=== PATIENT | female | born 1970 | race Caucasian/White ===

== ENCOUNTER → 2016-05-23 | Outpatient (CLI) | payer BC ==
[~2016-05-23] MED LIST: FAMO20TA5 PO; HYDR-3454 PO; bcp
--- NOTE | 2016-05-26 19:57 | Diagnostic Imaging Report ---
Bilateral screening mammogram The current study was also evaluated with a Computer Aided Detection (CAD) system. Indication: Screening. No current complaints stated on the questionnaire. COMPARISON: 05/14/15. FINDINGS: The breasts are composed of heterogeneously dense parenchyma which may decrease mammographic sensitivity. There are scattered benign-appearing calcifications. Allowing for technique and positional differences, no suspicious change is seen. IMPRESSION: Dense breasts with no definite change. ACR BI-RADS Category 2: Benign findings. Result letter will be mailed to the patient. Note: At least 10% of breast cancer is not imaged by mammography. Dictated by: Dictated on workstation # [id number]
== END ==
LOC: RAD 14:12
PROVIDERS: ATTEND Obstetrics & Gynecology
DX: Z12.31 Encounter for screening mammogram for malignant neoplasm of breast (principal)
CPT/HCPCS: 77067

== ENCOUNTER 2017-08-18 05:32 | Outpatient (CLI) | payer BC ==
[~2017-08-18] VITALS: Ht 165.1 cm; Wt 69.9 kg
[2017-08-21] MEDS ORDERED: OXYC-471 PO (13:29)
== END 2017-08-18 13:20 | disposition home or self-care (01) ==
LOC: PREOP 05:32
PROVIDERS: ATTEND Obstetrics & Gynecology
DX: Z01.818 Encounter for other preprocedural examination (principal)

== ENCOUNTER → 2017-09-10 | Outpatient (CLI) | payer BC ==
[~2017-09-10] MED LIST changes: +OXYC-471 PO
--- NOTE | 2017-09-10 19:56 | Diagnostic Imaging Report ---
INDICATION: Routine screening. COMPARISON: Comparison is made with prior mammogram from 05/23/2016 and 05/14/2015. TECHNIQUE: 2D and 3D bilateral screening mammography was performed with computer-aided detection (CAD) system. FINDINGS: Both breasts are heterogeneously dense, limiting the sensitivity of mammography. The overall parenchymal pattern is stable. There are benign calcifications bilaterally. No mass or malignant appearing microcalcifications are seen. Axillae are unremarkable. IMPRESSION: No mammographic features suspicious for malignancy are identified. ACR BI-RADS Category 2: Benign findings. Result letter will be mailed to the patient. Note: At least 10% of breast cancer is not imaged by mammography. Dictated by: Dictated on workstation # [id number]
== END ==
LOC: RAD 07:35
PROVIDERS: ATTEND Obstetrics & Gynecology
DX: Z12.31 Encounter for screening mammogram for malignant neoplasm of breast (principal)
CPT/HCPCS: 77067

== ENCOUNTER → 2018-05-06 | Outpatient (CLI) | payer BC ==
--- NOTE | 2018-05-06 16:55 | Diagnostic Imaging Report ---
CLINICAL INDICATION: Patient with left leg pain and swelling. COMPARISON: None. PROCEDURE: Real-time left lower extremity venous Doppler duplex evaluation is performed from the inguinal region through the popliteal fossa. The calf venous structures are also evaluated. FINDINGS: There is a roughly 10 cm in length segment of intravascular clot involving a branch of the left greater saphenous vein at the level of the knee. Otherwise, the deep venous system is well visualized and is easily compressible. There is no evidence of deep venous thrombosis, valvular incompetence, or significant collateral circulation. IMPRESSION: 1: There is a long segment of intravascular clot involving a branch of the left greater saphenous vein at the level of the knee. 2: There is no left lower extremity deep venous thrombosis. Preliminary report was called to Dr. Chari Leon by the product/device technologist at the time of this exam. Dictated by: Dictated on workstation # [id number]
== END ==
LOC: RAD 15:20
PROVIDERS: ATTEND Family Medicine
DX: I82.492 Acute embolism and thrombosis of other specified deep vein of left lower extremity (principal)

== ENCOUNTER 2018-09-10 06:47 | Emergency (ER) | payer BC ==
[~2018-09-10] VITALS: Ht 165.1 cm; Wt 70.3 kg
[2018-09-10] MEDS ORDERED: KETOROLAC 30 MG/ML VIAL ONE (06:50)
[2018-09-10] MEDS ORDERED: fentaNYL INJECTION 100 MCG/2 ML AMP ONE (06:50)
[2018-09-10] MEDS ORDERED: ONDANSETRON 4 MG/2 ML (SDV) Z0FRAN ONE (06:50)
[2018-09-10] MEDS ORDERED: NS IV 1000 ML 1,000 ML IV SCH (06:57)
[2018-09-10] MEDS ORDERED: KETOROLAC 30 MG/ML VIAL IVP STA (06:57)
[2018-09-10] MEDS ORDERED: fentaNYL INJECTION 100 MCG/2 ML AMP IVP STA ×3 (06:57→09:27)
[2018-09-10] MEDS ORDERED: ONDANSETRON 4 MG/2 ML (SDV) Z0FRAN IVP ONE ×2 (07:00→08:00)
[2018-09-10 07:07] LABS: BASOPHILS % (AUTO) 0 % (0-10); EOSINOPHILS # (AUTO) 0.1 10^3/uL (0.0-0.3); EOSINOPHILS % (AUTO) 1 % (0-10); HEMATOCRIT 43 % (35-52); HEMOGLOBIN 14.8 G/DL (11.5-16.0); LYMPHOCYTES # (AUTO) 3.5 X 10^3 (1.0-4.0); LYMPHOCYTES % (AUTO) 36 % (12-44); MEAN CORPUSCULAR HEMOGLOBIN 31 PG (25-34); MEAN CORPUSCULAR HGB CONC 35 G/DL (32-36); MEAN CORPUSCULAR VOLUME 90 FL (80-99); MEAN PLATELET VOLUME 9.4 FL (7.4-10.4); MONOCYTES # (AUTO) 0.8 X 10^3 (0.0-1.0); MONOCYTES % (AUTO) 8 % (0-12); NEUTROPHILS # (AUTO) 5.3 X 10^3 (1.8-7.8); NEUTROPHILS % (AUTO) 55 % (42-75); PLATELET COUNT 269 10^3/uL (130-400); RED CELL DISTRIBUTION WIDTH 12.7 % (10.0-14.5); WHITE BLOOD COUNT 9.6 10^3/uL (4.3-11.0)
--- NOTE | 2018-09-10 07:16 | NUR ---
Pt reports pain has improved and nausea is resolved.
[2018-09-10 07:25] LABS: ALBUMIN 4.2 GM/DL (3.2-4.5); CALCIUM 9.4 MG/DL (8.5-10.1); CREATININE SERUM 1.02 MG/DL (0.60-1.30); POTASSIUM 3.2 MMOL/L (3.6-5.0); TOTAL PROTEIN 6.8 GM/DL (6.4-8.2)
--- NOTE | 2018-09-10 07:29 | ED GU-Female ---
General Chief Complaint: Abdominal/GI Problems Stated Complaint: POSS KIDNEY STONE Nursing Triage Note: Pt rolling on floor in waiting room. Pt assisted to room 5. Pt c/o L flank pain that is radiating to the groin area. Pt reports hx of kidney stones. Nursing Sepsis Screen: No Definite Risk Source: patient Exam Limitations: no limitations History of Present Illness Date Seen by Provider: Sep 10, 2018 Time Seen by Provider: 06:51 Initial Comments Here with complaint of left flank pain. Onset 5:30 this morning. It is associated with nausea and vomiting. States pain was abrupt onset and quite severe. She cannot find a comfortable position. Has history of kidney stones but states this is worse than any pain she is ever felt before. Last kidney stone was in late childhood. Timing/Duration: this morning Severity/Quality: moderate, severe Location: left flank Radiation: groin Activities at Onset: sleep Prior Genitourinary Problems: none Sexual [place] History: not active Modifying Factors: Improves With Other (no exacerbating or relieving factors) Associated Symptoms: No dysuria, No fever/chills; nausea/vomiting Allergies and Home Medications Allergies Coded Allergies: No Known Drug Allergies (Unverified , 06/02/11) Home Medications Cephalexin 500 Mg Tablet, 500 MG PO BID Prescribed by: RANULFO MEDINA on 09/10/18 0849 Hydrocodone Bit/Acetaminophen 1 Tab Tab, 1-2 EACH PO Q6H PRN for PAIN-MODERATE Prescribed by: RANULFO MEDINA on 09/10/18 0849 Patient Home Medication List Home Medication List Reviewed: Yes Review of Systems Review of Systems Constitutional: see HPI; No chills; diaphoresis; No fever EENTM: no symptoms reported Respiratory: no symptoms reported Cardiovascular: no symptoms reported Gastrointestinal: see HPI Genitourinary: see HPI; denies dysuria, denies hematuria : No Musculoskeletal: no symptoms reported Skin: no symptoms reported Psychiatric/Neurological: No Symptoms Reported All Other Systemes Reviewed Negative Unless Noted: Yes Past Gexrpfn-Jrdkxd-Ynjgru Hx Past Med/Social Hx: Reviewed Nursing Past Med/Soc Hx Patient Social History Alcohol Use: Denies Use Recreational Drug Use: No 2nd Hand Smoke Exposure: No Recent Foreign Travel: No Contact w/Someone Who Travel: No Recent Infectious Disease Expo: No Recent Hopitalizations: No Immunizations Up To Date Date of Pneumonia Vaccine: Feb 07, 2010 Date of Influenza Vaccine: Dec 14, 2013 Seasonal Allergies Seasonal Allergies: Yes Past Medical History Surgeries: Yes (BONE GROWTH REMOVED FROM R KNEE) Gallbladder Respiratory: Yes (exercised induced asthma) 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 0.0oz. 70.838860dg; 25.6 BMI Method:Stated General Appearance: WD/WN, moderate distress HEENT: PERRL/EOMI, pharynx normal Neck: full range of motion, supple Cardiovascular: regular rate, rhythm, no murmur Respiratory: lungs clear, normal breath sounds Gastrointestinal: non tender, soft Back: normal inspection, no vertebral tenderness; No CVA tenderness (R); CVA tenderness (L) Extremities: non-tender, normal inspection Neurologic/Psychiatric: alert, oriented x 3 Skin: normal color, diaphoresis Progress/Results/Core Measures Suspected Sepsis Recent Fever Within 48 Hours: No Infection Criteria Present: None New/Unexplained Altered Menta: No Sepsis Screen: No Definite Risk SIRS Temperature:97.5 Pulse: 72 Respiratory Rate: 20 Laboratory Tests 09/10/18 06:52: White Blood Count 9.6 Blood Pressure 134 /80 Mean: 98 Laboratory Tests 09/10/18 06:52: Creatinine 1.02, Platelet Count 269, Total Bilirubin 1.0 Results/Orders Lab Results Laboratory Tests Test 09/10/18 06:52 09/10/18 07:30 Range/Units White Blood Count 9.6 4.3-11.0 10^3/uL Red Blood Count 4.78 4.35-5.85 10^6/uL Hemoglobin 14.8 11.5-16.0 G/DL Hematocrit 43 35-52 % Mean Corpuscular Volume 90 80-99 FL Mean Corpuscular Hemoglobin 31 25-34 PG Mean Corpuscular Hemoglobin Concent 35 32-36 G/DL Red Cell Distribution Width 12.7 10.0-14.5 % Platelet Count 269 130-400 10^3/uL Mean Platelet Volume 9.4 7.4-10.4 FL Neutrophils (%) (Auto) 55 42-75 % Lymphocytes (%) (Auto) 36 12-44 % Monocytes (%) (Auto) 8 0-12 % Eosinophils (%) (Auto) 1 0-10 % Basophils (%) (Auto) 0 0-10 % Neutrophils # (Auto) 5.3 1.8-7.8 X 10^3 Lymphocytes # (Auto) 3.5 1.0-4.0 X 10^3 Monocytes # (Auto) 0.8 0.0-1.0 X 10^3 Eosinophils # (Auto) 0.1 0.0-0.3 10^3/uL Basophils # (Auto) 0.0 0.0-0.1 10^3/uL Sodium Level 142 135-145 MMOL/L Potassium Level 3.2 L 3.6-5.0 MMOL/L Chloride Level 107 98-107 MMOL/L Carbon Dioxide Level 22 21-32 MMOL/L Anion Gap 13 5-14 MMOL/L Blood Urea Nitrogen 14 7-18 MG/DL Creatinine 1.02 0.60-1.30 MG/DL Estimat Glomerular Filtration Rate 58 BUN/Creatinine Ratio 14 Glucose Level 116 H 70-105 MG/DL Calcium Level 9.4 8.5-10.1 MG/DL Corrected Calcium 9.2 8.5-10.1 MG/DL Total Bilirubin 1.0 0.1-1.0 MG/DL Aspartate Amino Transf (AST/SGOT) 35 H 5-34 U/L Alanine Aminotransferase (ALT/SGPT) 49 0-55 U/L Alkaline Phosphatase 56 40-136 U/L Total Protein 6.8 6.4-8.2 GM/DL Albumin 4.2 3.2-4.5 GM/DL Serum Test, Qualitative NEGATIVE NEGATIVE Urine Color YELLOW Urine Clarity CLEAR Urine pH 6.5 5-9 Urine Specific [place] 1.020 1.016-1.022 Urine Protein 2+ H NEGATIVE Urine Glucose (UA) NEGATIVE NEGATIVE Urine Ketones 4+ H NEGATIVE Urine Nitrite NEGATIVE NEGATIVE Urine Bilirubin NEGATIVE NEGATIVE Urine Urobilinogen NORMAL NORMAL MG/DL Urine Leukocyte Esterase 1+ H NEGATIVE Urine RBC (Auto) 5+ H NEGATIVE Urine RBC >100 H /HPF Urine WBC 2-5 /HPF Urine Squamous Epithelial Cells 10-25 H /HPF Urine Renal Epithelial Cells NONE /HPF Urine Crystals PRESENT H /LPF Urine Amorphous Sediment MOD JARED URATES H /LPF Urine Bacteria MODERATE H /HPF Urine Casts NONE /LPF Urine Mucus NEGATIVE /LPF Urine Culture Indicated NO My Orders Orders - RANULFO MEDINA MD Fentanyl Injection (Sublimaze Injection (09/10/18 06:50) Ondansetron Injection (Zofran Injectio (09/10/18 06:50) Ketorolac Injection (Toradol Injection) (09/10/18 06:50) Cbc With Automated Diff (09/10/18 06:57) Comprehensive Metabolic Panel (09/10/18 06:57) Hcg,Qualitative Serum (09/10/18 06:57) Ua Culture If Indicated (09/10/18 06:57) Ed Iv/Invasive Line Start (09/10/18 06:57) Ns Iv 1000 Ml (Sodium Chloride 0.9%) (09/10/18 06:57) Ondansetron Injection (Zofran Injectio (09/10/18 07:00) Fentanyl Injection (Sublimaze Injection (09/10/18 06:57) Ketorolac Injection (Toradol Injection) (09/10/18 06:57) Ct Abd/Pelvis Wo(Kidney Stone) (09/10/18 07:43) Abdomen/Kub 1view (09/10/18 07:43) Fentanyl Injection (Sublimaze Injection (09/10/18 07:52) Ondansetron Injection (Zofran Injectio (09/10/18 08:00) Hydrocodone/Apap 5/325 Tablet (Lortab 5 (09/10/18 08:45) Ed Iv/Invasive Line Start (09/10/18 08:42) Lactated Ringers (Lr 1000 Ml Iv Solution (09/10/18 08:42) Fentanyl Injection (Sublimaze Injection (09/10/18 09:27) Medications Given in ED Current Medications Medications Dose Ordered Sig/Celsa Route Start Time Stop Time Status Last Admin Dose Admin Acetaminophen/ Hydrocodone Bitart 1 tab ONCE ONCE PO 09/10/18 08:45 09/10/18 08:46 DC 09/10/18 08:50 1 TAB Lactated Ringer's 1,000 ml @ 0 mls/hr Q0M ONCE IV 09/10/18 08:42 09/10/18 08:43 DC 09/10/18 08:48 1,000 MLS/HR Ondansetron HCl 4 mg ONCE ONCE IVP 09/10/18 07:00 09/10/18 07:01 DC 09/10/18 06:54 4 MG Ondansetron HCl 4 mg ONCE ONCE IVP 09/10/18 08:00 09/10/18 08:01 DC 09/10/18 07:52 4 MG Vital Signs/I&O 09/10/18 07:04 Temp 97.5 Pulse 72 Resp 20 B/P (MAP) 134/80 (98) Pulse Ox 100 O2 Delivery Room Air Capillary Refill : Less Than 3 Seconds Blood Pressure Mean: 98 Progress Note : Progress Note Seen and evaluated. IV, labs, UA, normal saline 1 L bolus, Zofran 4 mg IV, Toradol 30 mg IV and fentanyl 50 g IV ordered. Anticipate CT scan pending labs. CT abdomen pelvis and KUB ordered. 0840: CT complete. Pain is improved although still has some come and go pain. Stone noted distal ureter just proximal to the UVJ on the left. Port was ketones noted in urine. Patient admits that she is probably a bit dehydrated because of working outside. We will go ahead and give a second liter of fluid with LR. Hydrocodone 5/325 one tab by mouth given. Discharge instructions given. Patient verbalize understanding instructions and agreement with plan. Diagnostic Imaging Diagonstic Imaging: CT Plain Films/CT/US/NM/MRI: abdomen, pelvis Comments NAME: [facility] REC#: [id number] PT STATUS: REG ER : 1970 PHYSICIAN: RANULFO MEDINA MD ADMIT DATE: 09/10/18/ER Draft Date of Exam:09/10/18 CT ABD/PELVIS WO(KIDNEY STONE) PROCEDURE: CT urinary tract, rule out kidney stone. TECHNIQUE: Multiple contiguous axial images were obtained through the abdomen and pelvis without the use of intravenous contrast. Auto Exposure Controls were utilized during the CT exam to meet ALARA standards for radiation dose reduction. INDICATION: Left-sided abdominal pain. No prior studies are available for comparison. The lung bases are clear. The liver is unremarkable. Gallbladder appears to be surgically absent. No biliary duct dilatation is seen. The pancreas and spleen are unremarkable. No adrenal mass is detected. The right kidney is unremarkable. Left kidney is enlarged. There is mild to moderate left-sided hydroureteronephrosis. This appears to be caused by a small distal left ureteric calculus just above the UVJ measuring approximately 3 mm. No bladder calculi are seen. Aorta is non-aneurysmal. Small and large bowel loops are normal caliber. Appendix is unremarkable. There is no ascites. Uterus is unremarkable. IMPRESSION: 3 mm distal left ureteric calculus producing moderate hydroureteronephrosis. No other significant abnormality is seen. Dictated on workstation # [id number] Dict: 09/10/18817 Trans: 09/10/18828 CV [id number] Interpreted by: NEHEMIAH PALOMARES MD Electronically signed by: Departure Impression Primary Impression: Kidney stone Disposition: HOME, SELF-CARE Condition: Improved Departure-Patient Inst. Decision time for Depature: 08:44 Referrals: JUAN A OWENS MD (PCP/Family) Primary Care Physician THUY LOCKHART MD Patient Instructions: Kidney Stones (DC) Add. Discharge Instructions: All discharge instructions reviewed with patient and/or family. Voiced understan makayla. You may take ibuprofen 600 mg every 8 hours as needed for pain. You should take this scheduled over the next 3 days and then as needed. Take other medications as directed. If you are not taking the prescribed pain medicine and then you may also take Tylenol/acetaminophen 1000 mg every 8 hours as needed for pain. Do not take that with the prescribed pain medicine as they both have acetaminophen in them. It is very important that he drink plenty of fluids. Return for worse pain, fever, vomiting, weakness, breathing problems or other concerns as needed. You should strain your urine each time he go to the bathroom and monitor to see if you have collected the stone. If you are having persistent pain and the stone is not passing then you need to call and make appointment with Dr. Lockhart on Thursday for recheck and further evaluation and for possible further procedures to remove the stone. Scripts Hydrocodone Bit/Acetaminophen (Hydrocodone/Acetaminophen 5/325mg Tablet) 1 Tab Tab 1-2 EACH PO Q6H PRN for PAIN-MODERATE MDD 10 for 3 Days, #12 TAB 0 Refills Prov: RANULFO MEDINA MD 09/10/18 Cephalexin (Cephalexin) 500 Mg Tablet 500 MG PO BID, #14 TAB 0 Refills Prov: RANULFO MEDINA MD 09/10/18 Copy Copies To 1: THUY LOCKHART MD, TIMOTHY D MD Sep 10, 2018 07:29
[2018-09-10 07:41] LABS: BILIRUBIN,URINE NEGATIVE (NEGATIVE); CLARITY,URINE CLEAR; COLOR,URINE YELLOW; GLUCOSE, URINE (UA) NEGATIVE (NEGATIVE); KETONES,URINE 4+ (NEGATIVE); LEUKOCYTE ESTERASE ,URINE 1+ (NEGATIVE); NITRITE,URINE NEGATIVE (NEGATIVE); PH,URINE 6.5 (5-9); PROTEIN,URINE 2+ (NEGATIVE); UROBILINOGEN,URINE NORMAL (NORMAL)
--- NOTE | 2018-09-10 07:48 | NUR ---
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 Dr. Salvador notified.
[2018-09-10 08:05] LABS: AMORPHOUS SEDIMENT,UR MOD AMOR URATES /LPF; BACTERIA,URINE MODERATE /HPF; RBC,URINE >100 /HPF
--- NOTE | 2018-09-10 08:19 | NUR ---
Pt back from CT. Pt reports pain and nausea have improved at this time.
--- OUTSIDE RECORDS SUMMARY | 2018-09-10 08:27 | XMS REPORT | CCD ---
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 Assistant Name Role Phone PP Unavailable CCM Unavailable Summary Purpose Interface Exchange Insurance Providers Payer name Policy type / Coverage type Covered democrat ID Effective Begin Date Effective End Date [facility] Blue [facility] [id number] Unknown Unknown Family history Daughter Diagnosis Age At Onset Asthma Unknown Father Diagnosis Age At Onset Cancer Unknown Mother Diagnosis Age At Onset Hyperlipidemia Unknown Social History Social History Element Codes Description Effective Dates Marital status Unknown 04/30/2015 Number of children Unknown 3 04/30/[address]: 967204258 Never smoker 04/30/[address]: 319397100 Never drinks alcohol 04/30/2015 Allergies, Adverse Reactions, Alerts Substance Reaction Codes Entered Date Inactivated Date Status * NO KNOWN DRUG ALLERGIES Unknown 04/30/2015 No Inactive Date Active Past Medical History Illness Codes Condition Status Onset Date Resolved Date Polycystic ovarian syndrome ICD-9: 256.4 ICD-10: E28.2 Active 05/19/2018 Unknown Phlebitis and thrombophlebitis of superficial vessels of left lower extremity ICD-9: 451.0 ICD-10: I80.02 Active 05/06/2018 Unknown Pain in thoracic spine ICD-9: 724.1 ICD-10: M54.6 Active 2018 Unknown Acute serous otitis media, left ear ICD-9: 381.01 ICD-10: H65.02 Active 03/16/2018 Unknown Impacted cerumen, bilateral ICD-9: 380.4 ICD-10: H61.23 Active 03/16/2018 Unknown Left upper quadrant pain ICD-9: 789.02 ICD-10: R10.12 Active 04/24/2017 Unknown Dysuria ICD-9: 788.1 ICD-10: R30.0 Active 09/26/2015 Unknown Acute laryngopharyngitis ICD-9: 465.0 ICD-10: J06.0 Active 05/13/2016 Unknown Other allergic rhinitis ICD-9: 477.8 ICD-10: J30.89 Active 05/13/2016 Unknown Other acute sinusitis ICD- 9: 461.8 ICD-10: J01.80 Active 05/13/2016 Unknown Strain of other muscle(s) and tendon(s) at lower leg level, right leg, initial encounter ICD-9: 844.8 ICD-10: S86.811A Active 10/10/2015 Unknown Right upper quadrant pain ICD-9: 789.01 ICD-10: R10.11 Active 09/26/2015 Unknown Noninfective gastroenteritis and colitis, unspecified ICD-9: 787.91 ICD-10: K52.9 Active 05/28/2015 Unknown Nontoxic multinodular goiter ICD-9: 241.1 ICD-10: E04.2 Active 05/28/2015 Unknown Problems Condition Codes Effective Dates Condition Status Polycystic ovarian syndrome ICD-9: 256.4 ICD-10: E28.2 05/19/2018 Active Phlebitis and thrombophlebitis of superficial vessels of left lower extremity ICD-9: 451.0 ICD-10: I80.02 05/06/2018 Active Pain in thoracic spine ICD-9: 724.1 ICD-10: M54.6 2018 Active Acute serous otitis media, left ear ICD-9: 381.01 ICD-10: H65.02 03/16/2018 Active Impacted cerumen, bilateral ICD-9: 380.4 ICD-10: H61.23 03/16/2018 Active Left upper quadrant pain ICD-9: 789.02 ICD-10: R10.12 04/24/2017 Active Dysuria ICD-9: 788.1 ICD-10: R30.0 09/26/2015 Active Acute laryngopharyngitis ICD-9: 465.0 ICD-10: J06.0 05/13/2016 Active Other allergic rhinitis ICD-9: 477.8 ICD-10: J30.89 05/13/2016 Active Other acute sinusitis ICD- 9: 461.8 ICD-10: J01.80 05/13/2016 Active Strain of other muscle(s) and tendon(s) at lower leg level, right leg, initial encounter ICD-9: 844.8 ICD-10: S86.811A 10/10/2015 Active Right upper quadrant pain ICD-9: 789.01 ICD-10: R10.11 09/26/2015 Active Noninfective gastroenteritis and colitis, unspecified ICD-9: 787.91 ICD-10: K52.9 05/28/2015 Active Nontoxic multinodular goiter ICD-9: 241.1 ICD-10: E04.2 05/28/2015 Active Medications Medication Codes Instructions Start Date Stop Date Status Fill Instructions cephalexin 500 mg tablet RxNorm: 140409 1 Capsule(s) PO TID 05/06/2018 05/15/2018 Inactive cyclobenzaprine 5 mg tablet RxNorm: 044844 1 Tablet(s) PO TID as needed muscle spasms 2018 05/08/2018 Inactive Augmentin 500 mg-125 mg tablet RxNorm: 130217 1 Tablet(s) PO TID 03/16/2018 03/22/2018 Inactive take with probiotic BID prednisone 20 mg tablet RxNorm: 141324 2 Tablet(s) PO daily to equil 40mg 02/17/2017 02/21/2017 Inactive prednisone 20 mg tablet RxNorm: 444785 2 Tablet(s) PO daily 02/17/2017 02/16/2017 Inactive Augmentin 500 mg-125 mg tablet RxNorm: 506439 1 Tablet(s) PO TID 02/17/2017 02/23/2017 Inactive take with probiotic BID Kenalog 40 mg/mL suspension for injection RxNorm: 0616586 Milliliter(s) Inj 02/02/2017 02/02/2017 Inactive Zithromax Z-Everardo 250 mg tablet RxNorm: 017187 1 Tablet(s) PO UD 02/02/2017 03/15/2018 Inactive Kenalog 40 mg/mL suspension for injection RxNorm: 9894413 1 Milliliter(s) Inj 05/13/2016 05/13/2016 Inactive Phenergan with Codeine Syrup RxNorm: 5-10 Milliliter(s) PO QID as needed 05/13/2016 03/15/2018 Inactive Augmentin 500 mg-125 mg tablet RxNorm: 912348 1 Tablet(s) PO TID 05/13/2016 05/19/2016 Inactive Ventolin HFA 90 mcg/actuation aerosol inhaler RxNorm: 355140 1 Puff(s) INH PRN 05/06/2016 03/15/2018 Inactive Augmentin 500 mg-125 mg tablet RxNorm: 598296 1 Tablet(s) PO TID 09/27/2015 10/03/2015 Inactive Augmentin 500 mg-125 mg tablet RxNorm: 501763 1 Tablet(s) PO TID 09/27/2015 09/26/2015 Inactive Bactrim DS 800 mg-160 mg tablet RxNorm: 232423 1 Tablet(s) PO BID 09/21/2015 09/27/2015 Inactive Questran 4 gram oral powder RxNorm: 706173 2 Gram(s) PO daily 04/30/2015 05/29/2015 Inactive Sprintec (28) 0.25 mg-35 mcg tablet RxNorm: 603457 1 Tablet(s) PO daily 04/30/2015 05/05/2018 Inactive Ventolin HFA 90 mcg/actuation aerosol inhaler RxNorm: 273012 1 Puff(s) INH PRN No Start Date 05/05/2016 Inactive Medication Administered Medication Codes Instructions Start Date Status Kenalog 40 mg/mL suspension for injection RxNorm: 5335720 Milliliter 02/02/2017 No longer Active Kenalog 40 mg/mL suspension for injection RxNorm: 2809907 1Milliliter 05/13/2016 No longer Active Immunizations Vaccine Codes Date Status Influenza CVX: 141 12/31/2014 completed Assessments Condition Codes Effective Dates Polycystic ovarian syndrome ICD-10: E28.2 ICD-9: 256.4 05/19/2018 Phlebitis and thrombophlebitis of superficial vessels of left lower extremity ICD-10: I80.02 ICD-9: 451.0 05/06/2018 Pain in thoracic spine ICD-10: M54.6 ICD-9: 724.1 2018 Acute serous otitis media, left ear ICD-10: H65.02 ICD-9: 381.01 03/16/2018 Impacted cerumen, bilateral ICD-10: H61.23 ICD-9: 380.4 03/16/2018 Left upper quadrant pain ICD-10: R10.12 ICD-9: 789.02 04/24/2017 Dysuria ICD-10: R30.0 ICD-9: 788.1 03/04/2017 Acute laryngopharyngitis ICD-10: J06.0 ICD-9: 465.0 02/02/2017 Other allergic rhinitis ICD-10: J30.89 ICD-9: 477.8 02/02/2017 Other acute sinusitis ICD-10: J01.80 ICD-9: 461.8 05/13/2016 Strain of other muscle(s) and tendon(s) at lower leg level, right leg, initial encounter ICD-10: S86.811A ICD-9: 844.8 10/11/2015 Right upper quadrant pain ICD-10: R10.11 ICD-9: 789.01 09/27/2015 Nontoxic multinodular goiter ICD-10: E04.2 ICD-9: 241.1 05/29/2015 Noninfective gastroenteritis and colitis, unspecified ICD-10: K52.9 ICD-9: 787.91 05/29/2015 Reason For Visit Reason For Visit Effective Dates Notes lower leg pain 05/19/2018 lower leg pain 05/06/2018 flank pain 2018 earache 03/16/2018 abdominal pain 04/24/2017 sinus congestion 02/02/2017 sinus congestion 05/13/2016 lower leg pain 10/11/2015 flank pain 09/27/2015 flank pain 09/21/2015 diarrhea 05/29/2015 diarrhea 04/30/2015 Results Observation Observation Code Item Item Code Result Date Urine Culture Ucult Preliminary NO Growth Day 1 09/29/2015 Urine Culture Ucult Complete Growth of aerobe sent to ref lab 09/29/2015 Urine Culture Ucult Complete NO Growth Day 2 09/24/2015 Urine Culture Ucult Preliminary NO Growth Day 1 09/24/2015 Comp Metabolic Rfm576 NA 138 mEq/L 05/02/2015 Comp Metabolic Bdz535 K 3.8 mEq/L 05/02/2015 Comp Metabolic Jck389 CL 106 mEq/L 05/02/2015 Comp Metabolic Uia284 CO2 24.0 mEq/L 05/02/2015 Comp Metabolic Rma088 ANION GAP 12 05/02/2015 Comp Metabolic Rff008 GLUCOSE 102 mg/dL 05/02/2015 Comp Metabolic Bxs652 Creat 0.9 mg/dL 05/02/2015 Comp Metabolic Ece325 eGFR 74 ml/min/1.73m2 05/02/2015 Comp Metabolic Esv853 BUN 14 mg/dL 05/02/2015 Comp Metabolic Ivx769 B/C Ratio 15.9 Ratio 05/02/2015 Comp Metabolic Pag894 CALCIUM 9.0 mg/dL 05/02/2015 Comp Metabolic Pug196 ALK PHOS 40 U/L 05/02/2015 Comp Metabolic Ixb563 AST(SGOT) 14 U/L 05/02/2015 Comp Metabolic Gwb942 ALT(SGPT) 9 U/L 05/02/2015 Comp Metabolic Cxf381 BILI T 0.6 mg/dL 05/02/2015 Comp Metabolic Fdi075 ALBUMIN 4.2 g/dL 05/02/2015 Comp Metabolic Yas187 TPRO 6.5 g/dL 05/02/2015 Comp Metabolic Nzx126 GLOB 2.3 g/dL 05/02/2015 Comp Metabolic Kvh804 A/G Ratio 1.8 Ratio 05/02/2015 Comp Metabolic Kyi103 Osmo 276 mOsmo 05/02/2015 Cbc With Differential Ord2 WBC 8.87 K/ul 05/02/2015 Cbc With Differential Ord2 RBC 4.67 M/ul 05/02/2015 Cbc With Differential Ord2 HGB 14.5 g/dl 05/02/2015 Cbc With Differential Ord2 Neut% 68.1 % 05/02/2015 Cbc With Differential Ord2 HCT 42.2 % 05/02/2015 Cbc With Differential Ord2 MCV 90.4 fl 05/02/2015 Cbc With Differential Ord2 Lymph% 24.6 % 05/02/2015 Cbc With Differential Ord2 MCH 31.0 pg 05/02/2015 Cbc With Differential Ord2 [place]iscoe% 6.1 % 05/02/2015 Cbc With Differential Ord2 MCHC 34.4 pg 05/02/2015 Cbc With Differential Ord2 Eos% 0.7 % 05/02/2015 Cbc With Differential Ord2 PLT 235 K/ul 05/02/2015 Cbc With Differential Ord2 Baso% 0.5 % 05/02/2015 Cbc With Differential Ord2 RDW 12.8 % 05/02/2015 Cbc With Differential Ord2 Neut ABS# 6.05 K/ul 05/02/2015 Cbc With Differential Ord2 Lymph ABS# 2.18 K/ul 05/02/2015 Cbc With Differential Ord2 [place] ABS# 0.5 K/ul 05/02/2015 Cbc With Differential Ord2 Eos ABS# 0.1 K/ul 05/02/2015 Cbc With Differential Ord2 Baso ABS# 0.0 K/ul 05/02/2015 Cbc With Differential Ord2 New Analyzer Notice Please note new ref ranges starting 03-14-2015 due to implemntation of new five part differential hematolgy analyzer. 05/02/2015 Lipid Ord30 CHOL 192 mg/dL 05/02/2015 Lipid Ord30 HDL 47.0 mg/dl 05/02/2015 Lipid Ord30 TRIG 239 mg/dL 05/02/2015 Lipid Ord30 LDL 97 mg/dL 05/02/2015 Lipid Ord30 C/HDL 4.1 Ratio 05/02/2015 Tsh Ord6 hTSH II 2.02 uIU/mL 05/02/2015 Review of Systems System Result Effective Dates Constitutional recent illness 05/19/2018 Constitutional No fatigue 05/19/2018 Constitutional No fever 05/19/2018 Cardiovascular No chest pain/pressure 05/19/2018 Cardiovascular No dyspnea 05/19/2018 Cardiovascular No fatigue 05/19/2018 Respiratory No chest tightness 05/19/2018 Respiratory No cough 05/19/2018 Gastrointestinal No abdominal pain 05/19/2018 Gastrointestinal No nausea 05/19/2018 Psychiatric No anxiety 05/19/2018 Constitutional recent illness 05/06/2018 Constitutional No fatigue 05/06/2018 Constitutional No fever 05/06/2018 Cardiovascular No chest pain/pressure 05/06/2018 Cardiovascular No dyspnea 05/06/2018 Cardiovascular No fatigue 05/06/2018 Respiratory No cough 05/06/2018 Respiratory No chest tightness 05/06/2018 Gastrointestinal No abdominal pain 05/06/2018 Gastrointestinal No nausea 05/06/2018 Psychiatric No anxiety 05/06/2018 Cardiovascular edema 05/06/2018 Constitutional No recent illness 2018 Constitutional No chills 2018 Constitutional No fever 2018 Eyes No eye erythema 2018 Ears/Nose/Throat/Neck No nasal discharge 2018 Cardiovascular No chest pain/pressure 2018 Cardiovascular No dyspnea 2018 Respiratory No cough 2018 Respiratory No dyspnea 2018 Musculoskeletal joint complaint 2018 Neurologic No alteration of consciousness 2018 Neurologic No mental status change 2018 Genitourinary/Nephrology flank pain 2018 Genitourinary/Nephrology No dysuria 2018 Constitutional No recent illness 03/16/2018 Constitutional No chills 03/16/2018 Constitutional No diaphoresis 03/16/2018 Constitutional No fever 03/16/2018 Eyes No eye erythema 03/16/2018 Ears/Nose/Throat/Neck nasal allergies 03/16/2018 Ears/Nose/Throat/Neck nasal discharge 03/16/2018 Ears/Nose/Throat/Neck otalgia 03/16/2018 Ears/Nose/Throat/Neck postnasal drip 03/16/2018 Cardiovascular No chest pain/pressure 03/16/2018 Cardiovascular No dyspnea 03/16/2018 Ears/Nose/Throat/Neck cerumen 03/16/2018 Respiratory No cough 03/16/2018 Respiratory No chest congestion 03/16/2018 Gastrointestinal No abdominal pain 03/16/2018 Neurologic No alteration of consciousness 03/16/2018 Neurologic No mental status change 03/16/2018 Constitutional No recent illness 04/24/2017 Constitutional No chills 04/24/2017 Constitutional No diaphoresis 04/24/2017 Constitutional No fever 04/24/2017 Eyes No eye erythema 04/24/2017 Ears/Nose/Throat/Neck No nasal discharge 04/24/2017 Cardiovascular No chest pain/pressure 04/24/2017 Cardiovascular No dyspnea 04/24/2017 Respiratory No cough 04/24/2017 Respiratory No chest congestion 04/24/2017 Gastrointestinal abdominal pain 04/24/2017 Gastrointestinal No constipation 04/24/2017 Gastrointestinal No diarrhea 04/24/2017 Gastrointestinal No odynophagia 04/24/2017 Gastrointestinal No nausea 04/24/2017 Genitourinary/Nephrology No dysuria 04/24/2017 Genitourinary/Nephrology flank pain 04/24/2017 Musculoskeletal back pain 04/24/2017 Dermatologic No rash 04/24/2017 Neurologic No alteration of consciousness 04/24/2017 Neurologic No mental status change 04/24/2017 Constitutional recent illness 02/02/2017 Constitutional chills 02/02/2017 Constitutional No diaphoresis 02/02/2017 Constitutional fever 02/02/2017 Eyes No eye erythema 02/02/2017 Ears/Nose/Throat/Neck nasal allergies 02/02/2017 Ears/Nose/Throat/Neck nasal discharge 02/02/2017 Ears/Nose/Throat/Neck postnasal drip 02/02/2017 Ears/Nose/Throat/Neck sinus congestion 02/02/2017 Ears/Nose/Throat/Neck sore throat 02/02/2017 Cardiovascular No chest pain/pressure 02/02/2017 Cardiovascular No dyspnea 02/02/2017 Respiratory No chest congestion 02/02/2017 Respiratory cough 02/02/2017 Respiratory No dyspnea 02/02/2017 Gastrointestinal No constipation 02/02/2017 Gastrointestinal No diarrhea 02/02/2017 Gastrointestinal No nausea 02/02/2017 Gastrointestinal No vomiting 02/02/2017 Dermatologic No rash 02/02/2017 Neurologic No alteration of consciousness 02/02/2017 Neurologic No mental status change 02/02/2017 Constitutional recent illness 05/13/2016 Constitutional No chills 05/13/2016 Constitutional No diaphoresis 05/13/2016 Constitutional No fever 05/13/2016 Eyes No eye erythema 05/13/2016 Ears/Nose/Throat/Neck nasal allergies 05/13/2016 Ears/Nose/Throat/Neck nasal discharge 05/13/2016 Ears/Nose/Throat/Neck postnasal drip 05/13/2016 Ears/Nose/Throat/Neck sinus congestion 05/13/2016 Ears/Nose/Throat/Neck sore throat 05/13/2016 Cardiovascular No chest pain/pressure 05/13/2016 Cardiovascular No dyspnea 05/13/2016 Respiratory No chest congestion 05/13/2016 Respiratory cough 05/13/2016 Respiratory No dyspnea 05/13/2016 Gastrointestinal No constipation 05/13/2016 Gastrointestinal No diarrhea 05/13/2016 Gastrointestinal No nausea 05/13/2016 Gastrointestinal No vomiting 05/13/2016 Dermatologic No rash 05/13/2016 Neurologic No alteration of consciousness 05/13/2016 Neurologic No mental status change 05/13/2016 Respiratory productive sputum 05/13/2016 Constitutional No fever 10/11/2015 Eyes No vision change 10/11/2015 Ears/Nose/Throat/Neck No nasal allergies 10/11/2015 Ears/Nose/Throat/Neck No nasal discharge 10/11/2015 Cardiovascular No chest pain/pressure 10/11/2015 Cardiovascular No dyspnea 10/11/2015 Respiratory No cough 10/11/2015 Neurologic No alteration of consciousness 10/11/2015 Neurologic No mental status change 10/11/2015 Eyes No eye erythema 10/11/2015 Respiratory No dyspnea 10/11/2015 Musculoskeletal muscle weakness 10/11/2015 Constitutional No fever 09/27/2015 Eyes No vision change 09/27/2015 Ears/Nose/Throat/Neck No nasal allergies 09/27/2015 Cardiovascular No chest pain/pressure 09/27/2015 Respiratory No cough 09/27/2015 Musculoskeletal No joint complaint 09/27/2015 Ears/Nose/Throat/Neck No nasal discharge 09/27/2015 Cardiovascular No dyspnea 09/27/2015 Genitourinary/Nephrology flank pain 09/27/2015 Genitourinary/Nephrology urinary frequency 09/27/2015 Neurologic No alteration of consciousness 09/27/2015 Neurologic No mental status change 09/27/2015 Constitutional No fever 09/21/2015 Ears/Nose/Throat/Neck No nasal allergies 09/21/2015 Ears/Nose/Throat/Neck No nasal discharge 09/21/2015 Cardiovascular No chest pain/pressure 09/21/2015 Cardiovascular No dyspnea 09/21/2015 Respiratory No cough 09/21/2015 Genitourinary/Nephrology flank pain 09/21/2015 Genitourinary/Nephrology urinary frequency 09/21/2015 Musculoskeletal No joint complaint 09/21/2015 Neurologic No alteration of consciousness 09/21/2015 Neurologic No mental status change 09/21/2015 Constitutional No diaphoresis 09/21/2015 Constitutional No chills 09/21/2015 Eyes No eye erythema 09/21/2015 Respiratory No dyspnea 09/21/2015 Dermatologic No rash 09/21/2015 Gastrointestinal No vomiting 09/21/2015 Gastrointestinal No nausea 09/21/2015 Constitutional No recent illness 05/29/2015 Constitutional No anorexia 05/29/2015 Constitutional No night sweats 05/29/2015 Constitutional No chills 05/29/2015 Constitutional No diaphoresis 05/29/2015 Constitutional No fatigue 05/29/2015 Constitutional No fever 05/29/2015 Constitutional No insomnia 05/29/2015 Constitutional No malaise 05/29/2015 Constitutional No weight loss 05/29/2015 Constitutional No weight gain 05/29/2015 Constitutional No obesity 05/29/2015 Eyes No vision change 05/29/2015 Ears/Nose/Throat/Neck No headache 05/29/2015 Ears/Nose/Throat/Neck No nasal allergies 05/29/2015 Ears/Nose/Throat/Neck No nasal discharge 05/29/2015 Ears/Nose/Throat/Neck No otalgia 05/29/2015 Ears/Nose/Throat/Neck No otitis media 05/29/2015 Ears/Nose/Throat/Neck No sinus congestion 05/29/2015 Ears/Nose/Throat/Neck postnasal drip 05/29/2015 Cardiovascular No edema 05/29/2015 Cardiovascular No chest pain/pressure 05/29/2015 Respiratory No cough 05/29/2015 Respiratory No cigarette smoking 05/29/2015 Respiratory No chest tightness 05/29/2015 Respiratory No chest congestion 05/29/2015 Respiratory No dyspnea on exertion 05/29/2015 Respiratory No dyspnea 05/29/2015 Gastrointestinal constipation 05/29/2015 Gastrointestinal diarrhea 05/29/2015 Genitourinary/Nephrology No dysuria 05/29/2015 Musculoskeletal No muscle weakness 05/29/2015 Musculoskeletal No myalgias 05/29/2015 Musculoskeletal No joint complaint 05/29/2015 Dermatologic No sores 05/29/2015 Dermatologic No rash 05/29/2015 Psychiatric No depression 05/29/2015 Psychiatric No anxiety 05/29/2015 Constitutional No recent illness 04/30/2015 Constitutional No anorexia 04/30/2015 Constitutional No night sweats 04/30/2015 Constitutional No chills 04/30/2015 Constitutional No diaphoresis 04/30/2015 Constitutional No fatigue 04/30/2015 Constitutional No fever 04/30/2015 Constitutional No insomnia 04/30/2015 Constitutional No malaise 04/30/2015 Constitutional No weight loss 04/30/2015 Constitutional No weight gain 04/30/2015 Eyes No eye discharge 04/30/2015 Eyes No eye erythema 04/30/2015 Ears/Nose/Throat/Neck No dizziness 04/30/2015 Ears/Nose/Throat/Neck No headache 04/30/2015 Ears/Nose/Throat/Neck No nasal discharge 04/30/2015 Ears/Nose/Throat/Neck No nasal allergies 04/30/2015 Cardiovascular No chest pain/pressure 04/30/2015 Cardiovascular No edema 04/30/2015 Cardiovascular No dyspnea 04/30/2015 Respiratory asthma 04/30/2015 Respiratory No cough 04/30/2015 Gastrointestinal abdominal pain 04/30/2015 Gastrointestinal No constipation 04/30/2015 Gastrointestinal diarrhea 04/30/2015 Gastrointestinal No nausea 04/30/2015 Gastrointestinal No vomiting 04/30/2015 Genitourinary/Nephrology No dysuria 04/30/2015 Musculoskeletal No joint complaint 04/30/2015 Dermatologic No rash 04/30/2015 Neurologic No alteration of consciousness 04/30/2015 Psychiatric No anxiety 04/30/2015 Psychiatric No depression 04/30/2015 Endocrine No dry or coarse skin 04/30/2015 Hematologic/Lymphatic No abnormal bleeding and bruising 04/30/2015 Physical Exam Exam Name System Name Item Name Status Result Effective Dates Notes Full Exam - General 1994 Constitutional general appearance Overall: well developed 05/19/2018 None Full Exam - General 1994 Constitutional general appearance Overall: in no acute distress 05/19/2018 None Full Exam - General 1994 Constitutional general appearance Overall: well nourished 05/19/2018 None Full Exam - General 1994 Respiratory auscultation Overall: breath sounds clear bilaterally 05/19/2018 None Full Exam - General 1994 Respiratory respiratory effort/rhythm Overall: no retractions 05/19/2018 None Full Exam - General 1994 Respiratory respiratory effort/rhythm Overall: normal rate 05/19/2018 None Full Exam - General 1994 Cardiovascular extremities Overall: no clubbing 05/19/2018 None Full Exam - General 1994 Cardiovascular auscultation of heart Overall: regular rate 05/19/2018 None Full Exam - General 1994 Cardiovascular auscultation of heart Overall: normal heart sounds 05/19/2018 None Full Exam - General 1994 Cardiovascular auscultation of heart Overall: no murmurs 05/19/2018 None Full Exam - General 1994 Psychiatric orientation/consciousness Overall: oriented to person, place and time 05/19/2018 None Full Exam - General 1994 Psychiatric mood and affect Overall: normal mood and affect 05/19/2018 None Full Exam - General 1994 Psychiatric mood and affect Mood: happy 05/19/2018 None Full Exam - General 1994 Integument inspection of skin Overall: few scattered moles, no gross abnormalities 05/19/2018 None Full Exam - General 1994 Constitutional general appearance Overall: well nourished 05/06/2018 None Full Exam - General 1994 Constitutional general appearance Overall: well developed 05/06/2018 None Full Exam - General 1994 Constitutional general appearance Overall: in no acute distress 05/06/2018 None Full Exam - General 1994 Psychiatric orientation/consciousness Overall: oriented to person, place and time 05/06/2018 None Full Exam - General 1994 Psychiatric mood and affect Mood: happy 05/06/2018 None Full Exam - General 1994 Psychiatric mood and affect Overall: normal mood and affect 05/06/2018 None Full Exam - General 1994 Integument inspection of skin Dermatitis: erythema 05/06/2018 medial left knee ttp Full Exam - General 1994 Cardiovascular extremities Overall: no clubbing 05/06/2018 None Full Exam - General 1994 Cardiovascular auscultation of heart Overall: regular rate 05/06/2018 None Full Exam - General 1994 Cardiovascular auscultation of heart Overall: normal heart sounds 05/06/2018 None Full Exam - General 1994 Cardiovascular auscultation of heart Overall: no murmurs 05/06/2018 None Full Exam - General 1994 Respiratory auscultation Overall: breath sounds clear bilaterally 05/06/2018 None Full Exam - General 1994 Respiratory respiratory effort/rhythm Overall: normal rate 05/06/2018 None Full Exam - General 1994 Respiratory respiratory effort/rhythm Overall: no retractions 05/06/2018 None Full Exam - Orthopedics Constitutional general appearance Overall: well nourished 2018 None Full Exam - Orthopedics Constitutional general appearance Overall: well developed 2018 None Full Exam - Orthopedics Constitutional general appearance Overall: in no acute distress 2018 None Full Exam - Orthopedics Eyes conjunctiva/eyelids Overall: conjunctiva clear 2018 None Full Exam - Orthopedics Eyes conjunctiva/eyelids Overall: eyelids normal 2018 None Full Exam - Orthopedics Ears/Nose/Throat lips/teeth/gingiva Overall: benign lips 2018 None Full Exam - Orthopedics Ears/Nose/Throat oral cavity/pharynx/larynx Overall: oral mucosa clear 2018 None Full Exam - Orthopedics Respiratory respiratory effort/rhythm Overall: no retractions 2018 None Full Exam - Orthopedics Respiratory respiratory effort/rhythm Overall: normal rate 2018 None Full Exam - Orthopedics Psychiatric orientation/consciousness Overall: oriented to person, place and time 2018 None Full Exam - Orthopedics Psychiatric mood and affect Overall: normal mood and affect 2018 None Full Exam - Orthopedics Psychiatric appearance Overall: well-groomed, good eye contact 2018 None Full Exam - Orthopedics Musculoskeletal gait and station Overall: normal gait 2018 None Full Exam - Orthopedics MS: head/neck insp & palp - H/N Overall: head atraumatic 2018 None Full Exam - Orthopedics MS: spine/rib/pelvis insp & palp - S/R/P Lumbar spine palpation: tender lumbar spinous processes 2018 None Full Exam - Orthopedics MS: spine/rib/pelvis insp & palp - S/R/P Lumbar spine palpation: tender facet joints 2018 None Full Exam - Orthopedics MS: spine/rib/pelvis insp & palp - S/R/P Thoracic/lumbar muscles palpation: tender left parathoracic 2018 None Full Exam - ENT Constitutional general appearance Overall: well nourished 03/16/2018 None Full Exam - ENT Constitutional general appearance Overall: well developed 03/16/2018 None Full Exam - ENT Constitutional general appearance Overall: in no acute distress 03/16/2018 None Full Exam - ENT Ears/Nose/Throat otoscopic exam Left external auditory canal: erythematous 03/16/2018 None Full Exam - ENT Ears/Nose/Throat otoscopic exam Left external auditory canal: tender 03/16/2018 None Full Exam - ENT Ears/Nose/Throat otoscopic exam Left external auditory canal: complete cerumen impaction 03/16/2018 None Full Exam - ENT Ears/Nose/Throat otoscopic exam Right external auditory canal: complete cerumen impaction 03/16/2018 None Full Exam - ENT Ears/Nose/Throat otoscopic exam Left tympanic membrane: erythematous 03/16/2018 noted after removal of cerumen Full Exam - ENT Ears/Nose/Throat otoscopic exam Right tympanic membrane: intact 03/16/2018 None Full Exam - ENT Ears/Nose/Throat otoscopic exam Right tympanic membrane: mobile 03/16/2018 noted after removal of cerumen Full Exam - ENT Respiratory inspection Overall: normal rate 03/16/2018 None Full Exam - ENT Respiratory inspection Overall: no retractions 03/16/2018 None Full Exam - ENT Musculoskeletal gait and station Overall: normal station 03/16/2018 None Full Exam - ENT Musculoskeletal gait and station Overall: normal gait 03/16/2018 None Full Exam - ENT Musculoskeletal spine, ribs and pelvis Overall: good posture 03/16/2018 None Full Exam - ENT Neurologic mood and affect Overall: normal affect 03/16/2018 None Full Exam - ENT Neurologic mood and affect Overall: normal mood 03/16/2018 None Full Exam - ENT Neurologic cranial nerves/coordination Overall: cranial nerves 2-12 grossly intact 03/16/2018 None Full Exam - General 1995 Constitutional general appearance Overall: well developed 04/24/2017 None Full Exam - General 1994 Constitutional general appearance Overall: in no acute distress 04/24/2017 None Full Exam - General 1994 Constitutional general appearance Overall: well nourished 04/24/2017 None Full Exam - General 1994 Eyes conjunctiva/eyelids Overall: conjunctiva clear 04/24/2017 None Full Exam - General 1994 Eyes conjunctiva/eyelids Overall: cornea clear 04/24/2017 None Full Exam - General 1994 Eyes conjunctiva/eyelids Overall: eyelids normal 04/24/2017 None Full Exam - General 1994 Ears/Nose/Throat lips/teeth/gingiva Overall: benign lips 04/24/2017 None Full Exam - General 1994 Ears/Nose/Throat oral cavity/pharynx/larynx Overall: oral mucosa clear 04/24/2017 None Full Exam - General 1994 Ears/Nose/Throat oral cavity/pharynx/larynx Overall: oropharyngeal mucosa clear 04/24/2017 None Full Exam - General 1994 Respiratory auscultation Overall: breath sounds clear bilaterally 04/24/2017 None Full Exam - General 1994 Respiratory respiratory effort/rhythm Overall: no retractions 04/24/2017 None Full Exam - General 1994 Respiratory respiratory effort/rhythm Overall: normal rate 04/24/2017 None Full Exam - General 1994 Cardiovascular auscultation of heart Overall: normal heart sounds 04/24/2017 None Full Exam - General 1994 Cardiovascular auscultation of heart Overall: regular rate 04/24/2017 None Full Exam - General 1994 Abdomen abdominal exam Overall: no tenderness 04/24/2017 None Full Exam - General 1994 Abdomen abdominal exam Overall: normal bowel sounds 04/24/2017 None Full Exam - General 1994 Abdomen abdominal exam Upper quadrant: dull pain 04/24/2017 None Full Exam - General 1994 Abdomen abdominal exam Upper quadrant: tender to palpation 04/24/2017 None Full Exam - General 1994 Abdomen abdominal exam Upper quadrant: no guarding 04/24/2017 None Full Exam - General 1994 Abdomen abdominal exam Upper quadrant: no rebound tenderness 04/24/2017 None Full Exam - General 1994 Abdomen abdominal exam Upper quadrant: soft 04/24/2017 None Full Exam - General 1994 Musculoskeletal gait and station Overall: normal gait 04/24/2017 None Full Exam - General 1994 Musculoskeletal gait and station Overall: normal station 04/24/2017 None Full Exam - General 1994 Musculoskeletal head and neck Overall: head atraumatic 04/24/2017 None Full Exam - General 1994 Musculoskeletal spine, ribs and pelvis Spine: tender @ lumbar spine 04/24/2017 None Full Exam - General 1994 Neurologic cranial nerves Overall: crainial nerves 2 - 12 grossly intact 04/24/2017 None Full Exam - General 1994 Psychiatric orientation/consciousness Overall: oriented to person, place and time 04/24/2017 None Full Exam - General 1994 Psychiatric mood and affect Overall: normal mood and affect 04/24/2017 None Full Exam - General 1994 Psychiatric appearance Overall: well-groomed, good eye contact 04/24/2017 None Full Exam - ENT Constitutional general appearance Overall: well nourished 02/02/2017 None Full Exam - ENT Constitutional general appearance Overall: well developed 02/02/2017 None Full Exam - ENT Constitutional general appearance Overall: in no acute distress 02/02/2017 None Full Exam - ENT Ears/Nose/Throat otoscopic exam Overall: external auditory canals normal 02/02/2017 None Full Exam - ENT Ears/Nose/Throat otoscopic exam Left tympanic membrane: air-fluid level 02/02/2017 None Full Exam - ENT Ears/Nose/Throat otoscopic exam Right tympanic membrane: air-fluid level 02/02/2017 None Full Exam - ENT Ears/Nose/Throat lips/teeth/gingiva Overall: benign lips 02/02/2017 None Full Exam - ENT Ears/Nose/Throat oropharynx Overall: oral mucosa clear 02/02/2017 None Full Exam - ENT Ears/Nose/Throat oropharynx Posterior Pharynx: clear post nasal drainage 02/02/2017 None Full Exam - ENT Ears/Nose/Throat oropharynx Posterior Pharynx: erythema 02/02/2017 None Full Exam - ENT Respiratory inspection Overall: no retractions 02/02/2017 None Full Exam - ENT Respiratory inspection Overall: normal rate 02/02/2017 None Full Exam - ENT Respiratory auscultation Overall: breath sounds clear bilaterally 02/02/2017 None Full Exam - ENT Cardiovascular auscultation of heart Rate: normal rate 02/02/2017 None Full Exam - ENT Cardiovascular auscultation of heart Rhythm: regular rhythm 02/02/2017 None Full Exam - ENT Lymphatic palpation of lymph nodes Overall: anterior cervical chain benign 02/02/2017 None Full Exam - ENT Lymphatic palpation of lymph nodes Overall: posterior cervical chain benign 02/02/2017 None Full Exam - ENT Neurologic mood and affect Overall: normal mood 02/02/2017 None Full Exam - ENT Neurologic mood and affect Overall: normal affect 02/02/2017 None Full Exam - ENT Neurologic orientation Overall: oriented to person, place and time 02/02/2017 None Full Exam - ENT Constitutional general appearance Overall: well nourished 05/13/2016 None Full Exam - ENT Constitutional general appearance Overall: well developed 05/13/2016 None Full Exam - ENT Constitutional general appearance Overall: in no acute distress 05/13/2016 None Full Exam - ENT Ears/Nose/Throat otoscopic exam Overall: external auditory canals normal 05/13/2016 None Full Exam - ENT Ears/Nose/Throat otoscopic exam Left tympanic membrane: air-fluid level 05/13/2016 None Full Exam - ENT Ears/Nose/Throat otoscopic exam Right tympanic membrane: air-fluid level 05/13/2016 None Full Exam - ENT Ears/Nose/Throat lips/teeth/gingiva Overall: benign lips 05/13/2016 None Full Exam - ENT Ears/Nose/Throat oropharynx Overall: oral mucosa clear 05/13/2016 None Full Exam - ENT Ears/Nose/Throat oropharynx Posterior Pharynx: clear post nasal drainage 05/13/2016 None Full Exam - ENT Ears/Nose/Throat oropharynx Posterior Pharynx: erythema 05/13/2016 None Full Exam - ENT Respiratory inspection Overall: no retractions 05/13/2016 None Full Exam - ENT Respiratory inspection Overall: normal rate 05/13/2016 None Full Exam - ENT Respiratory auscultation Overall: breath sounds clear bilaterally 05/13/2016 None Full Exam - ENT Cardiovascular auscultation of heart Rate: normal rate 05/13/2016 None Full Exam - ENT Cardiovascular auscultation of heart Rhythm: regular rhythm 05/13/2016 None Full Exam - ENT Lymphatic palpation of lymph nodes Overall: anterior cervical chain benign 05/13/2016 None Full Exam - ENT Lymphatic palpation of lymph nodes Overall: posterior cervical chain benign 05/13/2016 None Full Exam - ENT Neurologic mood and affect Overall: normal mood 05/13/2016 None Full Exam - ENT Neurologic mood and affect Overall: normal affect 05/13/2016 None Full Exam - ENT Neurologic orientation Overall: oriented to person, place and time 05/13/2016 None Full Exam - ENT Face and Head palpation Right maxillary sinus: tender 05/13/2016 None Full Exam - ENT Face and Head palpation Left maxillary sinus: tender 05/13/2016 None Full Exam - General 1994 Constitutional general appearance Overall: well developed 10/11/2015 None Full Exam - General 1994 Constitutional general appearance Overall: in no acute distress 10/11/2015 None Full Exam - General 1994 Constitutional general appearance Overall: well nourished 10/11/2015 None Full Exam - General 1994 Eyes conjunctiva/eyelids Overall: conjunctiva clear 10/11/2015 None Full Exam - General 1994 Eyes conjunctiva/eyelids Overall: cornea clear 10/11/2015 None Full Exam - General 1994 Eyes conjunctiva/eyelids Overall: eyelids normal 10/11/2015 None Full Exam - General 1994 Ears/Nose/Throat lips/teeth/gingiva Overall: benign lips 10/11/2015 None Full Exam - General 1994 Respiratory respiratory effort/rhythm Overall: no retractions 10/11/2015 None Full Exam - General 1994 Respiratory respiratory effort/rhythm Overall: normal rate 10/11/2015 None Full Exam - General 1994 Cardiovascular extremities Overall: no clubbing 10/11/2015 None Full Exam - General 1994 Integument inspection of skin Overall: no rash, lesions 10/11/2015 None Full Exam - General 1994 Neurologic cranial nerves Overall: crainial nerves 2 - 12 grossly intact 10/11/2015 None Full Exam - General 1994 Psychiatric orientation/consciousness Overall: oriented to person, place and time 10/11/2015 None Full Exam - General 1994 Psychiatric mood and affect Overall: normal mood and affect 10/11/2015 None Full Exam - General 1994 Psychiatric appearance Overall: well-groomed, good eye contact 10/11/2015 None Full Exam - General 1994 Musculoskeletal lower extremity Inspection - lower leg: swelling 10/11/2015 None Full Exam - General 1994 Constitutional general appearance Overall: well developed 09/27/2015 None Full Exam - General 1994 Constitutional general appearance Overall: in no acute distress 09/27/2015 None Full Exam - General 1994 Constitutional general appearance Overall: well nourished 09/27/2015 None Full Exam - General 1994 Eyes conjunctiva/eyelids Overall: conjunctiva clear 09/27/2015 None Full Exam - General 1994 Eyes conjunctiva/eyelids Overall: cornea clear 09/27/2015 None Full Exam - General 1994 Eyes conjunctiva/eyelids Overall: eyelids normal 09/27/2015 None Full Exam - General 1994 Respiratory respiratory effort/rhythm Overall: no retractions 09/27/2015 None Full Exam - General 1994 Respiratory respiratory effort/rhythm Overall: normal rate 09/27/2015 None Full Exam - General 1994 Musculoskeletal gait and station Overall: normal gait 09/27/2015 None Full Exam - General 1994 Musculoskeletal gait and station Overall: normal station 09/27/2015 None Full Exam - General 1994 Musculoskeletal head and neck Overall: head atraumatic 09/27/2015 None Full Exam - General 1994 Integument inspection of skin Overall: no rash, lesions 09/27/2015 None Full Exam - General 1994 Neurologic cranial nerves Overall: crainial nerves 2 - 12 grossly intact 09/27/2015 None Full Exam - General 1994 Psychiatric orientation/consciousness Overall: oriented to person, place and time 09/27/2015 None Full Exam - General 1994 Ears/Nose/Throat lips/teeth/gingiva Overall: benign lips 09/27/2015 None Full Exam - General 1994 Cardiovascular extremities Overall: no clubbing 09/27/2015 None Full Exam - General 1994 Psychiatric mood and affect Overall: normal mood and affect 09/27/2015 None Full Exam - General 1994 Psychiatric appearance Overall: well-groomed, good eye contact 09/27/2015 None Full Exam - General 1994 Constitutional general appearance Overall: well developed 09/21/2015 None Full Exam - General 1994 Constitutional general appearance Overall: in no acute distress 09/21/2015 None Full Exam - General 1994 Constitutional general appearance Overall: well nourished 09/21/2015 None Full Exam - General 1994 Eyes conjunctiva/eyelids Overall: conjunctiva clear 09/21/2015 None Full Exam - General 1994 Eyes conjunctiva/eyelids Overall: cornea clear 09/21/2015 None Full Exam - General 1994 Eyes conjunctiva/eyelids Overall: eyelids normal 09/21/2015 None Full Exam - General 1994 Ears/Nose/Throat lips/teeth/gingiva Overall: benign lips 09/21/2015 None Full Exam - General 1994 Respiratory respiratory effort/rhythm Overall: no retractions 09/21/2015 None Full Exam - General 1994 Respiratory respiratory effort/rhythm Overall: normal rate 09/21/2015 None Full Exam - General 1994 Musculoskeletal gait and station Overall: normal gait 09/21/2015 None Full Exam - General 1994 Musculoskeletal gait and station Overall: normal station 09/21/2015 None Full Exam - General 1994 Musculoskeletal head and neck Overall: head atraumatic 09/21/2015 None Full Exam - General 1994 Integument inspection of skin Overall: no rash, lesions 09/21/2015 None Full Exam - General 1994 Neurologic cranial nerves Overall: crainial nerves 2 - 12 grossly intact 09/21/2015 None Full Exam - General 1994 Psychiatric orientation/consciousness Overall: oriented to person, place and time 09/21/2015 None Full Exam - General 1994 Psychiatric mood and affect Overall: normal mood and affect 09/21/2015 None Full Exam - General 1994 Psychiatric appearance Overall: well-groomed, good eye contact 09/21/2015 None Full Exam - General 1994 Ears/Nose/Throat oral cavity/pharynx/larynx Overall: oral mucosa clear 09/21/2015 None Full Exam - General 1994 Abdomen abdominal exam Overall: normal bowel sounds 09/21/2015 None Full Exam - General 1994 Abdomen abdominal exam Upper quadrant: non-tender to palpation 09/21/2015 None Full Exam - General 1994 Abdomen abdominal exam Upper quadrant: no guarding 09/21/2015 None Full Exam - General 1994 Abdomen abdominal exam Upper quadrant: no rebound tenderness 09/21/2015 None Full Exam - General 1994 Abdomen abdominal exam Upper quadrant: no mass lesions 09/21/2015 None Full Exam - General 1994 Abdomen abdominal exam Upper quadrant: soft 09/21/2015 None Full Exam - General 1994 Abdomen abdominal exam Lower quadrant: non-tender to palpation 09/21/2015 None Full Exam - General 1994 Abdomen abdominal exam Lower quadrant: no guarding 09/21/2015 None Full Exam - General 1994 Abdomen abdominal exam Lower quadrant: no rebound tenderness 09/21/2015 None Full Exam - General 1994 Abdomen abdominal exam Lower quadrant: no mass lesions 09/21/2015 None Full Exam - General 1994 Abdomen abdominal exam Lower quadrant: soft 09/21/2015 None Full Exam - General 1994 Psychiatric speech Overall: normal quality, no aphasia 09/21/2015 None Full Exam - General 1994 Psychiatric speech Overall: normal quality, quantity, rate 09/21/2015 None Full Exam - General 1994 Constitutional general appearance Overall: well developed 05/29/2015 None Full Exam - General 1994 Constitutional general appearance Overall: in no acute distress 05/29/2015 None Full Exam - General 1994 Constitutional general appearance Overall: well nourished 05/29/2015 None Full Exam - General 1994 Eyes conjunctiva/eyelids Overall: conjunctiva clear 05/29/2015 None Full Exam - General 1994 Eyes conjunctiva/eyelids Overall: cornea clear 05/29/2015 None Full Exam - General 1994 Eyes conjunctiva/eyelids Overall: eyelids normal 05/29/2015 None Full Exam - General 1994 Eyes pupils and irises Overall: pupils equal, round, reactive to light and accomodation 05/29/2015 None Full Exam - General 1994 Ears/Nose/Throat otoscopic exam Overall: external auditory canals clear 05/29/2015 None Full Exam - General 1994 Ears/Nose/Throat otoscopic exam Overall: tympanic membranes clear 05/29/2015 None Full Exam - General 1994 Ears/Nose/Throat oral cavity/pharynx/larynx Overall: oral mucosa clear 05/29/2015 None Full Exam - General 1994 Ears/Nose/Throat oral cavity/pharynx/larynx Overall: oropharyngeal mucosa clear 05/29/2015 None Full Exam - General 1994 Ears/Nose/Throat oral cavity/pharynx/larynx Overall: no masses 05/29/2015 None Full Exam - General 1994 Respiratory auscultation Overall: breath sounds clear bilaterally 05/29/2015 None Full Exam - General 1994 Respiratory respiratory effort/rhythm Overall: no retractions 05/29/2015 None Full Exam - General 1994 Respiratory respiratory effort/rhythm Overall: normal rate 05/29/2015 None Full Exam - General 1994 Cardiovascular extremities Overall: no clubbing 05/29/2015 None Full Exam - General 1994 Cardiovascular auscultation of heart Overall: regular rate 05/29/2015 None Full Exam - General 1994 Cardiovascular auscultation of heart Overall: normal heart sounds 05/29/2015 None Full Exam - General 1994 Cardiovascular auscultation of heart Overall: no murmurs 05/29/2015 None Full Exam - General 1994 Abdomen abdominal exam Overall: no tenderness 05/29/2015 None Full Exam - General 1994 Abdomen abdominal exam Overall: normal bowel sounds 05/29/2015 None Full Exam - General 1994 Lymphatic neck nodes Overall: anterior cervical chain benign 05/29/2015 None Full Exam - General 1994 Lymphatic neck nodes Overall: posterior cervical chain benign 05/29/2015 None Full Exam - General 1994 Musculoskeletal gait and station Overall: normal gait 05/29/2015 None Full Exam - General 1994 Musculoskeletal gait and station Overall: normal station 05/29/2015 None Full Exam - General 1994 Musculoskeletal head and neck Overall: head atraumatic 05/29/2015 None Full Exam - General 1994 Musculoskeletal head and neck Overall: cervical spine benign 05/29/2015 None Full Exam - General 1994 Integument inspection of skin Overall: no rash, lesions 05/29/2015 None Full Exam - General 1994 Neurologic deep tendon reflexes Overall: deep tendon reflexes intact 05/29/2015 None Full Exam - General 1994 Neurologic cranial nerves Overall: crainial nerves 2 - 12 grossly intact 05/29/2015 None Full Exam - General 1994 Psychiatric orientation/consciousness Overall: oriented to person, place and time 05/29/2015 None Full Exam - General 1994 Constitutional general appearance Overall: well developed 04/30/2015 None Full Exam - General 1994 Constitutional general appearance Overall: in no acute distress 04/30/2015 None Full Exam - General 1994 Constitutional general appearance Overall: well nourished 04/30/2015 None Full Exam - General 1994 Psychiatric orientation/consciousness Overall: oriented to person, place and time 04/30/2015 None Full Exam - General 1994 Neurologic deep tendon reflexes Overall: deep tendon reflexes intact 04/30/2015 None Full Exam - General 1994 Neurologic cranial nerves Overall: crainial nerves 2 - 12 grossly intact 04/30/2015 None Full Exam - General 1994 Integument inspection of skin Overall: no rash, lesions 04/30/2015 None Full Exam - General 1994 Musculoskeletal gait and station Overall: normal station 04/30/2015 None Full Exam - General 1994 Musculoskeletal gait and station Overall: normal gait 04/30/2015 None Full Exam - General 1994 Musculoskeletal head and neck Overall: cervical spine benign 04/30/2015 None Full Exam - General 1994 Musculoskeletal head and neck Overall: head atraumatic 04/30/2015 None Full Exam - General 1994 Lymphatic neck nodes Overall: anterior cervical chain benign 04/30/2015 None Full Exam - General 1994 Lymphatic neck nodes Overall: posterior cervical chain benign 04/30/2015 None Full Exam - General 1994 Abdomen abdominal exam Overall: no tenderness 04/30/2015 None Full Exam - General 1994 Abdomen abdominal exam Overall: normal bowel sounds 04/30/2015 None Full Exam - General 1994 Cardiovascular auscultation of heart Overall: regular rate 04/30/2015 None Full Exam - General 1994 Cardiovascular auscultation of heart Overall: normal heart sounds 04/30/2015 None Full Exam - General 1994 Cardiovascular auscultation of heart Overall: no murmurs 04/30/2015 None Full Exam - General 1994 Cardiovascular extremities Overall: no clubbing 04/30/2015 None Full Exam - General 1994 Respiratory auscultation Overall: breath sounds clear bilaterally 04/30/2015 None Full Exam - General 1994 Respiratory respiratory effort/rhythm Overall: normal rate 04/30/2015 None Full Exam - General 1994 Respiratory respiratory effort/rhythm Overall: no retractions 04/30/2015 None Full Exam - General 1994 Ears/Nose/Throat otoscopic exam Overall: tympanic membranes clear 04/30/2015 None Full Exam - General 1994 Ears/Nose/Throat otoscopic exam Overall: external auditory canals clear 04/30/2015 None Full Exam - General 1994 Ears/Nose/Throat oral cavity/pharynx/larynx Overall: oropharyngeal mucosa clear 04/30/2015 None Full Exam - General 1994 Ears/Nose/Throat oral cavity/pharynx/larynx Overall: no masses 04/30/2015 None Full Exam - General 1994 Ears/Nose/Throat oral cavity/pharynx/larynx Overall: oral mucosa clear 04/30/2015 None Full Exam - General 1994 Eyes conjunctiva/eyelids Overall: conjunctiva clear 04/30/2015 None Full Exam - General 1994 Eyes conjunctiva/eyelids Overall: eyelids normal 04/30/2015 None Full Exam - General 1994 Eyes conjunctiva/eyelids Overall: cornea clear 04/30/2015 None Full Exam - General 1994 Eyes pupils and irises Overall: pupils equal, round, reactive to light and accomodation 04/30/2015 None Procedures Procedure Codes Date URINALYSIS NONAUTO W/O SCOPE CPT-4: 04469 03/04/2017 TRIAMCINOLONE ACET INJ NOS CPT-4: J3301 02/02/2017 TRIAMCINOLONE ACET INJ NOS CPT-4: J3301 05/13/2016 Vital Signs Date Vital 05/19/2018 Blood Pressure 1: 110/68 Code: 8480-6 BMI: 26.3 Code: 37550-0 Heart Rate 1: 90 bpm Height: 5'5" SpO2: 98% Weight: 158 lbs 05/06/2018 Blood Pressure 1: 132/74 Code: 8480-6 BMI: 26.6 Code: 11959-1 Heart Rate 1: 77 bpm Height: 5'5" SpO2: 96% Weight: 160 lbs 2018 Blood Pressure 1: 145/80 Code: 8480-6 BMI: 26.6 Code: 16881-8 Heart Rate 1: 90 bpm Height: 5'5" SpO2: 99% Weight: 160 lbs 03/16/2018 Blood Pressure 1: 114/80 Code: 8480-6 BMI: 26.5 Code: 08253-7 Heart Rate 1: 82 bpm Height: 5'5" SpO2: 98% Weight: 159 lbs 04/24/2017 Blood Pressure 1: 130/76 Code: 8480-6 BMI: 26.0 Code: 90590-5 Heart Rate 1: 75 bpm Height: 5'5" SpO2: 99% Weight: 156 lbs 02/02/2017 Blood Pressure 1: 128/74 Code: 8480-6 BMI: 26.0 Code: 36503-2 Heart Rate 1: 76 bpm Height: 5'5" SpO2: 98% Temperature: 37.6 (C) / 99.6 (F) Weight: 156 lbs 05/13/2016 Blood Pressure 1: 138/80 Code: 8480-6 BMI: 26.0 Code: 59137-9 Heart Rate 1: 83 bpm Height: 5'5" SpO2: 97% Temperature: 37.1 (C) / 98.7 (F) Weight: 156 lbs 10/11/2015 Blood Pressure 1: 126/72 Code: 8480-6 Heart Rate 1: 80 bpm Height: 5'5" SpO2: 99% Weight: 09/27/2015 Blood Pressure 1: 126/68 Code: 8480-6 BMI: 26.0 Code: 15601-8 Heart Rate 1: 70 bpm Height: 5'5" SpO2: 99% Weight: 156 lbs 09/21/2015 Blood Pressure 1: 138/72 Code: 8480-6 BMI: 26.0 Code: 85888-7 Heart Rate 1: 81 bpm Height: 5'5" SpO2: 98% Weight: 156 lbs 05/29/2015 Blood Pressure 1: 126/62 Code: 8480-6 BMI: 26.1 Code: 30379-4 Heart Rate 1: 83 bpm Height: 5'5" SpO2: 96% Weight: 157 lbs 04/30/2015 Blood Pressure 1: 110/70 Code: 8480-6 BMI: 26.1 Code: 78772-7 Heart Rate 1: 80 bpm Height: 5'5" SpO2: 99% Weight: 157 lbs Functional Status No Functional Status data History of Present Illness Symptom Name Status Result Effective Date Notes Location on the left 05/19/2018 None Quality acute 05/19/2018 None Onset of Symptom 3 days ago 05/19/2018 None Pertinent Findings decreased range of motion 05/19/2018 None Pertinent Findings pain with movement 05/19/2018 None Pertinent Findings redness 05/19/2018 None Location lumbar-sacral spine 05/19/2018 None Quality intermittent 05/19/2018 None Onset of Symptom 3 days ago 05/19/2018 None Limitation on Activities moderately limits activities 05/19/2018 None Pertinent Findings weakness 05/19/2018 None Onset and Resolution resolved 05/19/2018 None Onset and Resolution resolved 05/19/2018 None Location on the left 05/06/2018 None Quality acute 05/06/2018 None Onset of Symptom 3 days ago 05/06/2018 None Pertinent Findings decreased range of motion 05/06/2018 None Pertinent Findings pain with movement 05/06/2018 None Pertinent Findings redness 05/06/2018 None Location lumbar-sacral spine 05/06/2018 None Quality intermittent 05/06/2018 None Onset and Resolution Denies acute 05/06/2018 None Limitation on Activities moderately limits activities 05/06/2018 None Pertinent Findings weakness 05/06/2018 None Onset of Symptom 3 days ago 05/06/2018 None Location on the left 2018 None Quality sharp 2018 None Quality stabbing 2018 None Quality intermittent 2018 None Onset and Resolution sudden in onset 2018 None Onset of Symptom 1 days ago 2018 None Location on the left 2018 None Quality sharp pain 2018 None Onset and Resolution sudden in onset 2018 None Onset of Symptom 1 days ago 2018 None Frequency of Episodes daily 2018 None Location both ears 03/16/2018 None Quality acute 03/16/2018 None Onset and Resolution sudden in onset 03/16/2018 None Triggers no known triggers 03/16/2018 None abdominal pain Location in the LUQ 04/24/2017 None abdominal pain Radiating the flank 04/24/2017 None abdominal pain Quality aching 04/24/2017 None abdominal pain Quality constant 04/24/2017 None abdominal pain Quality cramping 04/24/2017 None abdominal pain Onset and Resolution sudden in onset 04/24/2017 None abdominal pain Onset of Symptom 1 days ago 04/24/2017 None abdominal pain Pertinent Findings back pain 04/24/2017 None sinus congestion Location frontal sinuses 02/02/2017 None sinus congestion Quality fullness 02/02/2017 None sinus congestion Quality pressure 02/02/2017 None sinus congestion Onset and Resolution sudden in onset 02/02/2017 None sinus congestion Onset of Symptom 3 days ago 02/02/2017 None sinus congestion Frequency of Episodes daily 02/02/2017 None sinus congestion Pertinent Findings cough 02/02/2017 None sinus congestion Pertinent Findings fever 02/02/2017 None sinus congestion Pertinent Findings hoarseness 02/02/2017 None sinus congestion Pertinent Findings decreased energy level 02/02/2017 None sore throat Location diffusely 02/02/2017 None sore throat Quality aching 02/02/2017 None sore throat Quality constant 02/02/2017 None sore throat Quality scratchy 02/02/2017 None sore throat Onset and Resolution sudden in onset 02/02/2017 None sore throat Onset of Symptom 3 days ago 02/02/2017 None sore throat Frequency of Episodes daily 02/02/2017 None earache Location both ears 02/02/2017 None earache Onset and Resolution sudden in onset 02/02/2017 None sinus congestion Location on both sides 05/13/2016 None sinus congestion Quality fullness 05/13/2016 None sinus congestion Quality pressure 05/13/2016 None sinus congestion Onset and Resolution sudden in onset 05/13/2016 None sinus congestion Onset of Symptom 1 weeks ago 05/13/2016 None sinus congestion Frequency of Episodes daily 05/13/2016 None sinus congestion Pertinent Findings cough 05/13/2016 None sinus congestion Pertinent Findings hoarseness 05/13/2016 None sore throat Location on both sides 05/13/2016 None sore throat Quality aching 05/13/2016 None sore throat Quality constant 05/13/2016 None sore throat Quality scratchy 05/13/2016 None sore throat Onset and Resolution sudden in onset 05/13/2016 None sore throat Onset of Symptom 1 weeks ago 05/13/2016 None sore throat Frequency of Episodes daily 05/13/2016 None cough Quality constant 05/13/2016 None cough Quality hacking 05/13/2016 None cough Onset and Resolution sudden in onset 05/13/2016 None cough Pertinent Findings chest discomfort 05/13/2016 None lower leg pain Location on the right 10/11/2015 None lower leg pain Quality cramping 10/11/2015 None lower leg pain Quality numbness 10/11/2015 None lower leg pain Quality sharp pain 10/11/2015 None lower leg pain Quality constant 10/11/2015 None lower leg pain Onset and Resolution sudden in onset 10/11/2015 None lower leg pain Onset of Symptom 3 days ago 10/11/2015 None lower leg pain Mechanism of injury low energy 10/11/2015 None flank pain Location on the left 09/27/2015 None flank pain Radiating the back 09/27/2015 None flank pain Quality aching 09/27/2015 None flank pain Quality constant 09/27/2015 None flank pain Quality cramping 09/27/2015 None flank pain Onset and Resolution sudden in onset 09/27/2015 None flank pain Onset of Symptom 1 days ago 09/27/2015 None flank pain Location on the left 09/21/2015 None flank pain Radiating the back 09/21/2015 None flank pain Quality cramping 09/21/2015 None flank pain Quality aching 09/21/2015 None flank pain Quality constant 09/21/2015 None flank pain Onset and Resolution sudden in onset 09/21/2015 None flank pain Onset of Symptom 1 days ago 09/21/2015 None diarrhea Onset and Resolution ongoing 05/29/2015 None diarrhea Onset of Symptom _ years ago 05/29/2015 None diarrhea Timing of Episodes after meals 05/29/2015 None diarrhea Pertinent Findings Denies cough 05/29/2015 None diarrhea Pertinent Findings Denies fever 05/29/2015 None diarrhea Quality improving 05/29/2015 None diarrhea Limitation on Activities does not limit activities 05/29/2015 None diarrhea Frequency of Episodes decreasing 05/29/2015 None diarrhea Triggers meals 05/29/2015 None diarrhea Alleviating Factors medication 05/29/[facility] [place] Quality increased amount 04/30/2015 None diarrhea Onset and Resolution ongoing 04/30/2015 None diarrhea Onset of Symptom _ years ago 04/30/2015 None diarrhea Frequency of Episodes daily 04/30/2015 3 per day usually diarrhea Timing of Episodes after meals 04/30/2015 None diarrhea Pertinent Findings Denies cough 04/30/2015 None diarrhea Pertinent Findings Denies fever 04/30/2015 None Advance Directives No Advance Directive data Encounters Encounter Performer Location Codes Date ([id number]) 03076 EST. PATIENT, LEVEL III Diagnosis: Polycystic ovarian syndrome[ICD10: E28.2] [facility] CPT-4: 21365 05/19/2018 ([id number]) 57235 EST. PATIENT, LEVEL III Diagnosis: Phlebitis and thrombophlebitis of superficial vessels of left lower extremity[ICD10: I80.02] [facility], [facility] CPT-4: 43077 05/06/2018 69808 EST. PATIENT, LEVEL III Diagnosis: Pain in thoracic spine[ICD10: M54.6] Merline Leon MD, [facility] CPT- 4: 82381 2018 92226 EST. PATIENT, LEVEL III Diagnosis: Impacted cerumen, bilateral[ICD10: H61.23] Diagnosis: Acute serous otitis media, left ear[ICD10: H65.02] [facility], [facility] CPT-4: 47268 03/16/2018 08114 EST. PATIENT, LEVEL IV Diagnosis: Left upper quadrant pain[ICD10: R10.12] [facility]line [facility], [facility] CPT-4: 49041 04/24/2017 33570 EST. PATIENT, LEVEL III Diagnosis: Acute laryngopharyngitis[ICD10: J06.0] Diagnosis: Other allergic rhinitis[ICD10: J30.89] [facility]line [facility], [facility] CPT- 4: 88101 02/02/2017 60741 EST. PATIENT, LEVEL IV Diagnosis: Acute laryngopharyngitis[ICD10: J06.0] Diagnosis: Other acute sinusitis[ICD10: J01.80] Diagnosis: Other allergic rhinitis[ICD10: J30.89] [facility]line [facility], [facility] CPT- 4: 76711 05/13/2016 71809 EST. PATIENT, LEVEL IV Diagnosis: Strain of other muscle(s) and tendon(s) at lower leg level, right leg, initial encounter[ICD10: S86.811A] [facility]line [facility], [facility] CPT-4: 36815 10/11/2015 86143 EST. PATIENT, LEVEL III Diagnosis: Dysuria[ICD10: R30.0] Diagnosis: Right upper quadrant pain[ICD10: R10.11] Merline [facility], [facility] CPT-4: 11680 09/27/2015 54140 EST. PATIENT, LEVEL III Diagnosis: Dysuria[ICD10: R30.0] [facility]line [facility], [facility] CPT-4: 32640 09/21/2015 ([id number]) 15595 EST. 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] Diagnosis: Noninfective gastroenteritis and colitis, unspecified[ICD10: K52.9] [facility] CPT-4: 28568 05/29/2015 ([id number]) OFFICE VISIT, NEW - LEVEL 3 Diagnosis: Nontoxic multinodular goiter[ICD10: E04.2] Diagnosis: Noninfective gastroenteritis and colitis, unspecified[ICD10: K52.9] Ioana Leon MD, [facility] CPT-4: 76078 04/30/2015 Plan of Care Planned Activity Notes Codes Status Date Visit Plan: Thrombophlebitis - resolved - pt to continue with the aspirin 325mg daily x 1 month - her control was stopped. PCOS - pt to alert us if her symptoms of PCOS worsen off of the control. 05/19/2018 Patient Education: Patient Medication Summary Completed 05/19/2018 Visit Plan: Thrombophlebitis - - pt was sent for deep vein ultrasound - the patient was found to have a superficial thrombosis, no deep vein thrombosis found on the examination. PT is to take keflex 500mg tid x 10 days, Aspirin 325mg bid x 2 weeks then daily x 1 month. RTC in 2 weeks 05/06/2018 [phone] [facility] [place] (15 min) Moderate 05/06/2018 Patient Education: Patient Medication Summary Completed 05/06/2018 Care Plan: VASCULAR STUDY Pending 05/06/2018 Visit Plan: Left flank pain - will send RX - if no improvement will check KUB if no improvement - The pt is to use prn antiinflammatories to manage acute pain. The patient is to call the office if the pain is worsening or does not improve. 2018 App[facility]ment[phone] [facility] [place] (30 min) Complex 2018 Patient Education: Patient Medication Summary Completed 2018 Visit Plan: Otitis Media - discussed the diagnosis with the patient, script sent electronically to the pharmacy for treatment of the infection. The disease course was discussed and the need to notify the clinic if symptoms do not improve or if they acutely worsen. Cerumen Impaction - The impacted cerumen was removed with the use of the ear currette. The patient tolerated the procedure without incident and had improvement in hearing. The wax was removed by the practitioner due to the wax being more complicated to remove, and staff was needed to assist the removal of the wax by holding the ear, and keeping patient stabilized during the removal process. 03/16/2018 Appointment: Merline Matta WPtel: [phone] [facility] [place] (15 min) Moderate 03/16/2018 Patient Education: Patient Medication Summary Completed 03/16/2018 Care Plan: X-RAY EXAM OF ABDOMEN LOINC : 00323-9 Pending 04/26/2017 Visit Plan: Left flank pain - history of kidney stones - UA negative - will order x-ray and treat or refer as indicated - pt is to notify clinic with any changes, questions, or concerns. 04/24/2017 Visit Plan: Left flank pain - history of kidney stones - UA negative - will order x-ray and treat or refer as indicated - pt is to notify clinic with any changes, questions, or concerns. 04/24/2017 Appointment: [phone] [facility] [place] (15 min) Moderate 04/24/2017 Patient Education: Patient Medication Summary Completed 04/24/2017 Appointment: Lab Draw 03/04/2017 Patient Education: Patient Medication Summary Completed 03/04/2017 Visit Plan: URI - Pt advised to increase fluids, vitamin C. Discussed natural and expected course of this diagnosis and need to alert me if symptoms do not follow expected course, or if any worse. RX sent to patient's pharmacy. Allergies - chronic - recommended pt to use allergy medication as prescribed. Pt has been counseled as to the appropriate use of the medication. Pt to call if allergy symptoms are not controlled with the medication. If using nasal spray, instructions as follows: Nasal spray- use twice daily, one spray per nostril twice daily, after 30 minutes, rinse out nose with saline spray.. Use opposite hand per nostril to spray in the nasal steroid allergy spray. 02/02/2017 Visit Plan: URI - Pt advised to increase fluids, vitamin C. Discussed natural and expected course of this diagnosis and need to alert me if symptoms do not follow expected course, or if any worse. RX sent to patient's pharmacy. Allergies - chronic - recommended pt to use allergy medication as prescribed. Pt has been counseled as to the appropriate use of the medication. Pt to call if allergy symptoms are not controlled with the medication. If using nasal spray, instructions as follows: Nasal spray- use twice daily, one spray per nostril twice daily, after 30 minutes, rinse out nose with saline spray.. Use opposite hand per nostril to spray in the nasal steroid allergy spray. 02/02/2017 Appointment: Merline Matta WPtel: [address] [place], [place] [id number] (15 min) Moderate 02/02/2017 Patient Education: Patient Medication Summary Completed 02/02/2017 Visit Plan: URI - Pt advised to increase fluids, vitamin C. Discussed natural and expected course of this diagnosis and need to alert me if symptoms do not follow expected course, or if any worse. RX sent to patient's pharmacy. Sinusitis - Pt has acute infection - pain in face, maxillary region, Pt informed to use decongestant, RX given to patient, sinus rinses also recommended. Call if symptoms do not show improvement. Allergies - chronic - recommended pt to use allergy medication as prescribed. Pt has been counseled as to the appropriate use of the medication. Pt to call if allergy symptoms are not controlled with the medication. If using nasal spray, instructions as follows: Nasal spray- use twice daily, one spray per nostril twice daily, after 30 minutes, rinse out nose with saline spray.. Use opposite hand per nostril to spray in the nasal steroid allergy spray. 05/13/2016 Visit Plan: URI - Pt advised to increase fluids, vitamin C. Discussed natural and expected course of this diagnosis and need to alert me if symptoms do not follow expected course, or if any worse. RX sent to patient's pharmacy. Sinusitis - Pt has acute infection - pain in face, maxillary region, Pt informed to use decongestant, RX given to patient, sinus rinses also recommended. Call if symptoms do not show improvement. Allergies - chronic - recommended pt to use allergy medication as prescribed. Pt has been counseled as to the appropriate use of the medication. Pt to call if allergy symptoms are not controlled with the medication. If using nasal spray, instructions as follows: Nasal spray- use twice daily, one spray per nostril twice daily, after 30 minutes, rinse out nose with saline spray.. Use opposite hand per nostril to spray in the nasal steroid allergy spray. 05/13/2016 Appointment: Merline Matta WPtel: [facility] (15 min) Moderate 05/13/2016 Patient Education: Patient Medication Summary Completed 05/13/2016 Appointment: (30 min) Complex 11/20/2015 Visit Plan: Right calf pain - Pt states that she was stepping off her porch and felt a pop in her right calf. Pt states that she has pain with walking - there is some edema noted to the right lateral calf - Pt to use RICE - Rest, Ice, Compression, Elevation - pt to use crutches, and notify clinic if symptoms do not improve, if they worsen, or with any concerns. 10/11/2015 Appointment: Merline Matta WPtel: [facility] (30 min) Complex 10/11/2015 Patient Education: Patient Medication Summary Completed 10/11/2015 Visit Plan: Right flank pain - pt states that she feels like she still has a uti - will repeat UA C&S if indicated - will order KUB, will treat pending results. 09/27/2015 Appointment: Merline Matta WPtel: [facility] (30 min) Complex 09/27/2015 Patient Education: Patient Medication Summary Completed 09/27/2015 Patient Education: Obesity Completed 09/27/2015 Visit Plan: UTI - pt with positive urinalysis - culture sent if appropriate. Antibiotic electronically prescribed to pt's pharmacy of choice. Pt to call if symptoms do not improve. If symptoms do not improve will order KUB 09/21/2015 Patient Education: Patient Medication Summary Completed 09/21/2015 Patient Education: Obesity Completed 09/21/2015 Visit Plan: Thyroid xxkmvxs-gaqmtw-unsjxx ultrasound in 6 months Chronic diarrhea-significantly improved-continue questran 05/29/2015 Visit Plan: Thyroid tceeinr-wxgvaw-prwbox ultrasound in 6-12 months-minimal change Chronic diarrhea-significantly improved-continue questran 05/29/2015 Appointment: (30 min) Complex 05/29/2015 Patient Education: Patient Medication Summary Completed 05/29/2015 Patient Education: Obesity Completed 05/29/2015 Visit Plan: Multinodular goiter-follow up thyroid ultrasound- check labs Chronic diarrhea-post cholecystectomy-RX to start questran sent electronically and instructed patient on use-recommend low fat diet-follow up in 1 month 04/30/2015 Appointment: (S) New Patient 04/30/2015 Patient Education: Patient Medication Summary Completed 04/30/2015 Instructions Comment . Right flank pain - pt states that she feels like she still has a uti - will repeat UA C&S if indicated - will order KUB, will treat pending results. . URI - Pt advised to increase fluids, vitamin C. Discussed natural and expected course of this diagnosis and need to alert me if symptoms do not follow expected course, or if any worse. RX sent to patient's pharmacy. Sinusitis - Pt has acute infection - pain in face, maxillary region, Pt informed to use decongestant, RX given to patient, sinus rinses also recommended. Call if symptoms do not show improvement. Allergies - chronic - recommended pt to use allergy medication as prescribed. Pt has been counseled as to the appropriate use of the medication. Pt to call if allergy symptoms are not controlled with the medication. If using nasal spray, instructions as follows: Nasal spray- use twice daily, one spray per nostril twice daily, after 30 minutes, rinse out nose with saline spray.. Use opposite hand per nostril to spray in the nasal steroid allergy spray. . URI - Pt advised to increase fluids, vitamin C. Discussed natural and expected course of this diagnosis and need to alert me if symptoms do not follow expected course, or if any worse. RX sent to patient's pharmacy. Sinusitis - Pt has acute infection - pain in face, maxillary region, Pt informed to use decongestant, RX given to patient, sinus rinses also recommended. Call if symptoms do not show improvement. Allergies - chronic - recommended pt to use allergy medication as prescribed. Pt has been counseled as to the appropriate use of the medication. Pt to call if allergy symptoms are not controlled with the medication. If using nasal spray, instructions as follows: Nasal spray- use twice daily, one spray per nostril twice daily, after 30 minutes, rinse out nose with saline spray.. Use opposite hand per nostril to spray in the nasal steroid allergy spray. . Thrombophlebitis - resolved - pt to continue with the aspirin 325mg daily x 1 month - her control was stopped. PCOS - pt to alert us if her symptoms of PCOS worsen off of the control. . Thrombophlebitis - - pt was sent for deep vein ultrasound - the patient was found to have a superficial thrombosis, no deep vein thrombosis found on the examination. PT is to take keflex 500mg tid x 10 days, Aspirin 325mg bid x 2 weeks then daily x 1 month. RTC in 2 weeks . URI - Pt advised to increase fluids, vitamin C. Discussed natural and expected course of this diagnosis and need to alert me if symptoms do not follow expected course, or if any worse. RX sent to patient's pharmacy. Allergies - chronic - recommended pt to use allergy medication as prescribed. Pt has been counseled as to the appropriate use of the medication. Pt to call if allergy symptoms are not controlled with the medication. If using nasal spray, instructions as follows: Nasal spray- use twice daily, one spray per nostril twice daily, after 30 minutes, rinse out nose with saline spray.. Use opposite hand per nostril to spray in the nasal steroid allergy spray. . URI - Pt advised to increase fluids, vitamin C. Discussed natural and expected course of this diagnosis and need to alert me if symptoms do not follow expected course, or if any worse. RX sent to patient's pharmacy. Allergies - chronic - recommended pt to use allergy medication as prescribed. Pt has been counseled as to the appropriate use of the medication. Pt to call if allergy symptoms are not controlled with the medication. If using nasal spray, instructions as follows: Nasal spray- use twice daily, one spray per nostril twice daily, after 30 minutes, rinse out nose with saline spray.. Use opposite hand per nostril to spray in the nasal steroid allergy spray. Duexis sample . UTI - pt with positive urinalysis - culture sent if appropriate. Antibiotic electronically prescribed to pt's pharmacy of choice. Pt to call if symptoms do not improve. If symptoms do not improve will order KUB . Right calf pain - Pt states that she was stepping off her porch and felt a pop in her right calf. Pt states that she has pain with walking - there is some edema noted to the right lateral calf - Pt to use RICE - Rest, Ice, Compression, Elevation - pt to use crutches, and notify clinic if symptoms do not improve, if they worsen, or with any concerns. . Thyroid qvdlbxq-ihgtxv-htsopm ultrasound in 6 months Chronic diarrhea-significantly improved-continue questran . Thyroid qysthsr-zwvixe-pdchbh ultrasound in 6-12 months-minimal change Chronic diarrhea-significantly improved-continue questran . Left flank pain - will send RX - if no improvement will check KUB if no improvement - The pt is to use prn antiinflammatories to manage acute pain. The patient is to call the office if the pain is worsening or does not improve. Thyroid ultrasound . Multinodular goiter-follow up thyroid ultrasound-check labs Chronic diarrhea-post cholecystectomy-RX to start questran sent electronically and instructed patient on use-recommend low fat diet-follow up in 1 month . Otitis Media - discussed the diagnosis with the patient, script sent electronically to the pharmacy for treatment of the infection. The disease course was discussed and the need to notify the clinic if symptoms do not improve or if they acutely worsen. Cerumen Impaction - The impacted cerumen was removed with the use of the ear currette. The patient tolerated the procedure without incident and had improvement in hearing. The wax was removed by the practitioner due to the wax being more complicated to remove, and staff was needed to assist the removal of the wax by holding the ear, and keeping patient stabilized during the removal process. . Left flank pain - history of kidney stones - UA negative - will order x-ray and treat or refer as indicated - pt is to notify clinic with any changes, questions, or concerns. . Left flank pain - history of kidney stones - UA negative - will order x-ray and treat or refer as indicated - pt is to notify clinic with any changes, questions, or concerns.
--- NOTE | 2018-09-10 08:29 | Diagnostic Imaging Report ---
PROCEDURE: CT urinary tract, rule out kidney stone. TECHNIQUE: Multiple contiguous axial images were obtained through the abdomen and pelvis without the use of intravenous contrast. Auto Exposure Controls were utilized during the CT exam to meet ALARA standards for radiation dose reduction. INDICATION: Left-sided abdominal pain. No prior studies are available for comparison. The lung bases are clear. The liver is unremarkable. Gallbladder appears to be surgically absent. No biliary duct dilatation is seen. The pancreas and spleen are unremarkable. No adrenal mass is detected. The right kidney is unremarkable. Left kidney is enlarged. There is mild to moderate left-sided hydroureteronephrosis. This appears to be caused by a small distal left ureteric calculus just above the UVJ measuring approximately 3 mm. No bladder calculi are seen. Aorta is non-aneurysmal. Small and large bowel loops are normal caliber. Appendix is unremarkable. There is no ascites. Uterus is unremarkable. IMPRESSION: 3 mm distal left ureteric calculus producing moderate hydroureteronephrosis. No other significant abnormality is seen. Dictated by: Dictated on workstation # [id number]
--- OUTSIDE RECORDS SUMMARY | 2018-09-10 08:29 | XMS REPORT | CCD ---
Author Author [facility] Address [address] [place] [address] Phone Care Team Providers Care Director Of Strategic Sales Name Role Phone PP Unavailable CCM Unavailable Summary Purpose Interface Exchange Insurance Providers Payer name Policy type / Coverage type Covered constitution party ID Effective Begin Date Effective End Date Blue Cross [facility] Blue Cross/[facility] [id number] Unknown Unknown Family history Daughter Diagnosis Age At Onset Asthma Unknown Father Diagnosis Age At Onset Cancer Unknown Mother Diagnosis Age At Onset Hyperlipidemia Unknown Social History Social History Element Codes Description Effective Dates Marital status Unknown 04/30/2015 Number of children Unknown 3 04/30/[address]: 857091175 Never smoker 04/30/[address]: 097456372 Never drinks alcohol 04/30/2015 Allergies, Adverse Reactions, Alerts Substance Reaction Codes Entered Date Inactivated Date Status * NO KNOWN DRUG ALLERGIES Unknown 04/30/2015 No Inactive Date Active Past Medical History Illness Codes Condition Status Onset Date Resolved Date Phlebitis and thrombophlebitis of superficial vessels of [...] Problems Condition Codes Effective Dates Condition Status Phlebitis and thrombophlebitis of superficial vessels of [...] Fill Instructions cephalexin 500 mg tablet RxNorm: 844764 1 Capsule(s) PO TID 05/06/2018 05/15/2018 Active cyclobenzaprine 5 mg tablet RxNorm: 956561 1 Tablet(s) PO TID as needed muscle spasms 2018 05/08/2018 Inactive Augmentin 500 mg-125 mg tablet RxNorm: 558924 1 Tablet(s) PO TID 03/16/2018 03/22/2018 Inactive take with probiotic BID prednisone 20 mg tablet RxNorm: 464334 2 Tablet(s) PO daily to equil 40mg 02/17/2017 02/21/2017 Inactive prednisone 20 mg tablet RxNorm: 477538 2 Tablet(s) PO daily 02/17/2017 02/16/2017 Inactive Augmentin 500 mg-125 mg tablet RxNorm: 924709 1 Tablet(s) PO TID 02/17/2017 02/23/2017 Inactive take with probiotic BID Kenalog 40 mg/mL suspension for injection RxNorm: 3967017 Milliliter(s) Inj 02/02/2017 02/02/2017 Inactive Zithromax Z-Everardo 250 mg tablet RxNorm: 153741 1 Tablet(s) PO UD 02/02/2017 03/15/2018 Inactive Kenalog 40 mg/mL suspension for injection RxNorm: 2706837 1 Milliliter(s) Inj 05/13/2016 05/13/2016 Inactive Phenergan with Codeine Syrup RxNorm: 5-10 Milliliter(s) PO QID as needed 05/13/2016 03/15/2018 Inactive Augmentin 500 mg-125 mg tablet RxNorm: 620486 1 Tablet(s) PO TID 05/13/2016 05/19/2016 Inactive Ventolin HFA 90 mcg/actuation aerosol inhaler RxNorm: 130516 1 Puff(s) INH PRN 05/06/2016 03/15/2018 Inactive Augmentin 500 mg-125 mg tablet RxNorm: 012394 1 Tablet(s) PO TID 09/27/2015 10/03/2015 Inactive Augmentin 500 mg-125 mg tablet RxNorm: 438908 1 Tablet(s) PO TID 09/27/2015 09/26/2015 Inactive Bactrim DS 800 mg-160 mg tablet RxNorm: 526744 1 Tablet(s) PO BID 09/21/2015 09/27/2015 Inactive Questran 4 gram oral powder RxNorm: 753185 2 Gram(s) PO daily 04/30/2015 05/29/2015 Inactive Sprintec (28) 0.25 mg-35 mcg tablet RxNorm: 651610 1 Tablet(s) PO daily 04/30/2015 05/05/2018 Inactive Ventolin HFA 90 mcg/actuation aerosol inhaler RxNorm: 461177 1 Puff(s) INH PRN No Start Date 05/05/2016 Inactive Medication Administered Medication Codes Instructions Start Date Status Kenalog 40 mg/mL suspension for injection RxNorm: 6994723 Milliliter 02/02/2017 No longer Active Kenalog 40 mg/mL suspension for injection RxNorm: 9751102 1Milliliter 05/13/2016 No longer Active Immunizations Vaccine Codes Date Status Influenza CVX: 141 12/31/2014 completed Assessments Condition Codes Effective Dates Phlebitis and thrombophlebitis of superficial vessels of [...] Visit Effective Dates Notes lower leg pain 05/06/2018 flank pain 2018 [...] NO Growth Day 1 09/24/2015 Comp Metabolic Qij322 NA 138 mEq/L 05/02/2015 Comp Metabolic Gos545 K 3.8 mEq/L 05/02/2015 Comp Metabolic Vhl626 CL 106 mEq/L 05/02/2015 Comp Metabolic Rug134 CO2 24.0 mEq/L 05/02/2015 Comp Metabolic Nug773 ANION GAP 12 05/02/2015 Comp Metabolic Kgm709 GLUCOSE 102 mg/dL 05/02/2015 Comp Metabolic Boc367 Creat 0.9 mg/dL 05/02/2015 Comp Metabolic Dxf247 eGFR 74 ml/min/1.73m2 05/02/2015 Comp Metabolic Odr875 BUN 14 mg/dL 05/02/2015 Comp Metabolic Gfk432 B/C Ratio 15.9 Ratio 05/02/2015 Comp Metabolic Ygx216 CALCIUM 9.0 mg/dL 05/02/2015 Comp Metabolic Tvc737 ALK PHOS 40 U/L 05/02/2015 Comp Metabolic Ipg407 AST(SGOT) 14 U/L 05/02/2015 Comp Metabolic Ayq695 ALT(SGPT) 9 U/L 05/02/2015 Comp Metabolic Pek472 BILI T 0.6 mg/dL 05/02/2015 Comp Metabolic Gzo317 ALBUMIN 4.2 g/dL 05/02/2015 Comp Metabolic Kpo909 TPRO 6.5 g/dL 05/02/2015 Comp Metabolic Wxq199 GLOB 2.3 g/dL 05/02/2015 Comp Metabolic Keh730 A/G Ratio 1.8 Ratio 05/02/2015 Comp Metabolic Net827 Osmo 276 mOsmo 05/02/2015 Cbc With Differential [...] 31.0 pg 05/02/2015 Cbc With Differential Ord2 [place]% 6.1 % 05/02/2015 Cbc With Differential Ord2 [...] 2.18 K/ul 05/02/2015 Cbc With Differential Ord2 [place] ABS# 0.5 K/ul 05/02/2015 Cbc With Differential [...] System Result Effective Dates Constitutional recent illness 05/06/2018 Constitutional No fatigue [...] intact 03/16/2018 None Full Exam - General 1994 Constitutional general appearance Overall: well developed 04/24/2017 [...] Codes Date URINALYSIS NONAUTO W/O SCOPE CPT-4: 63125 03/04/2017 TRIAMCINOLONE ACET INJ NOS CPT-4: J3301 02/02/2017 TRIAMCINOLONE ACET INJ NOS CPT-4: J3301 05/13/2016 Vital Signs Date Vital 05/06/2018 Blood Pressure 1: 132/74 Code: 8480-6 BMI: 26.6 Code: 43746-9 Heart Rate 1: 77 bpm Height: 5'5" SpO2: 96% Weight: 160 lbs 2018 Blood Pressure 1: 145/80 Code: 8480-6 BMI: 26.6 Code: 17824-7 Heart Rate 1: 90 bpm Height: 5'5" SpO2: 99% Weight: 160 lbs 03/16/2018 Blood Pressure 1: 114/80 Code: 8480-6 BMI: 26.5 Code: 52282-1 Heart Rate 1: 82 bpm Height: 5'5" SpO2: 98% Weight: 159 lbs 04/24/2017 Blood Pressure 1: 130/76 Code: 8480-6 BMI: 26.0 Code: 16683-9 Heart Rate 1: 75 bpm Height: 5'5" SpO2: 99% Weight: 156 lbs 02/02/2017 Blood Pressure 1: 128/74 Code: 8480-6 BMI: 26.0 Code: 22121-1 Heart Rate 1: 76 bpm Height: 5'5" SpO2: 98% Temperature: 37.6 (C) / 99.6 (F) Weight: 156 lbs 05/13/2016 Blood Pressure 1: 138/80 Code: 8480-6 BMI: 26.0 Code: 15644-8 Heart Rate 1: 83 bpm Height: 5'5" SpO2: 97% Temperature: 37.1 (C) / 98.7 (F) Weight: 156 lbs 10/11/2015 Blood Pressure 1: 126/72 Code: 8480-6 Heart Rate 1: 80 bpm Height: 5'5" SpO2: 99% Weight: 09/27/2015 Blood Pressure 1: 126/68 Code: 8480-6 BMI: 26.0 Code: 73611-9 Heart Rate 1: 70 bpm Height: 5'5" SpO2: 99% Weight: 156 lbs 09/21/2015 Blood Pressure 1: 138/72 Code: 8480-6 BMI: 26.0 Code: 62404-0 Heart Rate 1: 81 bpm Height: 5'5" SpO2: 98% Weight: 156 lbs 05/29/2015 Blood Pressure 1: 126/62 Code: 8480-6 BMI: 26.1 Code: 51440-5 Heart Rate 1: 83 bpm Height: 5'5" SpO2: 96% Weight: 157 lbs 04/30/2015 Blood Pressure 1: 110/70 Code: 8480-6 BMI: 26.1 Code: 17047-1 Heart Rate 1: 80 bpm Height: 5'5" SpO2: 99% Weight: 157 lbs Functional Status No Functional Status data History of Present Illness Symptom Name Status Result Effective Date Notes Location on the left 05/06/2018 None Quality [...] 05/29/2015 None diarrhea Alleviating Factors medication 05/29/2015 [place] diarrhea Quality increased amount 04/30/2015 None diarrhea [...] data Encounters Encounter Performer Location Codes Date () 28552 EST. PATIENT, LEVEL III Diagnosis: Phlebitis and thrombophlebitis of superficial vessels of left lower extremity[ICD10: I80.02] [facility] CPT-4: 71756 05/06/2018 36017 EST. PATIENT, LEVEL III Diagnosis: Pain in thoracic spine[ICD10: M54.6] [facility] CPT- 4: 19393 2018 14982 EST. PATIENT, LEVEL III Diagnosis: Impacted cerumen, bilateral[ICD10: H61.23] Diagnosis: Acute serous otitis media, left ear[ICD10: H65.02] [facility] CPT-4: 67180 03/16/2018 65782 EST. PATIENT, LEVEL IV Diagnosis: Left upper quadrant pain[ICD10: R10.12] [facility] CPT-4: 10256 04/24/2017 76873 EST. PATIENT, LEVEL III Diagnosis: Acute laryngopharyngitis[ICD10: J06.0] Diagnosis: Other allergic rhinitis[ICD10: J30.89] Merline Leon MD, [facility] CPT- 4: 06823 02/02/2017 66933 EST. PATIENT, LEVEL IV Diagnosis: Acute laryngopharyngitis[ICD10: J06.0] Diagnosis: Other acute sinusitis[ICD10: J01.80] Diagnosis: Other allergic rhinitis[ICD10: J30.89] Merline Leon MD, [facility] CPT- 4: 16737 05/13/2016 57716 EST. PATIENT, LEVEL IV Diagnosis: Strain of other muscle(s) and tendon(s) at lower leg level, right leg, initial encounter[ICD10: S86.811A] Merline Leon MD, [facility] CPT-4: 91173 10/11/2015 14015 EST. PATIENT, LEVEL III Diagnosis: Dysuria[ICD10: R30.0] Diagnosis: Right upper quadrant pain[ICD10: R10.11] Merline Leon MD, [facility] CPT-4: 85846 09/27/2015 13556 EST. PATIENT, LEVEL III Diagnosis: Dysuria[ICD10: R30.0] Merline Leon MD, [facility] CPT-4: 28322 09/21/2015 ([id number]) 18466 EST. 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 PT is to take keflex 500mg tid x 10 days, Aspirin 325mg bid x 2 weeks then daily x 1 month. RTC in 2 weeks 05/06/2018 Appointment: [facility] [phone] [facility] [place] [place] (15 min) Moderate 05/06/2018 Patient Education: [...] not improve. 2018 App[facility]ment[facility] [phone] [facility] [place] ([facility] Complex 2018 Patient [...] removal process. 03/16/2018 App[facility]ment[facility] [phone] [facility] [place] (15 min) Moderate 03/16/2018 Patient Education: Patient Medication Summary Completed 03/16/2018 Care Plan: X-RAY EXAM OF ABDOMEN LOINC : 32596-9 Pending 04/26/2017 Visit Plan: Left flank pain [...] or concerns. 04/24/2017 Appointment: [facility] [phone] [facility] (15 min) Moderate 04/24/2017 Patient Education: Patient [...] allergy spray. 02/02/2017 App[facility]ment: [facility] [phone] [facility] (15 min) Moderate 02/02/2017 Patient Education: Patient [...] allergy spray. 05/13/2016 Appointment: Merline Matta WPtel: [address] [place], [place] [address] (15 min) Moderate 05/13/2016 Patient Education: Patient [...] any concerns. 10/11/2015 Appointment: [facility] [phone] [facility] (30 min) Complex 10/11/2015 Patient Education: Patient Medication Summary Completed 10/11/2015 Visit Plan: Right flank pain - pt states that she feels like she still has a uti - will repeat UA C&S if indicated - will order KUB, will treat pending results. 09/27/2015 Appointment: [facility] [phone] [facility] [place] (30 min) Complex 09/27/2015 Patient Education: Patient [...] Education: Obesity Completed 09/21/2015 Visit Plan: Thyroid rbqwedc-yrplve-gagbbl ultrasound in 6 months Chronic diarrhea-significantly improved-continue questran 05/29/2015 Visit Plan: Thyroid dasendv-orqjir-jdjcsx ultrasound in 6-12 months-minimal change Chronic diarrhea-significantly [...] nasal steroid allergy spray. . Thrombophlebitis - - pt was sent [...] worsen, or with any concerns. . Thyroid jhvzqwp-opdbpi-ntendn ultrasound in 6 months Chronic diarrhea-significantly improved-continue questran . Thyroid emqlghf-yatwof-spfutg ultrasound in 6-12 months-minimal change Chronic diarrhea-significantly [...]
--- OUTSIDE RECORDS SUMMARY | 2018-09-10 08:30 | XMS REPORT | CCD ---
Author Author [facility] Address [address] [place] [address] Phone Care Team Providers Care Material Expeditor Name Role Phone PP Unavailable CCM Unavailable Summary Purpose Interface Exchange Insurance Providers Payer name Policy type / Coverage type Covered green party ID Effective Begin Date Effective End Date Blue Cross [facility] Blue Cross/[facility] [id number] Unknown Unknown Family history Daughter Diagnosis Age At Onset Asthma Unknown Father Diagnosis Age At Onset Cancer Unknown Mother Diagnosis Age At Onset Hyperlipidemia Unknown Social History Social History Element Codes Description Effective Dates Marital status Unknown 04/30/2015 Number of children Unknown 3 04/30/[address]: 969227546 Never smoker 04/30/[address]: 034475588 Never drinks alcohol 04/30/2015 Allergies, Adverse Reactions, [...] Fill Instructions cephalexin 500 mg tablet RxNorm: 464027 1 Capsule(s) PO TID 05/06/2018 05/15/2018 Active cyclobenzaprine 5 mg tablet RxNorm: 626069 1 Tablet(s) PO TID as needed muscle spasms 2018 05/08/2018 Active Augmentin 500 mg-125 mg tablet RxNorm: 471676 1 Tablet(s) PO TID 03/16/2018 03/22/2018 Inactive take with probiotic BID prednisone 20 mg tablet RxNorm: 225316 2 Tablet(s) PO daily to equil 40mg 02/17/2017 02/21/2017 Inactive prednisone 20 mg tablet RxNorm: 307487 2 Tablet(s) PO daily 02/17/2017 02/16/2017 Inactive Augmentin 500 mg-125 mg tablet RxNorm: 089760 1 Tablet(s) PO TID 02/17/2017 02/23/2017 Inactive take with probiotic BID Kenalog 40 mg/mL suspension for injection RxNorm: 7934912 Milliliter(s) Inj 02/02/2017 02/02/2017 Inactive Zithromax Z-Everardo 250 mg tablet RxNorm: 557187 1 Tablet(s) PO UD 02/02/2017 03/15/2018 Inactive Kenalog 40 mg/mL suspension for injection RxNorm: 4733609 1 Milliliter(s) Inj 05/13/2016 05/13/2016 Inactive Phenergan with Codeine Syrup RxNorm: 5-10 Milliliter(s) PO QID as needed 05/13/2016 03/15/2018 Inactive Augmentin 500 mg-125 mg tablet RxNorm: 261180 1 Tablet(s) PO TID 05/13/2016 05/19/2016 Inactive Ventolin HFA 90 mcg/actuation aerosol inhaler RxNorm: 058510 1 Puff(s) INH PRN 05/06/2016 03/15/2018 Inactive Augmentin 500 mg-125 mg tablet RxNorm: 821169 1 Tablet(s) PO TID 09/27/2015 10/03/2015 Inactive Augmentin 500 mg-125 mg tablet RxNorm: 344081 1 Tablet(s) PO TID 09/27/2015 09/26/2015 Inactive Bactrim DS 800 mg-160 mg tablet RxNorm: 227182 1 Tablet(s) PO BID 09/21/2015 09/27/2015 Inactive Questran 4 gram oral powder RxNorm: 587295 2 Gram(s) PO daily 04/30/2015 05/29/2015 Inactive Sprintec (28) 0.25 mg-35 mcg tablet RxNorm: 488617 1 Tablet(s) PO daily 04/30/2015 05/05/2018 Inactive Ventolin HFA 90 mcg/actuation aerosol inhaler RxNorm: 937062 1 Puff(s) INH PRN No Start Date 05/05/2016 Inactive Medication Administered Medication Codes Instructions Start Date Status Kenalog 40 mg/mL suspension for injection RxNorm: 3143828 Milliliter 02/02/2017 No longer Active Kenalog 40 mg/mL suspension for injection RxNorm: 6740812 1Milliliter 05/13/2016 No longer Active Immunizations Vaccine [...] NO Growth Day 1 09/24/2015 Comp Metabolic Rcg079 NA 138 mEq/L 05/02/2015 Comp Metabolic Xxg761 K 3.8 mEq/L 05/02/2015 Comp Metabolic Xgg774 CL 106 mEq/L 05/02/2015 Comp Metabolic Ghp335 CO2 24.0 mEq/L 05/02/2015 Comp Metabolic Sbf521 ANION GAP 12 05/02/2015 Comp Metabolic Lbd092 GLUCOSE 102 mg/dL 05/02/2015 Comp Metabolic Avf129 Creat 0.9 mg/dL 05/02/2015 Comp Metabolic Uop017 eGFR 74 ml/min/1.73m2 05/02/2015 Comp Metabolic Axg294 BUN 14 mg/dL 05/02/2015 Comp Metabolic Hmf608 B/C Ratio 15.9 Ratio 05/02/2015 Comp Metabolic Oat946 CALCIUM 9.0 mg/dL 05/02/2015 Comp Metabolic Wuy819 ALK PHOS 40 U/L 05/02/2015 Comp Metabolic Zgp652 AST(SGOT) 14 U/L 05/02/2015 Comp Metabolic Nnx800 ALT(SGPT) 9 U/L 05/02/2015 Comp Metabolic Cim497 BILI T 0.6 mg/dL 05/02/2015 Comp Metabolic Qhq741 ALBUMIN 4.2 g/dL 05/02/2015 Comp Metabolic Aij770 TPRO 6.5 g/dL 05/02/2015 Comp Metabolic Xzm692 GLOB 2.3 g/dL 05/02/2015 Comp Metabolic Wye745 A/G Ratio 1.8 Ratio 05/02/2015 Comp Metabolic Cga467 Osmo 276 mOsmo 05/02/2015 Cbc With Differential [...] 31.0 pg 05/02/2015 Cbc With Differential Ord2 [place]% 6.1 % 05/02/2015 Cbc With Differential Ord2 [...] 2.18 K/ul 05/02/2015 Cbc With Differential Ord2 [place] ABS# 0.5 K/ul 05/02/2015 Cbc With Differential [...] Codes Date URINALYSIS NONAUTO W/O SCOPE CPT-4: 55062 03/04/2017 TRIAMCINOLONE ACET INJ NOS CPT-4: J3301 02/02/2017 TRIAMCINOLONE ACET INJ NOS CPT-4: J3301 05/13/2016 Vital Signs Date Vital 05/06/2018 Blood Pressure 1: 132/74 Code: 8480-6 BMI: 26.6 Code: 90215-4 Heart Rate 1: 77 bpm Height: 5'5" SpO2: 96% Weight: 160 lbs 2018 Blood Pressure 1: 145/80 Code: 8480-6 BMI: 26.6 Code: 64876-9 Heart Rate 1: 90 bpm Height: 5'5" SpO2: 99% Weight: 160 lbs 03/16/2018 Blood Pressure 1: 114/80 Code: 8480-6 BMI: 26.5 Code: 33444-8 Heart Rate 1: 82 bpm Height: 5'5" SpO2: 98% Weight: 159 lbs 04/24/2017 Blood Pressure 1: 130/76 Code: 8480-6 BMI: 26.0 Code: 25743-0 Heart Rate 1: 75 bpm Height: 5'5" SpO2: 99% Weight: 156 lbs 02/02/2017 Blood Pressure 1: 128/74 Code: 8480-6 BMI: 26.0 Code: 87386-1 Heart Rate 1: 76 bpm Height: 5'5" SpO2: 98% Temperature: 37.6 (C) / 99.6 (F) Weight: 156 lbs 05/13/2016 Blood Pressure 1: 138/80 Code: 8480-6 BMI: 26.0 Code: 09324-5 Heart Rate 1: 83 bpm Height: 5'5" SpO2: 97% Temperature: 37.1 (C) / 98.7 (F) Weight: 156 lbs 10/11/2015 Blood Pressure 1: 126/72 Code: 8480-6 Heart Rate 1: 80 bpm Height: 5'5" SpO2: 99% Weight: 09/27/2015 Blood Pressure 1: 126/68 Code: 8480-6 BMI: 26.0 Code: 56819-5 Heart Rate 1: 70 bpm Height: 5'5" SpO2: 99% Weight: 156 lbs 09/21/2015 Blood Pressure 1: 138/72 Code: 8480-6 BMI: 26.0 Code: 89245-4 Heart Rate 1: 81 bpm Height: 5'5" SpO2: 98% Weight: 156 lbs 05/29/2015 Blood Pressure 1: 126/62 Code: 8480-6 BMI: 26.1 Code: 95798-9 Heart Rate 1: 83 bpm Height: 5'5" SpO2: 96% Weight: 157 lbs 04/30/2015 Blood Pressure 1: 110/70 Code: 8480-6 BMI: 26.1 Code: 13735-8 Heart Rate 1: 80 bpm Height: 5'5" [...] Encounters Encounter Performer Location Codes Date () 37528 EST. PATIENT, LEVEL III Diagnosis: Phlebitis and thrombophlebitis of superficial vessels of left lower extremity[ICD10: I80.02] [facility] CPT-4: 60995 05/06/2018 90498 EST. PATIENT, LEVEL III Diagnosis: Pain in thoracic spine[ICD10: M54.6] [facility] CPT- 4: 09113 2018 30659 EST. PATIENT, LEVEL III Diagnosis: Impacted cerumen, bilateral[ICD10: H61.23] Diagnosis: Acute serous otitis media, left ear[ICD10: H65.02] [facility] CPT-4: 66832 03/16/2018 62723 EST. PATIENT, LEVEL IV Diagnosis: Left upper quadrant pain[ICD10: R10.12] [facility] CPT-4: 74344 04/24/2017 53388 EST. PATIENT, LEVEL III Diagnosis: Acute laryngopharyngitis[ICD10: J06.0] Diagnosis: Other allergic rhinitis[ICD10: J30.89] Merline Leon MD, [facility] CPT- 4: 07536 02/02/2017 36197 EST. PATIENT, LEVEL IV Diagnosis: Acute laryngopharyngitis[ICD10: J06.0] Diagnosis: Other acute sinusitis[ICD10: J01.80] Diagnosis: Other allergic rhinitis[ICD10: J30.89] Merline Leon MD, [facility] CPT- 4: 43012 05/13/2016 15106 EST. PATIENT, LEVEL IV Diagnosis: Strain of other muscle(s) and tendon(s) at lower leg level, right leg, initial encounter[ICD10: S86.811A] Merline Leon MD, [facility] CPT-4: 25281 10/11/2015 72151 EST. PATIENT, LEVEL III Diagnosis: Dysuria[ICD10: R30.0] Diagnosis: Right upper quadrant pain[ICD10: R10.11] Merline Leon MD, [facility] CPT-4: 39183 09/27/2015 17376 EST. PATIENT, LEVEL III Diagnosis: Dysuria[ICD10: R30.0] Merline Leon MD, [facility] CPT-4: 03635 09/21/2015 ([id number]) 86024 EST. 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 RTC in 2 weeks 05/06/2018 Patient Education: Patient Medication Summary Completed [...] improve. 2018 App[facility]ment: [facility] [phone] [facility] [place] ([facility] [place]) Complex 2018 Patient [...] process. 03/16/2018 Appointment: [facility] [phone] [facility] [place] (15 min) Moderate 03/16/2018 Patient Education: Patient Medication Summary Completed 03/16/2018 Care Plan: X-RAY EXAM OF ABDOMEN LOINC : 03870-5 Pending 04/26/2017 Visit Plan: Left flank pain [...] concerns. 04/24/2017 Appointment: [facility] [phone] [facility] (15 min) Moderate 04/24/2017 Patient Education: [...] spray. 02/02/2017 Appointment: [facility] [phone] [facility] (15 min) Moderate 02/02/2017 Patient Education: [...] allergy spray. 05/13/2016 Appointment: Merline Matta WPtel: [facility] (15 min) Moderate 05/13/2016 Patient Education: Patient [...] any concerns. 10/11/2015 Appointment: Merline Matta WPtel: [facility] (30 min) Complex 10/11/2015 Patient Education: Patient Medication Summary Completed 10/11/2015 Visit Plan: Right flank pain - pt states that she feels like she still has a uti - will repeat UA C&S if indicated - will order KUB, will treat pending results. 09/27/2015 Appointment: [facility] [phone] [facility] (30 min) Complex 09/27/2015 Patient Education: Patient [...] Education: Obesity Completed 09/21/2015 Visit Plan: Thyroid ckhezgd-dcudsk-lcgysq ultrasound in 6 months Chronic diarrhea-significantly improved-continue questran 05/29/2015 Visit Plan: Thyroid vgcdjio-ghmpon-csivfh ultrasound in 6-12 months-minimal change Chronic diarrhea-significantly [...] worsen, or with any concerns. . Thyroid ugulred-gszirw-qlhten ultrasound in 6 months Chronic diarrhea-significantly improved-continue questran . Thyroid yrlxidj-wqqddp-bhpwtq ultrasound in 6-12 months-minimal change Chronic diarrhea-significantly [...]
--- OUTSIDE RECORDS SUMMARY | 2018-09-10 08:31 | XMS REPORT | CCD ---
Author Author [facility] Address [address] [place] [address] Phone Care Team Providers Care [employer] Scientist Name Role Phone PP Unavailable CCM Unavailable Summary Purpose Interface Exchange Insurance Providers Payer name Policy type / Coverage type Covered democrat ID Effective Begin Date Effective End Date Blue Cross [facility] Blue Cross/[facility] [id number] Unknown Unknown Family history Daughter Diagnosis Age At Onset Asthma Unknown Father Diagnosis Age At Onset Cancer Unknown Mother Diagnosis Age At Onset Hyperlipidemia Unknown Social History Social History Element Codes Description Effective Dates Marital status Unknown 04/30/2015 Number of children Unknown 3 04/30/[address]: 796804574 Never smoker 04/30/[address]: 788831308 Never drinks alcohol 04/30/2015 Allergies, Adverse Reactions, Alerts Substance Reaction Codes Entered Date Inactivated Date Status * NO KNOWN DRUG ALLERGIES Unknown 04/30/2015 No Inactive Date Active Past Medical History Illness Codes Condition Status Onset Date Resolved Date Acute serous otitis media, left ear ICD-9: [...] Problems Condition Codes Effective Dates Condition Status Acute serous otitis media, left ear ICD-9: [...] Start Date Stop Date Status Fill Instructions Augmentin 500 mg-125 mg tablet RxNorm: 516619 1 Tablet(s) PO TID 03/16/2018 03/22/2018 Active take with probiotic BID prednisone 20 mg tablet RxNorm: 992684 2 Tablet(s) PO daily to equil 40mg 02/17/2017 02/21/2017 Inactive prednisone 20 mg tablet RxNorm: 762586 2 Tablet(s) PO daily 02/17/2017 02/16/2017 Inactive Augmentin 500 mg-125 mg tablet RxNorm: 826189 1 Tablet(s) PO TID 02/17/2017 02/23/2017 Inactive take with probiotic BID Kenalog 40 mg/mL suspension for injection RxNorm: 4830582 Milliliter(s) Inj 02/02/2017 02/02/2017 Inactive Zithromax Z-Everardo 250 mg tablet RxNorm: 712383 1 Tablet(s) PO UD 02/02/2017 03/15/2018 Inactive Kenalog 40 mg/mL suspension for injection RxNorm: 9716138 1 Milliliter(s) Inj 05/13/2016 05/13/2016 Inactive Phenergan with Codeine Syrup RxNorm: 5-10 Milliliter(s) PO QID as needed 05/13/2016 03/15/2018 Inactive Augmentin 500 mg-125 mg tablet RxNorm: 952608 1 Tablet(s) PO TID 05/13/2016 05/19/2016 Inactive Ventolin HFA 90 mcg/actuation aerosol inhaler RxNorm: 165454 1 Puff(s) INH PRN 05/06/2016 03/15/2018 Inactive Augmentin 500 mg-125 mg tablet RxNorm: 404626 1 Tablet(s) PO TID 09/27/2015 10/03/2015 Inactive Augmentin 500 mg-125 mg tablet RxNorm: 735356 1 Tablet(s) PO TID 09/27/2015 09/26/2015 Inactive Bactrim DS 800 mg-160 mg tablet RxNorm: 160559 1 Tablet(s) PO BID 09/21/2015 09/27/2015 Inactive Sprintec (28) 0.25 mg-35 mcg tablet RxNorm: 029281 1 Tablet(s) PO daily 04/30/2015 05/29/2015 Inactive Questran 4 gram oral powder RxNorm: 588372 2 Gram(s) PO daily 04/30/2015 05/29/2015 Inactive Ventolin HFA 90 mcg/actuation aerosol inhaler RxNorm: 299348 1 Puff(s) INH PRN No Start Date 05/05/2016 Inactive Medication Administered Medication Codes Instructions Start Date Status Kenalog 40 mg/mL suspension for injection RxNorm: 6558036 Milliliter 02/02/2017 No longer Active Kenalog 40 mg/mL suspension for injection RxNorm: 4848267 1Milliliter 05/13/2016 No longer Active Immunizations Vaccine Codes Date Status Influenza CVX: 141 12/31/2014 completed Assessments Condition Codes Effective Dates Acute serous otitis media, left ear ICD-10: [...] Visit Reason For Visit Effective Dates Notes earache 03/16/2018 abdominal pain 04/24/2017 sinus congestion [...] NO Growth Day 1 09/24/2015 Comp Metabolic Yxm743 NA 138 mEq/L 05/02/2015 Comp Metabolic Lvw884 K 3.8 mEq/L 05/02/2015 Comp Metabolic Epk518 CL 106 mEq/L 05/02/2015 Comp Metabolic Ugy495 CO2 24.0 mEq/L 05/02/2015 Comp Metabolic Zlc197 ANION GAP 12 05/02/2015 Comp Metabolic Foh688 GLUCOSE 102 mg/dL 05/02/2015 Comp Metabolic Lav929 Creat 0.9 mg/dL 05/02/2015 Comp Metabolic Tny881 eGFR 74 ml/min/1.73m2 05/02/2015 Comp Metabolic Qqq154 BUN 14 mg/dL 05/02/2015 Comp Metabolic Aqc171 B/C Ratio 15.9 Ratio 05/02/2015 Comp Metabolic Bdl487 CALCIUM 9.0 mg/dL 05/02/2015 Comp Metabolic Vky212 ALK PHOS 40 U/L 05/02/2015 Comp Metabolic Umw683 AST(SGOT) 14 U/L 05/02/2015 Comp Metabolic Tyw812 ALT(SGPT) 9 U/L 05/02/2015 Comp Metabolic Oey304 BILI T 0.6 mg/dL 05/02/2015 Comp Metabolic Khv923 ALBUMIN 4.2 g/dL 05/02/2015 Comp Metabolic Plr919 TPRO 6.5 g/dL 05/02/2015 Comp Metabolic Bik210 GLOB 2.3 g/dL 05/02/2015 Comp Metabolic Ezg708 A/G Ratio 1.8 Ratio 05/02/2015 Comp Metabolic Fpd913 Osmo 276 mOsmo 05/02/2015 Cbc With Differential Ord2 WBC 8.87 K/ul 05/02/2015 Cbc With Differential Ord2 RBC 4.67 M/ul 05/02/2015 Cbc With Differential Ord2 HGB 14.5 g/dl 05/02/2015 Cbc With Differential Ord2 Neut% 68.1 % 05/02/2015 Cbc With Differential Ord2 HCT 42.2 % 05/02/2015 Cbc With Differential Ord2 Lymph% 24.6 % 05/02/2015 Cbc With Differential Ord2 MCV 90.4 fl 05/02/2015 Cbc With Differential Ord2 MCH 31.0 pg 05/02/2015 Cbc With Differential Ord2 Norton% 6.1 % 05/02/2015 Cbc With Differential Ord2 Eos% 0.7 % 05/02/2015 Cbc With Differential Ord2 MCHC 34.4 pg 05/02/2015 Cbc With Differential Ord2 Baso% 0.5 % 05/02/2015 Cbc With Differential Ord2 PLT 235 K/ul 05/02/2015 Cbc With Differential Ord2 Neut ABS# 6.05 K/ul 05/02/2015 Cbc With Differential Ord2 RDW 12.8 % 05/02/2015 Cbc With Differential Ord2 Lymph ABS# 2.18 K/ul 05/02/2015 Cbc With Differential Ord2 Norton ABS# 0.5 K/ul 05/02/2015 Cbc With Differential [...] of Systems System Result Effective Dates Constitutional No recent illness 03/16/2018 Constitutional No [...] Result Effective Dates Notes Full Exam - ENT Constitutional general appearance [...] Codes Date URINALYSIS NONAUTO W/O SCOPE CPT-4: 89789 03/04/2017 TRIAMCINOLONE ACET INJ NOS CPT-4: J3301 02/02/2017 TRIAMCINOLONE ACET INJ NOS CPT-4: J3301 05/13/2016 Vital Signs Date Vital 03/16/2018 Blood Pressure 1: 114/80 Code: 8480-6 BMI: 26.5 Code: 21039-3 Heart Rate 1: 82 bpm Height: 5'5" SpO2: 98% Weight: 159 lbs 04/24/2017 Blood Pressure 1: 130/76 Code: 8480-6 BMI: 26.0 Code: 44912-9 Heart Rate 1: 75 bpm Height: 5'5" SpO2: 99% Weight: 156 lbs 02/02/2017 Blood Pressure 1: 128/74 Code: 8480-6 BMI: 26.0 Code: 18885-7 Heart Rate 1: 76 bpm Height: 5'5" SpO2: 98% Temperature: 37.6 (C) / 99.6 (F) Weight: 156 lbs 05/13/2016 Blood Pressure 1: 138/80 Code: 8480-6 BMI: 26.0 Code: 21173-2 Heart Rate 1: 83 bpm Height: 5'5" SpO2: 97% Temperature: 37.1 (C) / 98.7 (F) Weight: 156 lbs 10/11/2015 Blood Pressure 1: 126/72 Code: 8480-6 Heart Rate 1: 80 bpm Height: 5'5" SpO2: 99% Weight: 09/27/2015 Blood Pressure 1: 126/68 Code: 8480-6 BMI: 26.0 Code: 45282-1 Heart Rate 1: 70 bpm Height: 5'5" SpO2: 99% Weight: 156 lbs 09/21/2015 Blood Pressure 1: 138/72 Code: 8480-6 BMI: 26.0 Code: 79495-3 Heart Rate 1: 81 bpm Height: 5'5" SpO2: 98% Weight: 156 lbs 05/29/2015 Blood Pressure 1: 126/62 Code: 8480-6 BMI: 26.1 Code: 20941-5 Heart Rate 1: 83 bpm Height: 5'5" SpO2: 96% Weight: 157 lbs 04/30/2015 Blood Pressure 1: 110/70 Code: 8480-6 BMI: 26.1 Code: 00320-4 Heart Rate 1: 80 bpm Height: 5'5" SpO2: 99% Weight: 157 lbs Functional Status No Functional Status data History of Present Illness Symptom Name Status Result Effective Date Notes Location both ears 03/16/2018 None Quality acute [...] 05/29/2015 None diarrhea Alleviating Factors medication 05/29/2015 questran diarrhea Quality increased amount 04/30/2015 None diarrhea [...] data Encounters Encounter Performer Location Codes Date 20147 EST. PATIENT, LEVEL III Diagnosis: Impacted cerumen, bilateral[ICD10: H61.23] Diagnosis: Acute serous otitis media, left ear[ICD10: H65.02] Merline Leon MD, [facility] CPT-4: 97240 03/16/2018 57700 EST. PATIENT, LEVEL IV Diagnosis: Left upper quadrant pain[ICD10: R10.12] Merline Leon MD, [facility] CPT-4: 87068 04/24/2017 11100 EST. PATIENT, LEVEL III Diagnosis: Acute laryngopharyngitis[ICD10: J06.0] Diagnosis: Other allergic rhinitis[ICD10: J30.89] Merline Leon MD, [facility] CPT- 4: 19450 02/02/2017 07027 EST. PATIENT, LEVEL IV Diagnosis: Acute laryngopharyngitis[ICD10: J06.0] Diagnosis: Other acute sinusitis[ICD10: J01.80] Diagnosis: Other allergic rhinitis[ICD10: J30.89] Merline Leon MD, [facility] CPT- 4: 25637 05/13/2016 92850 EST. PATIENT, LEVEL IV Diagnosis: Strain of other muscle(s) and tendon(s) at lower leg level, right leg, initial encounter[ICD10: S86.811A] Merline Leon MD, [facility] CPT-4: 53865 10/11/2015 43601 EST. PATIENT, LEVEL III Diagnosis: Dysuria[ICD10: R30.0] Diagnosis: Right upper quadrant pain[ICD10: R10.11] DAT Spears MD CPT-4: 30554 09/27/2015 37715 EST. PATIENT, LEVEL III Diagnosis: Dysuria[ICD10: R30.0] Merline Leon MD [facility] CPT-4: 72599 09/21/2015 ([id number]) 27684 EST. 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 03/16/2018 Appointment: Merline Matta WPtel: [address] [place], [place] [id number] (15 min) Moderate 03/16/2018 Patient Education: Patient Medication Summary Completed 03/16/2018 Care Plan: X-RAY EXAM OF ABDOMEN LOINC : 45577-3 Pending 04/26/2017 Visit Plan: Left flank pain [...] concerns. 04/24/2017 Appointment: Merline Matta WPtel: [phone] [facility] [id number] (15 min) Moderate 04/24/2017 Patient Education: Patient [...] allergy spray. 02/02/2017 Appointment: Merline Matta WPtel: [phone] [facility] [id number] (15 min) Moderate 02/02/2017 Patient Education: Patient [...] allergy spray. 05/13/2016 Appointment: Merline Matta WPtel: [address] [place], [place] [id number] (15 min) Moderate 05/13/2016 Patient Education: Patient [...] any concerns. 10/11/2015 Appointment: Merline Matta WPtel: [phone] [facility] [id number] [place] (30 min) Complex 10/11/2015 Patient Education: Patient Medication Summary Completed 10/11/2015 Visit Plan: Right flank pain - pt states that she feels like she still has a uti - will repeat UA C&S if indicated - will order KUB, will treat pending results. 09/27/2015 Appointment: Merline Matta WPtel: [phone] [facility] [id number] [place] (30 min) Complex 09/27/2015 Patient Education: [...] Education: Obesity Completed 09/21/2015 Visit Plan: Thyroid ygjfpea-oiwvkk-wryhel ultrasound in 6 months Chronic diarrhea-significantly improved-continue questran 05/29/2015 Visit Plan: Thyroid xohgglq-jybcgm-llnbjj ultrasound in 6-12 months-minimal change Chronic diarrhea-significantly [...] worsen, or with any concerns. . Thyroid qjslhof-lzvyoq-rothuv ultrasound in 6 months Chronic diarrhea-significantly improved-continue questran . Thyroid xafpada-cbjigr-fgrjrt ultrasound in 6-12 months-minimal change Chronic diarrhea-significantly improved-continue questran Thyroid ultrasound . Multinodular goiter-follow up thyroid [...]
--- OUTSIDE RECORDS SUMMARY | 2018-09-10 08:32 | XMS REPORT | Continuity of Care Document ---
Author Organization Unknown Address Unknown Allergies Active Description Code Type Severity Reaction Onset Reported/Identified Relationship to Patient Clinical Status Yes No Known Drug Allergies [id number] Drug Allergy Unknown N/A 06/02/2011 Medications There is no data. Problems Date Dx Coded Attending Type Code Diagnosis Diagnosed By 07/07/2009 Ot 780.50 06/02/2011 Ot 530.81 ESOPHAGEAL REFLUX 06/02/2011 Ot 789.00 ABDOMINAL PAIN, UNSPECIFIED SITE 04/14/2014 BELLA ENCARNACION, PRINCE Whitmore Ot 574.20 04/18/2014 Ot 240.9 04/18/2014 Ot 240.9 04/18/2014 Ot 246.2 04/18/2014 Ot V76.12 04/18/2014 Ot 789.00 04/18/2014 Ot V13.01 04/18/2014 Ot 780.4 04/18/2014 Ot 784.0 04/18/2014 BELLA ENCARNACION, PRINCE Whitmore Ot V76.12 04/18/2014 PAULA ENCARNACION, LOLLY Comer Ot 241.0 04/18/2014 BELLA ENCARNACION, PRINCE Whitmore Ot 574.20 04/20/2014 BELLA ENCARNACION, PRINCE Whitmore Ot V76.12 04/24/2014 WILLI ENCARNACION, IDALIA Comer Ot 787.91 DIARRHEA 04/24/2014 WILLI ENCARNACION, IDALIA Comer Ot V12.72 PERSONAL HISTORY OF COLONIC POLYPS 04/24/2014 WILLI ENCARNACION, IDALIA Comer Ot V16.0 FAMILY HX-GI MALIGNANCY 04/27/2014 BELLA ENCARNACION, PRINCE Whitmore Ot 574.20 04/28/2014 WILLI ENCARNACION, IDALIA Comer Ot 575.11 CHRONIC CHOLECYSTITIS 05/14/2015 Ot 789.00 05/14/2015 Ot V13.01 05/14/2015 Ot 780.4 05/14/2015 Ot 784.0 05/14/2015 BELLA ENCARNACION, PRINCE Whitmore Ot V76.12 05/14/2015 PAULA ENCARNACION, LOLLY Comer Ot 241.0 05/14/2015 BELLA ENCARNACION, PRINCE Whitmore Ot V76.12 05/14/2015 BELLA ENCARNACION, PRINCE Whitmore Ot 574.20 05/14/2015 WILLI ENCARNACION, IDALIA Comer Ot 575.6 05/14/2015 WILLI ENCARNACION, IDALIA Comer Ot V72.63 05/14/2015 WILLI ENCARNACION, IDALIA Comer Ot V74.8 05/14/2015 WILLI ENCARNACION, IDALIA Comer Ot V72.84 05/16/2015 BELLA ENCARNACION, PRINCE Whitmore Ot Z12.31 05/16/2015 FREDRICK RODRIGUEZ Ot E04.2 05/30/2015 BELLA ENCARNACION, PRINCE Whitmore Ot Z12.31 05/30/2015 FREDRICK RODRIGUEZP Ot E04.2 08/24/2015 Ot 780.4 DIZZINESS AND GIDDINESS 08/24/2015 Ot 784.0 HEADACHE 08/24/2015 BELLA ENCARNACION, PRINCE Whitmore Ot V76.12 OTH SCREEN MAMMO-MALIGN NEOPLASM OF ASHLEY 08/24/2015 PAULA ENCARNACION, LOLLY Comer Ot 241.0 NONTOX UNINODULAR GOITER 08/24/2015 BELLA ENCARNACION, PRINCE Whitmore Ot V76.12 OTH SCREEN MAMMO-MALIGN NEOPLASM OF ASHLEY 08/24/2015 BELLA ENCARNACION, PRINCE Whitmore Ot 574.20 CHOLELITHIASIS NOS 08/24/2015 WILLI ENCARNACION, IDALIA Comer Ot 575.6 GB CHOLESTEROLOSIS 08/24/2015 WILLI ENCARNACION, IDALIA Comer Ot V72.63 PRE-PROCEDURAL LABORATORY EXAMINATION 08/24/2015 WILLI ENCARNACION, IDALIA Comer Ot V74.8 SCREEN-BACTERIAL DIS NEC 08/24/2015 WILLI ENCARNACION, IDALIA Comer Ot V72.84 EXAM PRE-OPERATIVE NOS 08/24/2015 BELLA ENCARNACION, PRINCE Whitmore Ot Z12.31 ENCNTR SCREEN MAMMOGRAM FOR MALIGNANT NE 08/24/2015 FREDRICK RODRIGUEZ COLLAR SHAPER OPERATOR Ot E04.2 NONTOXIC MULTINODULAR GOITER 08/27/2015 Ot 780.4 DIZZINESS AND GIDDINESS 08/27/2015 Ot 784.0 HEADACHE 08/27/2015 PRINCE BLANCO MD Ot V76.12 OTH SCREEN MAMMO-MALIGN NEOPLASM OF ASHLEY 08/27/2015 PAULA ENCARNACION, LOLLY Comer Ot 241.0 NONTOX UNINODULAR GOITER 08/27/2015 PRINCE BLANCO MD Ot V76.12 OTH SCREEN MAMMO-MALIGN NEOPLASM OF ASHLEY 08/27/2015 PRINCE BLANCO MD Ot 574.20 CHOLELITHIASIS NOS 08/27/2015 WILLI ENCARNACION, IDALIA Comer Ot 575.6 GB CHOLESTEROLOSIS 08/27/2015 WILLI ENCARNACION, IDALIA Comer Ot V72.63 PRE-PROCEDURAL LABORATORY EXAMINATION 08/27/2015 WILLI ENCARNACION, IDALIA Comer Ot V74.8 SCREEN-BACTERIAL DIS NEC 08/27/2015 WILLI ENCARNACION, IDALIA Comer Ot V72.84 EXAM PRE-OPERATIVE NOS 08/27/2015 PRINCE BLANCO MD Ot Z12.31 ENCNTR SCREEN MAMMOGRAM FOR MALIGNANT NE 08/27/2015 FREDRICK RODRIGUEZ [facility] Ot E04.2 NONTOXIC MULTINODULAR GOITER 09/27/2015 Ot 780.4 DIZZINESS AND GIDDINESS 09/27/2015 Ot 784.0 HEADACHE 09/27/2015 PRINCE BLANCO MD Ot V76.12 OTH SCREEN MAMMO-MALIGN NEOPLASM OF ASHLEY 09/27/2015 PAULA ENCARNACION, LOLLY Comer Ot 241.0 NONTOX UNINODULAR GOITER 09/27/2015 PRINCE BLANCO MD Ot V76.12 OTH SCREEN MAMMO-MALIGN NEOPLASM OF ASHLEY 09/27/2015 PRINCE BLANCO MD Ot 574.20 CHOLELITHIASIS NOS 09/27/2015 WILLI ENCARNACION, IDALIA Comer Ot 575.6 GB CHOLESTEROLOSIS 09/27/2015 WILLI ENCARNACION, IDALIA Comer Ot V72.63 PRE-PROCEDURAL LABORATORY EXAMINATION 09/27/2015 IDALIA MÁRQUEZ MD Ot V74.8 SCREEN-BACTERIAL DIS NEC 09/27/2015 WILLI ENCARNACION, IDALIA Comer Ot V72.84 EXAM PRE-OPERATIVE NOS 09/27/2015 PRINCE BLANCO MD Ot Z12.31 ENCNTR SCREEN MAMMOGRAM FOR MALIGNANT NE 09/27/2015 FREDRICK RODRIGUEZ COLLAR SHAPER OPERATOR Ot E04.2 NONTOXIC MULTINODULAR GOITER 09/28/2015 FAB RIGGS TRAINING TECHNICIAN Ot R10.32 LEFT LOWER QUADRANT PAIN 10/12/2015 FAB RIGGS TRAINING TECHNICIAN Ot R10.32 LEFT LOWER QUADRANT PAIN 10/12/2015 FAB RIGGS TRAINING TECHNICIAN Ot M79.661 PAIN IN RIGHT LOWER LEG 10/15/2015 FAB RIGGS TRAINING TECHNICIAN Ot M79.661 PAIN IN RIGHT LOWER LEG 11/01/2015 FAB RIGGS TRAINING TECHNICIAN Ot M79.661 PAIN IN RIGHT LOWER LEG 05/23/2016 Ot 780.4 DIZZINESS AND GIDDINESS 05/23/2016 Ot 784.0 HEADACHE 05/23/2016 BELLA ENCARNACION, PRINCE Whitmore Ot V76.12 OTH SCREEN MAMMO-MALIGN NEOPLASM OF ASHLEY 05/23/2016 PAULA ENCARNACION, LOLLY Comer Ot 241.0 NONTOX UNINODULAR GOITER 05/23/2016 PRINCE BLANCO MD Ot V76.12 OTH SCREEN MAMMO-MALIGN NEOPLASM OF ASHLEY 05/23/2016 PRINCE BLANCO MD Ot 574.20 CHOLELITHIASIS NOS 05/23/2016 WILLI ENCARNACION, IDALIA Comer Ot 575.6 GB CHOLESTEROLOSIS 05/23/2016 WILLI ENCARNACION, IDALIA Comer Ot V72.63 PRE-PROCEDURAL LABORATORY EXAMINATION 05/23/2016 WILLI ENCARNACION, IDALIA Comer Ot V74.8 SCREEN-BACTERIAL DIS NEC 05/23/2016 WILLI ENCARNACION, IDALIA Comer Ot V72.84 EXAM PRE-OPERATIVE NOS 05/23/2016 PRINCE BLANCO MD Ot Z12.31 ENCNTR SCREEN MAMMOGRAM FOR MALIGNANT NE 05/23/2016 FREDRICK RODRIGUEZ COLLAR SHAPER OPERATOR Ot E04.2 NONTOXIC MULTINODULAR GOITER 05/23/2016 FAB RIGGS APRN Ot R10.32 LEFT LOWER QUADRANT PAIN 05/23/2016 FAB RIGGS TRAINING TECHNICIAN Ot M79.661 PAIN IN RIGHT LOWER LEG 05/23/2016 PRINCE BLANCO MD Ot Z12.31 ENCNTR SCREEN MAMMOGRAM FOR MALIGNANT NE 06/05/2016 PRINCE BLANCO MD, Ot Z12.31 ENCNTR SCREEN MAMMOGRAM FOR MALIGNANT NE 08/21/2016 Ot 780.4 DIZZINESS AND GIDDINESS 08/21/2016 Ot 784.0 HEADACHE 08/21/2016 PRINCE BLANCO MD Ot V76.12 OTH SCREEN MAMMO-MALIGN NEOPLASM OF ASHLEY 08/21/2016 PAULA ENCARNACION, LOLLY Comer Ot 241.0 NONTOX UNINODULAR GOITER 08/21/2016 PRINCE BLANCO MD Ot V76.12 OTH SCREEN MAMMO-MALIGN NEOPLASM OF ASHLEY 08/21/2016 PRINCE BLANCO MD Ot 574.20 CHOLELITHIASIS NOS 08/21/2016 WILLI ENCARNACION, IDALIA Comer Ot 575.6 GB CHOLESTEROLOSIS 08/21/2016 WILLI ENCARNACION, IDALIA Comer Ot V72.63 PRE-PROCEDURAL LABORATORY EXAMINATION 08/21/2016 WILLI ENCARNACION, IDALIA Comer Ot V74.8 SCREEN-BACTERIAL DIS NEC 08/21/2016 WILLI ENCARNACION, IDALIA Comer Ot V72.84 EXAM PRE-OPERATIVE NOS 08/21/2016 PRINCE BLANCO MD Ot Z12.31 ENCNTR SCREEN MAMMOGRAM FOR MALIGNANT NE 08/21/2016 FREDRICK RODRIGUEZ COLLAR SHAPER OPERATOR Ot E04.2 NONTOXIC MULTINODULAR GOITER 08/21/2016 FAB RIGGS TRAINING TECHNICIAN Ot R10.32 LEFT LOWER QUADRANT PAIN 08/21/2016 FAB RIGGS TRAINING TECHNICIAN Ot M79.661 PAIN IN RIGHT LOWER LEG 08/21/2016 PRINCE BLANCO MD Ot Z12.31 ENCNTR SCREEN MAMMOGRAM FOR MALIGNANT NE 03/01/2017 Ot 780.4 DIZZINESS AND GIDDINESS 03/01/2017 Ot 784.0 HEADACHE 03/01/2017 PRINCE BLANCO MD Ot V76.12 OTH SCREEN MAMMO-MALIGN NEOPLASM OF ASHLEY 03/01/2017 PAULA ENCARNACION, LOLLY Comer Ot 241.0 NONTOX UNINODULAR GOITER 03/01/2017 PRINCE BLANCO MD Ot V76.12 OTH SCREEN MAMMO-MALIGN NEOPLASM OF ASHLEY 03/01/2017 PRINCE BLANCO MD Ot 574.20 CHOLELITHIASIS NOS 03/01/2017 WILLI ENCARNACION, IDALIA Comer Ot 575.6 GB CHOLESTEROLOSIS 03/01/2017 WILLI ENCARNACION, IDALIA Comer Ot V72.63 PRE-PROCEDURAL LABORATORY EXAMINATION 03/01/2017 WILLI ENCARNACION, IDALIA Comer Ot V74.8 SCREEN-BACTERIAL DIS NEC 03/01/2017 WILLI ENCARNACION, IDALIA Comer Ot V72.84 EXAM PRE-OPERATIVE NOS 03/01/2017 PRINCE BLANCO MD Ot Z12.31 ENCNTR SCREEN MAMMOGRAM FOR MALIGNANT NE 03/01/2017 FREDRICK RODRIGUEZ Ot E04.2 NONTOXIC MULTINODULAR GOITER 03/01/2017 FAB RIGGS TRAINING TECHNICIAN Ot R10.32 LEFT LOWER QUADRANT PAIN 03/01/2017 FAB RIGGS TRAINING TECHNICIAN Ot M79.661 PAIN IN RIGHT LOWER LEG 03/01/2017 PRINCE BLANCO MD Ot Z12.31 ENCNTR SCREEN MAMMOGRAM FOR MALIGNANT NE 03/01/2017 Ot 780.4 DIZZINESS AND GIDDINESS 03/01/2017 Ot 784.0 HEADACHE 03/01/2017 PRINCE BLANCO MD Ot V76.12 OTH SCREEN MAMMO-MALIGN NEOPLASM OF ASHLEY 03/01/2017 PAULA ENCARNACION, LOLLY Comer Ot 241.0 NONTOX UNINODULAR GOITER 03/01/2017 PRINCE BLANCO MD Ot V76.12 OTH SCREEN MAMMO-MALIGN NEOPLASM OF ASHLEY 03/01/2017 PRINCE BLANCO MD Ot 574.20 CHOLELITHIASIS NOS 03/01/2017 WILLI ENCARNACION, IDALIA Comer Ot 575.6 GB CHOLESTEROLOSIS 03/01/2017 WILLI ENCARNACION, IDALIA Comer Ot V72.63 PRE-PROCEDURAL LABORATORY EXAMINATION 03/01/2017 WILLI ENCARNACION, IDALIA Comer Ot V74.8 SCREEN-BACTERIAL DIS NEC 03/01/2017 WILLI ENCARNACION, IDALIA Comer Ot V72.84 EXAM PRE-OPERATIVE NOS 03/01/2017 PRINCE BLANCO MD Ot Z12.31 ENCNTR SCREEN MAMMOGRAM FOR MALIGNANT NE 03/01/2017 FREDRICK RODRIGUEZ Ot E04.2 NONTOXIC MULTINODULAR GOITER 03/01/2017 FAB RIGGS APRN Ot R10.32 LEFT LOWER QUADRANT PAIN 03/01/2017 FAB RIGGS APRN Ot M79.661 PAIN IN RIGHT LOWER LEG 03/01/2017 PRINCE BLANCO MD, Ot Z12.31 ENCNTR SCREEN MAMMOGRAM FOR MALIGNANT NE 08/18/2017 PRINCE BLANCO MD, Ot Z01.818 ENCOUNTER FOR OTHER PREPROCEDURAL EXAMIN 09/10/2017 PRINCE BLANCO MD, Ot J45.909 UNSPECIFIED ASTHMA, UNCOMPLICATED 09/10/2017 PRINCE BLANCO MD, Ot 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 09/10/2017 PRINCE BLANCO MD, Ot N92.0 EXCESSIVE AND FREQUENT MENSTRUATION WITH 09/10/2017 PRINCE BLANCO MD, Ot N93.8 OTHER SPECIFIED ABNORMAL UTERINE AND VAG 09/23/2017 PRINCE BLANCO MD, Ot Z12.31 ENCNTR SCREEN MAMMOGRAM FOR MALIGNANT NE 10/30/2017 PRINCE BLANCO MD, Ot J45.909 UNSPECIFIED ASTHMA, UNCOMPLICATED 10/30/2017 PRINCE BLANCO MD, Ot 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 Results Test Result Range Urine beta human chorionic gonadotropin (hCG) measurement - 08/21/17 10:57 Urine beta human chorionic gonadotropin (hCG) measurement NEGATIVE NEGATIVE Methicillin resistant Staphylococcus aureus (MRSA) screening culture - 08/21/17 11:07 Methicillin resistant Staphylococcus aureus (MRSA) screening culture NEG NRG Complete blood count (CBC) with automated white blood cell (WBC) differential - 08/21/17 11:25 Blood leukocytes automated count (number/volume) 6.3 10*3/uL 4.3-11.0 Blood erythrocytes automated count (number/volume) 4.58 10*6/uL 4.35-5.85 Venous blood hemoglobin measurement (mass/volume) 14.6 g/dL 11.5-16.0 Blood hematocrit (volume fraction) 41 % 35-52 Automated erythrocyte mean corpuscular volume 90 [foz_us] 80-99 Automated erythrocyte mean corpuscular hemoglobin (mass per erythrocyte) 32 pg 25-34 Automated erythrocyte mean corpuscular hemoglobin concentration measurement (mass/volume) 35 g/dL 32-36 Automated erythrocyte distribution width ratio 12.6 % 10.0- 14.5 Automated blood platelet count (count/volume) 208 10*3/uL 130-400 Automated blood platelet mean volume measurement 9.5 [foz_us] 7.4-10.4 Automated blood neutrophils/100 leukocytes 64 % 42-75 Automated blood lymphocytes/100 leukocytes 27 % 12-44 Blood monocytes/100 leukocytes 8 % 0-12 Automated blood eosinophils/100 leukocytes 1 % 0-10 Automated blood basophils/100 leukocytes 1 % 0-10 Blood neutrophils automated count (number/volume) 4.0 10*3 1.8-7.8 Blood lymphocytes automated count (number/volume) 1.7 10*3 1.0-4.0 Blood monocytes automated count (number/volume) 0.5 10*3 0.0- 1.0 Automated eosinophil count 0.0 10*3/uL 0.0-0.3 Automated blood basophil count (count/volume) 0.0 10*3/uL 0.0-0.1 Complete blood count (CBC) with automated white blood cell (WBC) differential - 09/10/18 06:52 Blood leukocytes automated count (number/volume) 9.6 10*3/uL 4.3-11.0 Blood erythrocytes automated count (number/volume) 4.78 10*6/uL 4.35-5.85 Venous blood hemoglobin measurement (mass/volume) 14.8 g/dL 11.5-16.0 Blood hematocrit (volume fraction) 43 % 35-52 Automated erythrocyte mean corpuscular volume 90 [foz_us] 80-99 Automated erythrocyte mean corpuscular hemoglobin (mass per erythrocyte) 31 pg 25-34 Automated erythrocyte mean corpuscular hemoglobin concentration measurement (mass/volume) 35 g/dL 32-36 Automated erythrocyte distribution width ratio 12.7 % 10.0- 14.5 Automated blood platelet count (count/volume) 269 10*3/uL 130-400 Automated blood platelet mean volume measurement 9.4 [foz_us] 7.4-10.4 Automated blood neutrophils/100 leukocytes 55 % 42-75 Automated blood lymphocytes/100 leukocytes 36 % 12-44 Blood monocytes/100 leukocytes 8 % 0-12 Automated blood eosinophils/100 leukocytes 1 % 0-10 Automated blood basophils/100 leukocytes 0 % 0-10 Blood neutrophils automated count (number/volume) 5.3 10*3 1.8-7.8 Blood lymphocytes automated count (number/volume) 3.5 10*3 1.0-4.0 Blood monocytes automated count (number/volume) 0.8 10*3 0.0- 1.0 Automated eosinophil count 0.1 10*3/uL 0.0-0.3 Automated blood basophil count (count/volume) 0.0 10*3/uL 0.0-0.1 Comprehensive metabolic panel - 09/10/18 06:52 Serum or plasma sodium measurement (moles/volume) 142 mmol/L 135-145 Serum or plasma potassium measurement (moles/volume) 3.2 mmol/L 3.6-5.0 Serum or plasma chloride measurement (moles/volume) 107 mmol/L 98-107 Carbon dioxide 22 mmol/L 21-32 Serum or plasma anion gap determination (moles/volume) 13 mmol/L 5-14 Serum or plasma urea nitrogen measurement (mass/volume) 14 mg/dL 7-18 Serum or plasma creatinine measurement (mass/volume) 1.02 mg/dL 0.60-1.30 Serum or plasma urea nitrogen/creatinine mass ratio 14 NRG Serum or plasma creatinine measurement with calculation of estimated glomerular filtration rate 58 NRG Serum or plasma glucose measurement (mass/volume) 116 mg/dL 70-105 Serum or plasma calcium measurement (mass/volume) 9.4 mg/dL 8.5-10.1 Serum or plasma total bilirubin measurement (mass/volume) 1.0 mg/dL 0.1-1.0 Serum or plasma alkaline phosphatase measurement (enzymatic activity/volume) 56 U/L 40-136 Serum or plasma aspartate aminotransferase measurement (enzymatic activity/volume) 35 U/L 5-34 Serum or plasma alanine aminotransferase measurement (enzymatic activity/volume) 49 U/L 0-55 Serum or plasma protein measurement (mass/volume) 6.8 g/dL 6.4-8.2 Serum or plasma albumin measurement (mass/volume) 4.2 g/dL 3.2-4.5 CALCIUM CORRECTED 9.2 mg/dL 8.5-10.1 Encounters ACCT No. Visit Date/Time Discharge Status Pt. Type Provider Facility Loc./Unit Complaint [id number] 08/05/2018 15:20:00 08/05/2018 23:59:59 CLS Preadmit PRINCE BLANCO MD Via [facility] RAD SCREENING [id number] 05/06/2018 15:20:00 05/06/2018 23:59:59 CLS Outpatient JUAN A OWENS MD [facility] RAD LT LEG PAIN,SWELLING [id number] 09/10/2017 07:35:00 09/10/2017 23:59:59 CLS Outpatient PRINCE BLANCO MD [facility] RAD ROUTINE SCREENING [id number] 08/21/2017 10:46:00 08/21/2017 23:59:59 CLS Outpatient PRINCE BLANCO MD [facility] SDC DYSFUNCTIONAL UTERINE BLEEDING/UTERINE MASS [id number] 08/18/2017 05:32:00 08/18/2017 13:20:00 DIS Outpatient PRINCE BLANCO MD [facility] PREOP DYSFUNCTIONAL UTERINE BLEEDING/UTERINE MASS [id number] 05/05/2017 09:29:00 05/05/2017 23:59:59 CLS Preadmit PRINCE BLANCO MD [facility] RAD ROUTINE SCREENING [id number] 05/23/2016 14:12:00 05/23/2016 23:59:59 CLS Outpatient PRINCE BLANCO MD [facility] RAD SCREENING [id number] 10/11/2015 12:27:00 10/11/2015 23:59:59 CLS Outpatient FAB RIGGS APRN [facility] RAD RIGHT CALF PAIN [id number] 09/27/2015 11:00:00 09/27/2015 23:59:59 CLS Outpatient SHAUN RIGGSIE M JACE [facility] RAD L FLANK PAIN [id number] 05/14/2015 07:29:00 05/14/2015 23:59:59 CLS Outpatient FREDRICK RODRIGUEZ [facility] RAD MULTINODULAR GOITER [id number] 05/14/2015 07:26:00 05/14/2015 23:59:59 CLS Outpatient PRINCE BLANCO MD [facility] RAD SCREENING [id number] 04/28/2014 08:00:00 04/28/2014 23:59:59 CLS Outpatient IDALIA MÁRQUEZ MD [facility] GALL BLADDER POLYPS [id number] 04/24/2014 09:15:00 04/24/2014 23:59:59 CLS Outpatient IDALIA MÁRQUEZ MD [facility] FAMILY HISTORY OF POLYPS; DIARRHEA [id number] 04/21/2014 10:45:00 04/21/2014 23:59:59 CLS Outpatient IDALIA MÁRQUEZ MD [facility] PREOP GALL BLADDER POLYPS [id number] 04/19/2014 15:30:00 04/19/2014 23:59:59 CLS Outpatient IDALIA MÁRQUEZ MD [facility] PREOP FAMILY HISTORY OF POLYPS; DIARRHEA [id number] 04/18/2014 08:44:00 04/18/2014 23:59:59 CLS Outpatient PRINCE BLANCO MD [facility] RAD SCREENING [id number] 04/12/2014 08:55:00 04/12/2014 23:59:59 CLS Outpatient PRINCE BLANCO MD [facility] RAD BILLIARY CHOLIC [id number] 10/12/2013 13:15:00 10/12/2013 23:59:59 CLS Outpatient LOLLY MITCHELL MD [facility] RAD DYSPHAGIA GOITER [id number] 02/24/2013 09:15:00 02/24/2013 23:59:59 CLS Outpatient PRINCE BLANCO MD [facility] RAD SCREENING [id number] 09/10/2018 07:08:00 Document Registration [id number] 04/18/2014 08:45:00 Document Registration [id number] 11/25/2011 08:41:00 Document Registration [id number] 06/02/2011 04:37:00 Document Registration [id number] 12/18/2009 10:11:00 Document Registration [id number] 08/03/2009 10:17:00 Document Registration [id number] 07/06/2009 20:51:00 Document Registration [id number] 02/13/2009 10:43:00 Document Registration [id number] 02/02/2009 09:59:00 Document Registration [id number] 08/28/2016 08:23:04 08/28/2016 23:59:59 [facility] Outpatient
--- OUTSIDE RECORDS SUMMARY | 2018-09-10 08:32 | XMS REPORT | CCD ---
Author Author [facility] Address [address] [place] [address] Phone Care Team Providers Care Soc Analyst Name Role Phone PP Unavailable CCM Unavailable Summary Purpose Interface Exchange Insurance Providers Payer name Policy type / Coverage type Covered libertarian ID Effective Begin Date Effective End Date Blue Cross [facility] Cross/[facility] [id number] Unknown Unknown Family history Daughter Diagnosis Age At Onset Asthma Unknown Father Diagnosis Age At Onset Cancer Unknown Mother Diagnosis Age At Onset Hyperlipidemia Unknown Social History Social History Element Codes Description Effective Dates Marital status Unknown 04/30/2015 Number of children Unknown 3 04/30/[address]: 009991428 Never smoker 04/30/[address]: 815344289 Never drinks alcohol 04/30/2015 Allergies, Adverse Reactions, [...] Instructions Augmentin 500 mg-125 mg tablet RxNorm: 208237 1 Tablet(s) PO TID 03/16/2018 03/22/2018 Active take with probiotic BID prednisone 20 mg tablet RxNorm: 486272 2 Tablet(s) PO daily to equil 40mg 02/17/2017 02/21/2017 Inactive prednisone 20 mg tablet RxNorm: 821027 2 Tablet(s) PO daily 02/17/2017 02/16/2017 Inactive Augmentin 500 mg-125 mg tablet RxNorm: 817638 1 Tablet(s) PO TID 02/17/2017 02/23/2017 Inactive take with probiotic BID Kenalog 40 mg/mL suspension for injection RxNorm: 8010838 Milliliter(s) Inj 02/02/2017 02/02/2017 Inactive Zithromax Z-Everardo 250 mg tablet RxNorm: 900482 1 Tablet(s) PO UD 02/02/2017 03/15/2018 Inactive Kenalog 40 mg/mL suspension for injection RxNorm: 3618480 1 Milliliter(s) Inj 05/13/2016 05/13/2016 Inactive Phenergan with Codeine Syrup RxNorm: 5-10 Milliliter(s) PO QID as needed 05/13/2016 03/15/2018 Inactive Augmentin 500 mg-125 mg tablet RxNorm: 027518 1 Tablet(s) PO TID 05/13/2016 05/19/2016 Inactive Ventolin HFA 90 mcg/actuation aerosol inhaler RxNorm: 072390 1 Puff(s) INH PRN 05/06/2016 03/15/2018 Inactive Augmentin 500 mg-125 mg tablet RxNorm: 730831 1 Tablet(s) PO TID 09/27/2015 10/03/2015 Inactive Augmentin 500 mg-125 mg tablet RxNorm: 351648 1 Tablet(s) PO TID 09/27/2015 09/26/2015 Inactive Bactrim DS 800 mg-160 mg tablet RxNorm: 615660 1 Tablet(s) PO BID 09/21/2015 09/27/2015 Inactive Sprintec (28) 0.25 mg-35 mcg tablet RxNorm: 264179 1 Tablet(s) PO daily 04/30/2015 05/29/2015 Inactive Questran 4 gram oral powder RxNorm: 774162 2 Gram(s) PO daily 04/30/2015 05/29/2015 Inactive Ventolin HFA 90 mcg/actuation aerosol inhaler RxNorm: 879760 1 Puff(s) INH PRN No Start Date 05/05/2016 Inactive Medication Administered Medication Codes Instructions Start Date Status Kenalog 40 mg/mL suspension for injection RxNorm: 1005549 Milliliter 02/02/2017 No longer Active Kenalog 40 mg/mL suspension for injection RxNorm: 8399766 1Milliliter 05/13/2016 No longer Active Immunizations Vaccine [...] NO Growth Day 1 09/24/2015 Comp Metabolic Epk473 NA 138 mEq/L 05/02/2015 Comp Metabolic Dmh503 K 3.8 mEq/L 05/02/2015 Comp Metabolic Jrg083 CL 106 mEq/L 05/02/2015 Comp Metabolic Bqi612 CO2 24.0 mEq/L 05/02/2015 Comp Metabolic Klj384 ANION GAP 12 05/02/2015 Comp Metabolic Ekv127 GLUCOSE 102 mg/dL 05/02/2015 Comp Metabolic Gza355 Creat 0.9 mg/dL 05/02/2015 Comp Metabolic Hae150 eGFR 74 ml/min/1.73m2 05/02/2015 Comp Metabolic Nak011 BUN 14 mg/dL 05/02/2015 Comp Metabolic Cjx414 B/C Ratio 15.9 Ratio 05/02/2015 Comp Metabolic Ckv369 CALCIUM 9.0 mg/dL 05/02/2015 Comp Metabolic Ccn592 ALK PHOS 40 U/L 05/02/2015 Comp Metabolic Pqj424 AST(SGOT) 14 U/L 05/02/2015 Comp Metabolic Ytf126 ALT(SGPT) 9 U/L 05/02/2015 Comp Metabolic Gua405 BILI T 0.6 mg/dL 05/02/2015 Comp Metabolic Wvd330 ALBUMIN 4.2 g/dL 05/02/2015 Comp Metabolic Rli848 TPRO 6.5 g/dL 05/02/2015 Comp Metabolic Txv982 GLOB 2.3 g/dL 05/02/2015 Comp Metabolic Tbj543 A/G Ratio 1.8 Ratio 05/02/2015 Comp Metabolic Rve273 Osmo 276 mOsmo 05/02/2015 Cbc With Differential [...] 31.0 pg 05/02/2015 Cbc With Differential Ord2 [place]% 6.1 % 05/02/2015 Cbc With Differential Ord2 [...] 2.18 K/ul 05/02/2015 Cbc With Differential Ord2 [place] ABS# 0.5 K/ul 05/02/2015 Cbc With Differential [...] Codes Date URINALYSIS NONAUTO W/O SCOPE CPT-4: 76264 03/04/2017 TRIAMCINOLONE ACET INJ NOS CPT-4: J3301 02/02/2017 TRIAMCINOLONE ACET INJ NOS CPT-4: J3301 05/13/2016 Vital Signs Date Vital 03/16/2018 Blood Pressure 1: 114/80 Code: 8480-6 BMI: 26.5 Code: 49920-0 Heart Rate 1: 82 bpm Height: 5'5" SpO2: 98% Weight: 159 lbs 04/24/2017 Blood Pressure 1: 130/76 Code: 8480-6 BMI: 26.0 Code: 83826-4 Heart Rate 1: 75 bpm Height: 5'5" SpO2: 99% Weight: 156 lbs 02/02/2017 Blood Pressure 1: 128/74 Code: 8480-6 BMI: 26.0 Code: 52348-6 Heart Rate 1: 76 bpm Height: 5'5" SpO2: 98% Temperature: 37.6 (C) / 99.6 (F) Weight: 156 lbs 05/13/2016 Blood Pressure 1: 138/80 Code: 8480-6 BMI: 26.0 Code: 77973-5 Heart Rate 1: 83 bpm Height: 5'5" SpO2: 97% Temperature: 37.1 (C) / 98.7 (F) Weight: 156 lbs 10/11/2015 Blood Pressure 1: 126/72 Code: 8480-6 Heart Rate 1: 80 bpm Height: 5'5" SpO2: 99% Weight: 09/27/2015 Blood Pressure 1: 126/68 Code: 8480-6 BMI: 26.0 Code: 29895-8 Heart Rate 1: 70 bpm Height: 5'5" SpO2: 99% Weight: 156 lbs 09/21/2015 Blood Pressure 1: 138/72 Code: 8480-6 BMI: 26.0 Code: 15182-8 Heart Rate 1: 81 bpm Height: 5'5" SpO2: 98% Weight: 156 lbs 05/29/2015 Blood Pressure 1: 126/62 Code: 8480-6 BMI: 26.1 Code: 02635-2 Heart Rate 1: 83 bpm Height: 5'5" SpO2: 96% Weight: 157 lbs 04/30/2015 Blood Pressure 1: 110/70 Code: 8480-6 BMI: 26.1 Code: 30478-8 Heart Rate 1: 80 bpm Height: 5'5" [...] data Encounters Encounter Performer Location Codes Date 13005 EST. PATIENT, LEVEL III Diagnosis: Impacted cerumen, bilateral[ICD10: H61.23] Diagnosis: Acute serous otitis media, left ear[ICD10: H65.02] Merline Leon MD, [facility] CPT-4: 31551 03/16/2018 63648 EST. PATIENT, LEVEL IV Diagnosis: Left upper quadrant pain[ICD10: R10.12] Merline Leon MD, [facility] CPT-4: 95257 04/24/2017 47222 EST. PATIENT, LEVEL III Diagnosis: Acute laryngopharyngitis[ICD10: J06.0] Diagnosis: Other allergic rhinitis[ICD10: J30.89] Merline Leon MD, [facility] CPT- 4: 56984 02/02/2017 17140 EST. PATIENT, LEVEL IV Diagnosis: Acute laryngopharyngitis[ICD10: J06.0] Diagnosis: Other acute sinusitis[ICD10: J01.80] Diagnosis: Other allergic rhinitis[ICD10: J30.89] Merline Leon MD, [facility] CPT- 4: 88067 05/13/2016 47143 EST. PATIENT, LEVEL IV Diagnosis: Strain of other muscle(s) and tendon(s) at lower leg level, right leg, initial encounter[ICD10: S86.811A] Merline Leon MD, [facility] CPT-4: 29938 10/11/2015 17289 EST. PATIENT, LEVEL III Diagnosis: Dysuria[ICD10: R30.0] Diagnosis: Right upper quadrant pain[ICD10: R10.11] DAT Spears MD CPT-4: 82685 09/27/2015 28512 EST. PATIENT, LEVEL III Diagnosis: Dysuria[ICD10: R30.0] Merline Leon MD [facility] CPT-4: 04637 09/21/2015 ([id number]) 09843 EST. 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] Diagnosis: Noninfective gastroenteritis and colitis, unspecified[ICD10: K52.9] Ioana Leon MD, [facility] CPT-4: 15338 05/29/2015 ([id number]) OFFICE VISIT, NEW - LEVEL 3 Diagnosis: Nontoxic multinodular goiter[ICD10: E04.2] Diagnosis: Noninfective gastroenteritis and colitis, unspecified[ICD10: K52.9] Ioana Leon MD, [facility] CPT-4: 25369 04/30/2015 Plan of Care Planned Activity Notes [...] removal process. 03/16/2018 Appointment: Merline Matta WPtel: [address] [place], [place] [id number] (15 min) Moderate 03/16/2018 Patient Education: Patient Medication Summary Completed 03/16/2018 Care Plan: X-RAY EXAM OF ABDOMEN LOINC : 40836-1 Pending 04/26/2017 Visit Plan: Left flank pain [...] concerns. 04/24/2017 [facility]ment[facility] [address] [phone] ([facility] min) Moderate 04/24/2017 Patient Education: Patient [...] allergy spray. 02/02/2017 Appointment: [facility] [phone] [phone] (15 min) Moderate 02/02/2017 Patient Education: Patient [...] allergy spray. 05/13/2016 Appointment: Merline Matta WPtel: [address] [place], [place] [phone] (15 min) Moderate 05/13/2016 Patient Education: Patient [...] concerns. 10/11/2015 Appointment: [facility] [phone] [id number] [place] (30 min) Complex 10/11/2015 Patient Education: Patient Medication Summary Completed 10/11/2015 Visit Plan: Right flank pain - pt states that she feels like she still has a uti - will repeat UA C&S if indicated - will order KUB, will treat pending results. 09/27/2015 Appointment: [facility] [phone] [id number] [place] (30 min) Complex 09/27/2015 Patient Education: [...] Education: Obesity Completed 09/21/2015 Visit Plan: Thyroid zynrtxi-mudsgs-djgfcw ultrasound in 6 months Chronic diarrhea-significantly improved-continue questran 05/29/2015 Visit Plan: Thyroid ldkfkij-inhdkh-wqclog ultrasound in 6-12 months-minimal change Chronic diarrhea-significantly [...] worsen, or with any concerns. . Thyroid qxxlshh-akhswk-qyzlwn ultrasound in 6 months Chronic diarrhea-significantly improved-continue questran . Thyroid cbbjudq-pikkak-khbyka ultrasound in 6-12 months-minimal change Chronic diarrhea-significantly [...]
[2018-09-10] MEDS ORDERED: LACTATED RINGERS 1,000 ML IV ONE (08:42)
[2018-09-10] MEDS ORDERED: HYDROcodone/APAP 5 MG/325 MG (LORTAB) TAB PO ONE (08:45)
[2018-09-10] MEDS ORDERED: ACHD5005 PO (08:49)
[2018-09-10] MEDS ORDERED: CEPH500T PO (08:49)
--- NOTE | 2018-09-10 09:03 | Diagnostic Imaging Report ---
INDICATION: Abdominal pain KUB obtained at 8:11 a.m. and is compared to 09/27/2015. Abdominal bowel gas pattern is unremarkable. There is no sign of obstruction or ileus. There are no suspicious calcifications. IMPRESSION: Unremarkable abdominal film. The left UVJ stone visualized on the CT study done earlier today is not visible on this study. Dictated by: Dictated on workstation # [id number]
[2018-09-10 09:43] VITALS: BP 129/74
== END 2018-09-10 09:43 | disposition home or self-care (01) ==
LOC: EDUNIT# 06:47 → ER 06:49
DX: N13.2 Hydronephrosis with renal and ureteral calculous obstruction (principal); J45.990 Exercise induced bronchospasm
CPT/HCPCS: 36415; 74018; 74176; 80053; 81000; 84703; 85025; 96361; 96374; 96375; 96376

== ENCOUNTER → 2018-09-13 | Outpatient (CLI) | payer BC ==
[~2018-09-13] MED LIST changes: +ACHD5005 PO; +CEPH500T PO
--- NOTE | 2018-09-13 15:02 | Diagnostic Imaging Report ---
INDICATION: Routine screening. COMPARISON: 09/10/2017 and 05/23/2016. TECHNIQUE: 2D and 3D bilateral screening mammography was performed with CAD. FINDINGS: Both breasts are heterogeneously dense, limiting the sensitivity of mammography. Benign calcifications in both breasts are again noted. No dominant mass or malignant appearing microcalcifications are seen. The axillae are unremarkable. IMPRESSION: No mammographic features suspicious for malignancy are identified. ACR BI-RADS Category 2: Benign findings. Result letter will be mailed to the patient. Note: At least 10% of breast cancer is not imaged by mammography. Dictated by: Dictated on workstation # [id number]
== END ==
LOC: RAD 07:24
PROVIDERS: ATTEND Obstetrics & Gynecology
DX: Z12.31 Encounter for screening mammogram for malignant neoplasm of breast (principal)
CPT/HCPCS: 77067

== ENCOUNTER → 2019-06-24 | Outpatient (CLI) | payer BC ==
[2019-06-24 14:11] LABS: BASOPHILS % (AUTO) 1 % (0-10); EOSINOPHILS % (AUTO) 0 % (0-10); HEMATOCRIT 43 % (35-52); HEMOGLOBIN 14.4 G/DL (11.5-16.0); LYMPHOCYTES # (AUTO) 1.8 X 10^3 (1.0-4.0); LYMPHOCYTES % (AUTO) 26 % (12-44); MEAN CORPUSCULAR HEMOGLOBIN 31 PG (25-34); MEAN CORPUSCULAR HGB CONC 34 G/DL (32-36); MEAN CORPUSCULAR VOLUME 91 FL (80-99); MEAN PLATELET VOLUME 9.5 FL (7.4-10.4); MONOCYTES # (AUTO) 0.5 X 10^3 (0.0-1.0); MONOCYTES % (AUTO) 8 % (0-12); NEUTROPHILS # (AUTO) 4.5 X 10^3 (1.8-7.8); NEUTROPHILS % (AUTO) 65 % (42-75); PLATELET COUNT 215 10^3/uL (130-400); RED CELL DISTRIBUTION WIDTH 12.8 % (10.0-14.5); WHITE BLOOD COUNT 6.9 10^3/uL (4.3-11.0)
[2019-06-24 14:29] LABS: ALANINE AMINOTRANSFERASE 17 U/L (0-55); ALBUMIN 4.2 GM/DL (3.2-4.5); ALKALINE PHOSPHATASE 48 U/L (40-136); BILIRUBIN,TOTAL 0.6 MG/DL (0.1-1.0); BUN/CREATININE RATIO 16; CALCIUM 9.5 MG/DL (8.5-10.1); CARBON DIOXIDE 24 MMOL/L (21-32); CHLORIDE 108 MMOL/L (98-107); CREATININE SERUM 0.83 MG/DL (0.60-1.30); GFR ESTIMATED > 60; GLUCOSE 124 MG/DL (70-105); POTASSIUM 3.6 MMOL/L (3.6-5.0); SODIUM 141 MMOL/L (135-145); TOTAL PROTEIN 6.9 GM/DL (6.4-8.2)
== END ==
LOC: LAB 13:59
PROVIDERS: ATTEND Nurse Practitioner Family
DX: R06.00 Dyspnea, unspecified (principal); R00.2 Palpitations
CPT/HCPCS: 36415; 80053; 85025; 85379

== ENCOUNTER 2019-07-04 07:44 | Outpatient (RCR) | payer BC | END 2019-10-02 | disposition home or self-care (01) | LOC: CARD 07:44 | PROVIDERS: ATTEND Nurse Practitioner Family | DX: R06.00 Dyspnea, unspecified (principal); R00.2 Palpitations; R00.1 Bradycardia, unspecified | CPT/HCPCS: 93225; 93226 ==

== ENCOUNTER → 2019-07-13 | Outpatient (CLI) | payer BC ==
--- NOTE | 2019-07-13 11:11 | Diagnostic Imaging Report ---
PROCEDURE: US Thyroid. TECHNIQUE: Multiple Real-time grayscale images were obtained of the thyroid in various projections. INDICATION: Thyroid nodule. COMPARISON: 05/14/2015. FINDINGS: The right thyroid lobe is 5.0 x 1.6 x 2.1 cm and mildly increased in size, previously 4.1 x 1.5 x 1.8 cm. The circumscribed well-defined hypoechoic nodules in the right thyroid lobe measure 1 cm and 7 mm in maximal dimensions, previously 9 mm and 6 mm respectively, minimally increased. The left thyroid lobe is 4.4 x 1.6 x 1.5 cm and not significantly changed in size. A hypoechoic well-defined lower pole nodule measuring 1.1 cm previously measured 8 mm, slightly increased. An upper pole nodule at 8 mm is unchanged. No new, dominant, or suspicious mass. IMPRESSION: Slight increased thyroid volume in the right lobe. The small benign-appearing nodules show no significant change from the comparison of 4 years earlier. Dictated by: Dictated on workstation # [id number]
== END ==
LOC: RAD 09:37
PROVIDERS: ATTEND Nurse Practitioner Family
DX: E04.1 Nontoxic single thyroid nodule (principal)
CPT/HCPCS: 76536

== ENCOUNTER 2019-08-08 05:48 | Outpatient (RCR) | payer BC ==
[~2019-08-08] VITALS: Ht 165 cm; Wt 65.4 kg
== END 2019-08-08 15:06 | disposition home or self-care (01) ==
LOC: PREOP 05:48
PROVIDERS: ATTEND Internal Medicine
DX: Z01.818 Encounter for other preprocedural examination (principal); Z11.59 Encounter for screening for other viral diseases
CPT/HCPCS: 87635

== ENCOUNTER 2019-08-12 07:04 | Day surgery (SDC) | payer BC ==
--- NOTE | 2019-08-03 07:26 | HISTORY AND PHYSICAL ---
DATE OF SERVICE: COLONOSCOPY HISTORY AND PHYSICAL Dr. Rea and Dr. Leon are responsible for referrals. HISTORY OF PRESENT ILLNESS: The patient is a 49-year-old white female referred by Dr. Rea for screening colonoscopy. I had performed colonoscopy on her 15 years ago, at which time she had one diminutive tubular adenoma removed from the rectum. No other abnormalities were noted. She reports one grandfather of complications of colon cancer in his 60s. She is not aware of any other history of colon cancer. She denies any recent change in bowel habit. Denies abdominal pain, bloating, bright red blood per rectum or melena. She has been feeling well and is physically active. PAST MEDICAL HISTORY: Noncontributory. She takes no medication other than some past nephrolithiasis and a history of left superficial thrombophlebitis in 2019 when she was on control and control was discontinued. She has no reported history of DVT or pulmonary embolism. PAST SURGICAL HISTORY: Significant for cholecystectomy in [address] Mercado. She thought that she may have had a colonoscopy at that time, but there was no record of this, only her cholecystectomy per Dr. Mercado. FAMILY HISTORY: Dad of brain tumor at the age of 48. Mother is still living at 75 with history of arrhythmia. 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 REVIEW OF SYSTEMS: CONSTITUTIONAL: She has had no night sweats, chills, fever or change in weight. GASTROINTESTINAL: As noted in the HPI. PULMONARY: She denies any problems with cough or wheezing. CARDIOVASCULAR: She denies dyspnea on exertion, chest discomfort, orthopnea, PND or pedal edema. PHYSICAL EXAMINATION: GENERAL: Reveals a white female, appears to be in no acute distress. VITAL SIGNS: Initial blood pressure 150/80, when repeated 130/76, weight 147 pounds. HEENT: Remarkable, Mallampati 1 oropharyngeal configuration. CHEST: Clear. CARDIOVASCULAR: Reveals a regular rate and rhythm without murmur, S3 or S4. ABDOMEN: Soft, supple without mass, organomegaly or tenderness. A well-healed small umbilical scar noted. No bruits appreciated. EXTREMITIES: Reveal no cyanosis, clubbing or edema. Electronic medical record now was reviewed. No evidence for colonoscopy since 2004. ASSESSMENT AND PLAN: 1. The patient will be set up for screening colonoscopy on 08/12/2019. Prep instructions with the Suprep kit were given and questions were answered. 2. She had had a Holter monitor report ordered at the beginning of June, but she had not heard the results of. On reviewing her record, she had some sinus bradycardia while sleeping only with rare premature ventricular contractions and no complex arrhythmias were noted for which she was reassured. I thank you for the referral of this pleasant lady. Job ID: [id number] DocumentID: [id number] Dictated Date: 07/28/2019 16:05:11 Overhead Distribution Engineer Date: 07/28/2019 16:38:15 Dictated By: JACIEL HUTTON MD MTDD
[2019-08-12] MEDS ORDERED: LACTATED RINGERS 1,000 ML IV ONE (07:06)
--- OUTSIDE RECORDS SUMMARY | 2019-08-12 07:20 | XMS REPORT | CCD ---
Author Author Tiffanie Valenzuela Organization Chari Leon MD, 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 Name Role Phone PP Unavailable CCM Unavailable Summary Purpose Interface Exchange Insurance Providers Payer name Policy type / Coverage type Covered democrat ID Effective Begin Date Effective End Date Blue Cross Blue Shield [facility] e Cross/Blue Shield [id number] Unknown Unknown Family history Daughter Diagnosis Age At Onset Asthma Unknown Father Diagnosis Age At Onset Cancer Unknown Mother Diagnosis Age At Onset Hyperlipidemia Unknown Social History Social History Element Codes Description Effective Dates Marital status Unknown D ivorced 04/30/2015 Number of children Unknown 3 04/30/[address]: 096602264 Never smoker 04/30/[address]: 148959933 Never drinks alcohol 04/30/2015 Allergies, Adverse Reactions, Alerts Substance Reaction Codes Entered Date Inactivated Date Status * NO KNOWN DRUG SAMSON RGIES Unknown 04/30/2015 No Inactive Date Active Past Medical History Illness Codes Condition Status Onset Date Resolved Date Encounter for screen ing mammogram for malignant neoplasm of breast ICD-9: V76.10 ICD-10: Z12.31 Active 09/14/2018 Unknown Polycystic ovarian s yndrome ICD-9: 256.4 ICD-10: E28.2 Active 05/19/2018 Unknown Phlebitis and thromb ophlebitis of superficial vessels of left lower extremity ICD-9: 451.0 ICD-10: I80.02 Active 05/06/2018 Unknown Pain in thoracic spine ICD-9: 724.1 ICD-10: M54.6 Active 2018 Unknown Acute serous otitis media, left ear ICD-9: 381.01 ICD-10: H65.02 Active 03/16/2018 Unknown Impacted cerumen, bi lateral ICD-9: 380.4 ICD-10: H61.23 Active 03/16/2018 Unknown Left upper quadrant pain ICD-9: 789.02 ICD-10: R10.12 Active 04/24/2017 Unknown Dysuria ICD-9: 788.1 ICD-10: R30.0 Active 09/26/2015 Unknown Acute laryngopharyng itis ICD-9: 465.0 ICD-10: J06.0 Active 05/13/2016 Unknown Other allergic rhinitis ICD-9: 477.8 ICD-10: J30.89 Active 05/13/2016 Unknown Other acute sinusitis ICD-9: 461.8 ICD-10: J01.80 Active 05/13/2016 Unknown Strain of other musc le(s) and tendon(s) at lower leg level, right leg, initial encounter ICD-9: 844.8 ICD-10: S86.811A Active 10/10/2015 Unknown Right upper quadrant pain ICD-9: 789.01 ICD-10: R10.11 Active 09/26/2015 Unknown Noninfective gastroe nteritis and colitis, unspecified ICD-9: 787.91 ICD-10: K52.9 Active 05/28/2015 Unknown Nontoxic multinodula r goiter ICD-9: 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 ICD-10: E04.2 Active 05/28/2015 Unknown Problems Condition Codes Effectiv e Dates Condition Status Encounter for screen ing mammogram for malignant neoplasm of breast ICD-9: V76.10 ICD-10: Z12.31 09/14/2018 Active Polycystic ovarian s yndrome ICD-9: 256.4 ICD-10: E28.2 05/19/2018 Active Phlebitis and thromb ophlebitis of superficial vessels of left lower extremity ICD-9: 451.0 ICD-10: I80.02 05/06/2018 Active Pain in thoracic spine ICD-9: 724.1 ICD-10: M54.6 2018 Active Acute serous otitis media, left ear ICD-9: 381.01 ICD-10: H65.02 03/16/2018 Active Impacted cerumen, bi lateral ICD-9: 380.4 ICD-10: H61.23 03/16/2018 Active Left upper quadrant pain ICD-9: 789.02 ICD-10: R10.12 04/24/2017 Active Dysuria ICD-9: 788.1 ICD-10: R30.0 09/26/2015 Active Acute laryngopharyng itis ICD-9: 465.0 ICD-10: J06.0 05/13/2016 Active Other allergic rhinitis ICD-9: 477.8 ICD-10: J30.89 05/13/2016 Active Other acute sinusitis ICD-9: 461.8 ICD-10: J01.80 05/13/2016 Active Strain of other musc le(s) and tendon(s) at lower leg level, right leg, initial encounter ICD-9: 844.8 ICD-10: S86.811A 10/10/2015 Active Right upper quadrant pain ICD-9: 789.01 ICD-10: R10.11 09/26/2015 Active Noninfective gastroe nteritis and colitis, unspecified ICD-9: 787.91 ICD-10: K52.9 05/28/2015 Active Nontoxic multinodula r goiter ICD-9: 241.1 ICD-10: E04.2 05/28/2015 Active Medications Medication Codes Instruc tions Start Date Stop Date Sta tus Fill Instructions cephalexin 500 mg ta blet RxNorm: 670591 1 Capsule(s) PO TID 05/06/2018 05/15/2018 Inactive cyclobenzaprine 5 mg tablet RxNorm: 315324 1 Tablet(s) PO TID as needed muscle spasms 2018 05/08/2018 Inactive Augmentin 500 mg-125 mg tablet RxNorm: 820798 1 Tablet(s) PO TID 03/16/2018 03/22/2018 Inactive take with probiotic BID prednisone 20 mg tablet RxNorm: 648487 2 Tablet(s) PO daily to equil 40mg 02/17/2017 02/21/2017 In active prednisone 20 mg tablet RxNorm: 908711 2 Tablet(s) PO daily 02/17/2017 02/16/2017 Inactive Augmentin 500 mg-125 mg tablet RxNorm: 666019 1 Tablet(s) PO TID 02/17/2017 02/23/2017 Inactive take with probiotic BID Kenalog 40 mg/mL tip pension for injection RxNorm: 3599784 Milliliter(s) Inj 02/02/2017 02/02/2017 In active Zithromax Z-Everardo 250 mg tablet RxNorm: 711801 1 Tablet(s) PO UD 02/02/2017 03/15/2018 Inactive Kenalog 40 mg/mL tip pension for injection RxNorm: 2549878 1 Milliliter(s) Inj 05/13/2016 05/13/2016 In active Phenergan with Codei ne Syrup RxNorm: 5-10 Milliliter(s) PO QID a s needed 05/13/2016 03/15/2018 In active Augmentin 500 mg-125 mg tablet RxNorm: 439967 1 Tablet(s) PO TID 05/13/2016 05/19/2016 Inactive Ventolin HFA 90 mcg/ actuation aerosol inhaler RxNorm: 616411 1 Puff(s) INH PRN 05/06/2016 03/15/2018 In active Augmentin 500 mg-125 mg tablet RxNorm: 283738 1 Tablet(s) PO TID 09/27/2015 10/03/2015 Inactive Augmentin 500 mg-125 mg tablet RxNorm: 723822 1 Tablet(s) PO TID 09/27/2015 09/26/2015 Inactive Bactrim DS 800 mg-16 0 mg tablet RxNorm: 983746 1 Tablet(s) PO BID 09/21/2015 09/27/2015 Inactive Questran 4 gram oral powder RxNorm: 043552 2 Gram(s) PO daily 04/30/2015 05/29/2015 Inactive Sprintec (28) 0.25 m g-35 mcg tablet RxNorm: 803206 1 Tablet(s) PO daily 04/30/2015 05/05/2018 In active Ventolin HFA 90 mcg/ actuation aerosol inhaler RxNorm: 739968 1 Puff(s) INH PRN No Start Date 05/05/2016 Inactive Medication Administered Medication Codes Instruc tions Start Date Status Kenalog 40 mg/mL suspension for injection RxNorm: 3639208 Milliliter 02/02/2017 No longer Active Kenalog 40 mg/mL suspension for injection RxNorm: 0403422 1Milliliter 05/13/2016 N o longer Active Immunizations Vaccine Codes Date Status Influenza CVX: 141 12/31 completed Assessments Condition Codes Effectiv e Dates Encounter for screening mammogram for ma lignant neoplasm of breast ICD-10: Z12.31 ICD-9: V76.10 09/14/2018 Polycystic ovarian syndrome ICD-10: E28.2 ICD-9: 256.4 05/19/2018 Phlebitis and thrombophlebitis of superf icial vessels of left lower extremity ICD-10: I80.02 ICD-9: 451.0 05/06/2018 Pain in thoracic spine ICD-10: M54.6 ICD-9: 724.1 2018 Acute serous otitis media, left ear ICD-10: H65.02 ICD-9: 381.01 03/16/2018 Impacted cerumen, bilateral ICD-10: H61.23 ICD-9: 380.4 03/16/2018 Left upper quadrant pain ICD-10: R10 .12 ICD-9: 789.02 04/24/2017 Dysuria ICD-10: R30.0 ICD-9: 788.1 03/04/2017 Acute laryngopharyngitis ICD-10: J06 .0 ICD-9: 465.0 02/02/2017 Other allergic rhinitis ICD-10: J30. 89 ICD-9: 477.8 02/02/2017 Other acute sinusitis ICD-10: J01.80 ICD-9: 461.8 05/13/2016 Strain of other muscle(s) and tendon(s) at lower leg level, right leg, initial encounter ICD-10: S86.811A ICD-9: 844.8 10/11/2015 Right upper quadrant pain ICD-10: R1 0.11 ICD-9: 789.01 09/27/2015 Nontoxic multinodular goiter ICD-10: [...] Item Code Result Date Urine Culture Ucult Prel iminary NO Growth Day 1 09/28 Urine Culture Ucult Comp lete Growth of aerobe sent to ref lab 09/29/2015 Urine Culture Ucult Comp lete NO Growth Day 2 09/23 Urine Culture Ucult Prel iminary NO Growth Day 1 09/23 Comp Metabolic Dzy520 NA 138 mEq/L 05/02/2015 Comp Metabolic Vvq989 K 3.8 mEq/L 05/02/2015 Comp Metabolic Ghw471 CL 106 mEq/L 05/02/2015 Comp Metabolic Roz562 CO2 24.0 mEq/L 05/02/2015 Comp Metabolic Vef992 AN ION GAP 12 05/02/2015 Comp Metabolic Dac347 GL UCOSE 102 mg/dL 05/02/2015 Comp Metabolic Tap832 Cr eat 0.9 mg/dL 05/02/2015 Comp Metabolic Twd462 eG FR 74 ml/min/1.73m2 05/01 Comp Metabolic Xyp006 BUN 14 mg/dL 05/02/2015 Comp Metabolic Zkd213 B/ C Ratio 15.9 Ratio 05/02/2015 Comp Metabolic Bcy948 CA LCIUM 9.0 mg/dL 05/02/2015 Comp Metabolic Mso710 AL K PHOS 40 U/L 05/02/2015 Comp Metabolic Crp456 T(SGOT) 14 U/L 05/02/2015 Comp Metabolic Svf162 AL T(SGPT) 9 U/L 05/02/2015 Comp Metabolic Ibq171 BI LI T 0.6 mg/dL 05/02/2015 Comp Metabolic Wrc327 AL BUMIN 4.2 g/dL 05/02/2015 Comp Metabolic Vqo880 TP RO 6.5 g/dL 05/02/2015 Comp Metabolic Cbg917 GL OB 2.3 g/dL 05/02/2015 Comp Metabolic Jax688 A/ G Ratio 1.8 Ratio 05/02/2015 Comp Metabolic Kaa264 Os mo 276 mOsmo 05/02/2015 Cbc With Differential Ord2 [...] 31.0 pg 05/02/2015 Cbc With Differential Ord2 [place]% 6.1 % 05/02/2015 Cbc With Differential Ord2 [...] 2.18 K/ul 05/02/2015 Cbc With Differential Ord2 [place] ABS# 0.5 K/ul 05/02/2015 Cbc With Differential Ord2 [place] ABS# 0.1 K/ul 05/02/2015 Cbc With Differential Ord2 Baso ABS# 0.0 K/ul 05/02/2015 Cbc With Differential Ord2 New Analyzer Notice Please note new ref ranges s tarting 03-14-2015 due to implemntation of new five [...] No chest tightness 05/19/2018 Respiratory No cough Gastrointestinal No abdominal pain 05/19/2018 Gastrointestinal No nausea 05/19/2018 Psychiatric No anxiety 0 05/19/2018 Constitutional recent illness 05/06/2018 Constitutional No fatigue 05/06/2018 Constitutional No fever 05/06/2018 Cardiovascular No chest pain/pressure 05/06/2018 Cardiovascular No dyspnea 05/06/2018 Cardiovascular No fatigue 05/06/2018 Respiratory No cough 08/2018 Respiratory No chest tightness 05/06/2018 Gastrointestinal No abdominal pain 05/06/2018 Gastrointestinal No nausea 05/06/2018 Psychiatric No anxiety 0 05/06/2018 Cardiovascular edema 08/2018 Constitutional No recent illness 2018 Constitutional No chills 2018 Constitutional No fever 2018 Eyes No eye erythema 06/2018 Ears/Nose/Throat/Neck No nasal discharge 2018 Cardiovascular No chest pain/pressure 2018 Cardiovascular No dyspnea 2018 Respiratory No cough 06/2018 Respiratory No dyspnea 0 2018 Musculoskeletal joint complaint 2018 Neurologic No alteration of consciousness 2018 Neurologic No mental status change 2018 Genitourinary/Nephrology flank pain 2018 Genitourinary/Nephrology No dysuria 2018 Constitutional No recent illness 03/16/2018 Constitutional No chills 03/16/2018 Constitutional No diaphoresis 03/16/2018 Constitutional No fever 03/16/2018 Eyes No eye erythema Ears/Nose/Throat/Neck nasal allergies 03/16/2018 Ears/Nose/Throat/Neck nasal discharge 03/16/2018 Ears/Nose/Throat/Neck otalgia 03/16/2018 Ears/Nose/Throat/Neck postnasal drip 03/16/2018 Cardiovascular No chest pain/pressure 03/16/2018 Cardiovascular No dyspnea 03/16/2018 Ears/Nose/Throat/Neck cerumen 03/16/2018 Respiratory No cough Respiratory No chest congestion 03/16/2018 Gastrointestinal No abdominal pain 03/16/2018 Neurologic No alteration of consciousness 03/16/2018 Neurologic No mental status change 03/16/2018 Constitutional No recent illness 04/24/2017 Constitutional No chills 04/24/2017 Constitutional No diaphoresis 04/24/2017 Constitutional No fever 04/24/2017 Eyes No eye erythema Ears/Nose/Throat/Neck No nasal discharge 04/24/2017 Cardiovascular No chest pain/pressure 04/24/2017 Cardiovascular No dyspnea 04/24/2017 Respiratory No cough Respiratory No chest congestion 04/24/2017 Gastrointestinal abdominal pain 04/24/2017 Gastrointestinal No constipation 04/24/2017 Gastrointestinal No diarrhea 04/24/2017 Gastrointestinal No odynophagia 04/24/2017 Gastrointestinal No nausea 04/24/2017 Genitourinary/Nephrology No dysuria 04/24/2017 Genitourinary/Nephrology flank pain 04/24/2017 Musculoskeletal back pain 04/24/2017 Dermatologic No rash Neurologic No alteration of consciousness 04/24/2017 Neurologic No mental status change 04/24/2017 Constitutional recent illness 02/02/2017 Constitutional chills Constitutional No diaphoresis 02/02/2017 Constitutional fever 05/2016 Eyes No eye erythema 05/2016 Ears/Nose/Throat/Neck nasal allergies 02/02/2017 Ears/Nose/Throat/Neck nasal discharge 02/02/2017 Ears/Nose/Throat/Neck postnasal drip 02/02/2017 Ears/Nose/Throat/Neck sinus congestion 02/02/2017 Ears/Nose/Throat/Neck sore throat 02/02/2017 Cardiovascular No chest pain/pressure 02/02/2017 Cardiovascular No dyspnea 02/02/2017 Respiratory No chest congestion 02/02/2017 Respiratory cough 2016 Respiratory No dyspnea 1 04/05/2016 Gastrointestinal No constipation 02/02/2017 Gastrointestinal No diarrhea 02/02/2017 Gastrointestinal No nausea 02/02/2017 Gastrointestinal No vomiting 02/02/2017 Dermatologic No rash 05/2016 Neurologic No alteration of consciousness 02/02/2017 Neurologic No mental status change 02/02/2017 Constitutional recent illness 05/13/2016 Constitutional No chills 05/13/2016 Constitutional No diaphoresis 05/13/2016 Constitutional No fever 05/13/2016 Eyes No eye erythema Ears/Nose/Throat/Neck nasal allergies 05/13/2016 Ears/Nose/Throat/Neck nasal discharge 05/13/2016 Ears/Nose/Throat/Neck postnasal drip 05/13/2016 Ears/Nose/Throat/Neck sinus congestion 05/13/2016 Ears/Nose/Throat/Neck sore throat 05/13/2016 Cardiovascular No chest pain/pressure 05/13/2016 Cardiovascular No dyspnea 05/13/2016 Respiratory No chest congestion 05/13/2016 Respiratory cough 2016 Respiratory No dyspnea 0 05/13/2016 Gastrointestinal No constipation 05/13/2016 Gastrointestinal No diarrhea 05/13/2016 Gastrointestinal No nausea 05/13/2016 Gastrointestinal No vomiting 05/13/2016 Dermatologic No rash Neurologic No alteration of consciousness 05/13/2016 Neurologic No mental status change 05/13/2016 Respiratory productive sputum 05/13/2016 Constitutional No fever 10/11/2015 Eyes No vision change Ears/Nose/Throat/Neck No nasal allergies 10/11/2015 Ears/Nose/Throat/Neck No nasal discharge 10/11/2015 Cardiovascular No chest pain/pressure 10/11/2015 Cardiovascular No dyspnea 10/11/2015 Respiratory No cough 01/2016 Neurologic No alteration of consciousness 10/11/2015 Neurologic No mental status change 10/11/2015 Eyes No eye erythema 01/2016 Respiratory No dyspnea 0 10/11/2015 Musculoskeletal muscle weakness 10/11/2015 Constitutional No fever 09/27/2015 Eyes No vision change Ears/Nose/Throat/Neck No nasal allergies 09/27/2015 Cardiovascular No chest pain/pressure 09/27/2015 Respiratory No cough Musculoskeletal No joint complaint 09/27/2015 Ears/Nose/Throat/Neck No nasal discharge 09/27/2015 Cardiovascular No dyspnea 09/27/2015 Genitourinary/Nephrology flank pain 09/27/2015 Genitourinary/Nephrology urinary frequency 09/27/2015 Neurologic No alteration of consciousness 09/27/2015 Neurologic No mental status change 09/27/2015 Constitutional No fever 09/21/2015 Ears/Nose/Throat/Neck No nasal allergies 09/21/2015 Ears/Nose/Throat/Neck No nasal discharge 09/21/2015 Cardiovascular No chest pain/pressure 09/21/2015 Cardiovascular No dyspnea 09/21/2015 Respiratory No cough Genitourinary/Nephrology flank pain 09/21/2015 Genitourinary/Nephrology urinary frequency 09/21/2015 Musculoskeletal No joint complaint 09/21/2015 Neurologic No alteration of consciousness 09/21/2015 Neurologic No mental status change 09/21/2015 Constitutional No diaphoresis 09/21/2015 Constitutional No chills 09/21/2015 Eyes No eye erythema Respiratory No dyspnea 0 09/21/2015 Dermatologic No rash Gastrointestinal No vomiting 09/21/2015 Gastrointestinal No nausea [...] No obesity 05/29/2015 Eyes No vision change Ears/Nose/Throat/Neck No headache 05/29/2015 Ears/Nose/Throat/Neck No nasal allergies 05/29/2015 Ears/Nose/Throat/Neck No nasal discharge 05/29/2015 Ears/Nose/Throat/Neck No otalgia 05/29/2015 Ears/Nose/Throat/Neck No otitis media 05/29/2015 Ears/Nose/Throat/Neck No sinus congestion 05/29/2015 Ears/Nose/Throat/Neck postnasal drip 05/29/2015 Cardiovascular No edema 05/29/2015 Cardiovascular No chest pain/pressure 05/29/2015 Respiratory No cough Respiratory No cigarette smoking 05/29/2015 Respiratory No chest tightness 05/29/2015 Respiratory No chest congestion 05/29/2015 Respiratory No dyspnea on exertion 05/29/2015 Respiratory No dyspnea 0 05/29/2015 Gastrointestinal constipation 05/29/2015 Gastrointestinal diarrhea 05/29/2015 Genitourinary/Nephrology No dysuria 05/29/2015 Musculoskeletal No muscle weakness 05/29/2015 Musculoskeletal No myalgias 05/29/2015 Musculoskeletal No joint complaint 05/29/2015 Dermatologic No sores Dermatologic No rash Psychiatric No depression 05/29/2015 Psychiatric No anxiety 0 05/29/2015 Constitutional No recent illness 04/30/2015 Constitutional No anorexia 04/30/2015 Constitutional No night sweats 04/30/2015 Constitutional No chills 04/30/2015 Constitutional No diaphoresis 04/30/2015 Constitutional No fatigue 04/30/2015 Constitutional No fever 04/30/2015 Constitutional No insomnia 04/30/2015 Constitutional No malaise 04/30/2015 Constitutional No weight loss 04/30/2015 Constitutional No weight gain 04/30/2015 Eyes No eye discharge Eyes No eye erythema Ears/Nose/Throat/Neck No dizziness 04/30/2015 Ears/Nose/Throat/Neck No headache 04/30/2015 Ears/Nose/Throat/Neck No nasal discharge 04/30/2015 Ears/Nose/Throat/Neck No nasal allergies 04/30/2015 Cardiovascular No chest pain/pressure 04/30/2015 Cardiovascular No edema 04/30/2015 Cardiovascular No dyspnea 04/30/2015 Respiratory asthma Respiratory No cough Gastrointestinal abdominal pain 04/30/2015 Gastrointestinal No constipation 04/30/2015 Gastrointestinal diarrhea 04/30/2015 Gastrointestinal No nausea 04/30/2015 Gastrointestinal No vomiting 04/30/2015 Genitourinary/Nephrology No dysuria 04/30/2015 Musculoskeletal No joint complaint 04/30/2015 Dermatologic No rash Neurologic No alteration of consciousness 04/30/2015 Psychiatric No anxiety 0 04/30/2015 Psychiatric No depression 04/30/2015 Endocrine No dry or coarse skin 04/30/2015 Hematologic/Lymphatic No abnormal bl eeding and bruising 04/30/2015 Physical Exam Exam Name System Name It em Name Status Result Effective Dates Notes Full [...] abnormalities 05/19/2018 None Full Exam - General 1995 Constitutional general appearance Overall: well nourished 05/06/2018 None Full Exam - General 1995 Constitutional general appearance Overall: well developed 05/06/2018 [...] 2018 None Full Exam - Orthopedics MS: spine/ri b/pelvis insp & palp - S/R/P Lumbar spine palpation : tender lumbar spinous processes 2018 None Full Exam - Orthopedics MS: spine/ri b/pelvis insp & palp - S/R/P Lumbar spine palpation : tender facet joints 2018 None Full Exam - Orthopedics MS: spine/ri b/pelvis insp & palp - S/R/P Thoracic/lumbar muscles [...] Ears/Nose/Throat otoscopic exam Left external auditory canal: comple te cerumen impaction 03/16/2018 None Full Exam - ENT Ears/Nose/Throat otoscopic exam Right external auditory canal: compl ete cerumen impaction 03/16/2018 None Full Exam - ENT Ears/Nose/Throat otoscopic exam Left tympanic membrane: erythematous 03/16/2018 noted after removal of ce rumen Full Exam - ENT Ears/Nose/Throat otoscopic exam Right tympanic membrane: intact 03/16/2018 None Full Exam - ENT Ears/Nose/Throat otoscopic exam Right tympanic membrane: mobile 03/16/2018 noted after removal of ce rumen Full Exam - ENT Respiratory inspection Overall: normal rate None Full Exam - ENT Respiratory inspection [...] Abdomen abdominal exam Upper quadrant: no rebound tendernes s 04/24/2017 None Full Exam - General 1994 [...] Ears/Nose/Throat otoscopic exam Left tympanic membrane: air-fluid le lucy 02/02/2017 None Full Exam - ENT Ears/Nose/Throat [...] - ENT Respiratory inspection Overall: normal rate 05/2016 None Full Exam - ENT Respiratory auscultation Overall: breath sounds clear bilater ally 02/02/2017 None Full Exam - ENT Cardiovascular [...] Neurologic orientation Overall: oriented to person, place a nd time 02/02/2017 None Full Exam - ENT [...] Ears/Nose/Throat otoscopic exam Left tympanic membrane: air-fluid [place] 05/13/2016 None Full Exam - ENT Ears/Nose/Throat [...] - ENT Respiratory inspection Overall: normal rate None Full Exam - ENT Respiratory auscultation Overall: breath sounds clear bilater ally 05/13/2016 None Full Exam - ENT Cardiovascular [...] Neurologic orientation Overall: oriented to person, place a nd time 05/13/2016 None Full Exam - ENT [...] Abdomen abdominal exam Upper quadrant: non-tender to palpat ion 09/21/2015 None Full Exam - General 1994 Abdomen abdominal exam Upper quadrant: no guarding 09/21/2015 None Full Exam - General 1994 Abdomen abdominal exam Upper quadrant: no rebound tendernes s 09/21/2015 None Full Exam - General 1994 Abdomen abdominal exam Upper quadrant: no mass lesions 09/21/2015 None Full Exam - General 1994 Abdomen abdominal exam Upper quadrant: soft 09/21/2015 None Full Exam - General 1994 Abdomen abdominal exam Lower quadrant: non-tender to palpat ion 09/21/2015 None Full Exam - General 1994 Abdomen abdominal exam Lower quadrant: no guarding 09/21/2015 None Full Exam - General 1994 Abdomen abdominal exam Lower quadrant: no rebound tendernes s 09/21/2015 None Full Exam - General 1994 Abdomen abdominal exam Lower quadrant: no mass lesions 09/21/2015 None Full Exam - General 1994 Abdomen abdominal exam Lower quadrant: soft 09/21/2015 None Full Exam - General 1994 Psychiatric speech Overall: normal quality, no aphasia 09/21/2015 None Full Exam - General 1994 Psychiatric speech Overall: normal quality, quantity, r ate 09/21/2015 None Full Exam - General 1994 [...] None Procedures Procedure Codes Date URINALYSIS NONAUTO W /O SCOPE CPT-4: 64113 03/04/2017 TRIAMCINOLONE ACET I [place] NOS CPT-4: J3301 02/02/2017 TRIAMCINOLONE ACET I [place] NOS CPT-4: J3301 05/13/2016 Vital Signs Date Vital 05/19/2018 Blood Pressure 1: 110/68 Code: 8480-6 BMI: 26.3 Code: 44460-7 Heart Rate 1: 90 bpm Height: 5'5" SpO2: 98% Weight: 158 lbs 05/06/2018 Blood Pressure 1: 132/74 Code: 8480-6 BMI: 26.6 Code: 02153-8 Heart Rate 1: 77 bpm Height: 5'5" SpO2: 96% Weight: 160 lbs 2018 Blood Pressure 1: 145/80 Code: 8480-6 BMI: 26.6 Code: 32767-5 Heart Rate 1: 90 bpm Height: 5'5" SpO2: 99% Weight: 160 lbs 03/16/2018 Blood Pressure 1: 114/80 Code: 8480-6 BMI: 26.5 Code: 60974-0 Heart Rate 1: 82 bpm Height: 5'5" SpO2: 98% Weight: 159 lbs 04/24/2017 Blood Pressure 1: 130/76 Code: 8480-6 BMI: 26.0 Code: 92458-6 Heart Rate 1: 75 bpm Height: 5'5" SpO2: 99% Weight: 156 lbs 02/02/2017 Blood Pressure 1: 128/74 Code: 8480-6 BMI: 26.0 Code: 62311-3 Heart Rate 1: 76 bpm Height: 5'5" SpO2: 98% Temperature: 37.6 (C ) / 99.6 (F) Weight: 156 lbs 05/13/2016 Blood Pressure 1: 138/80 Code: 8480-6 BMI: 26.0 Code: 40980-4 Heart Rate 1: 83 bpm Height: 5'5" SpO2: 97% Temperature: 37.1 (C ) / 98.7 (F) Weight: 156 lbs 10/11/2015 Blood Pressure 1: 126/72 Code: 8480-6 Heart Rate 1: 80 bpm Height: 5'5" SpO2: 99% Weight: 09/27/2015 Blood Pressure 1: 126/68 Code: 8480-6 BMI: 26.0 Code: 86980-3 Heart Rate 1: 70 bpm Height: 5'5" SpO2: 99% Weight: 156 lbs 09/21/2015 Blood Pressure 1: 138/72 Code: 8480-6 BMI: 26.0 Code: 43581-8 Heart Rate 1: 81 bpm Height: 5'5" SpO2: 98% Weight: 156 lbs 05/29/2015 Blood Pressure 1: 126/62 Code: 8480-6 BMI: 26.1 Code: 53850-3 Heart Rate 1: 83 bpm Height: 5'5" SpO2: 96% Weight: 157 lbs 04/30/2015 Blood Pressure 1: 110/70 Code: 8480-6 BMI: 26.1 Code: 95412-1 Heart Rate 1: 80 bpm Height: 5'5" SpO2: 99% Weight: 157 lbs Functional Status No Functional Status data History of Present Illness Symptom Name Status Resu lt Effective Date Notes Location on the left 05/19/2018 None Quality acute 05/19/2018 None Onset of Symptom 3 day s ago 05/19/2018 None Pertinent Findings dec reased range of motion 05/19/2018 None Pertinent Findings tonie n with movement 05/19/2018 None Pertinent Findings red ness 05/19/2018 None Location lumbar-sacral spine 05/19/2018 None Quality intermittent 05/19/2018 None Onset of Symptom 3 day s ago 05/19/2018 None Limitation on Activities moderately limits activities 05/19/2018 None Pertinent Findings wea kness 05/19/2018 None Onset and Resolution r esolved 05/19/2018 None Onset and Resolution r esolved 05/19/2018 None Location on the left 05/06/2018 None Quality acute 05/06/2018 None Onset of Symptom 3 day s ago 05/06/2018 None Pertinent Findings dec reased range of motion 05/06/2018 None Pertinent Findings tonie n with movement 05/06/2018 None Pertinent Findings red ness 05/06/2018 None Location lumbar-sacral spine 05/06/2018 None Quality intermittent 05/06/2018 None Onset and Resolution D enies acute 05/06/2018 None Limitation on Activities moderately limits activities 05/06/2018 None Pertinent Findings wea kness 05/06/2018 None Onset of Symptom 3 day s ago 05/06/2018 None Location on the left 2018 None Quality sharp 2018 None Quality stabbing 2018 None Quality intermittent 2018 None Onset and Resolution s udden in onset 2018 None Onset of Symptom 1 day s ago 2018 None Location on the left 2018 None Quality sharp pain 2018 None Onset and Resolution s udden in onset 2018 None Onset of Symptom 1 day s ago 2018 None Frequency of Episodes daily 2018 None Location both ears 03/16/2018 None Quality acute 03/16/2018 None Onset and Resolution s udden in onset 03/16/2018 None Triggers no known trig gers 03/16/2018 None abdominal pain Location in the LUQ 04/24/2017 None abdominal pain Radiating the flank 04/24/2017 None abdominal pain Quality a dennis 04/24/2017 None abdominal pain Quality c onstant 04/24/2017 None abdominal pain Quality c ramping 04/24/2017 None abdominal pain Onset and Resolution [...] energy level 02/02/2017 None sore throat Location dif fusely 02/02/2017 None sore throat Quality achi ng 02/02/2017 None sore throat Quality cons tant 02/02/2017 None sore throat Quality scra tchy 02/02/2017 None sore throat Onset and Resolution sudden in onset 02/02/2017 None sore throat Onset of Symptom 3 days ago 02/02/2017 None sore throat Frequency of Episodes daily 02/02/2017 None earache Location both ea rs 02/02/2017 None earache Onset and Resolution sudden [...] both sides 05/13/2016 None sore throat Quality achi ng 05/13/2016 None sore throat Quality cons tant 05/13/2016 None sore throat Quality scra tchy 05/13/2016 None sore throat Onset and Resolution [...] right 10/11/2015 None lower leg pain Quality c ramping 10/11/2015 None lower leg pain Quality n umbness 10/11/2015 None lower leg pain Quality s harp pain 10/11/2015 None lower leg pain Quality c onstant 10/11/2015 None lower leg pain Onset and Resolution sudden in onset 10/11/2015 None lower leg pain Onset of Symptom 3 days ago 10/11/2015 None lower leg pain Mechanism of injury low energy 10/11/2015 None flank pain Location on t he left 09/27/2015 None flank pain Radiating the back 09/27/2015 None flank pain Quality aching 09/27/2015 None flank pain Quality const ant 09/27/2015 None flank pain Quality cramp ing 09/27/2015 None flank pain Onset and Resolution sudden in onset 09/27/2015 None flank pain Onset of Symptom 1 days ago 09/27/2015 None flank pain Location on t he left 09/21/2015 None flank pain Radiating the back 09/21/2015 None flank pain Quality cramp ing 09/21/2015 None flank pain Quality aching 09/21/2015 None flank pain Quality const ant 09/21/2015 None flank pain Onset and Resolution sudden in onset 09/21/2015 None flank pain Onset of Symptom 1 days ago 09/21/2015 None diarrhea Onset and Resolution ongoing 05/29/2015 None diarrhea Onset of Symptom _ years ago 05/29/2015 None diarrhea Timing of Episodes after meals 05/29/2015 None diarrhea Pertinent Findings Denies cough 05/29/2015 None diarrhea Pertinent Findings Denies fever 05/29/2015 None diarrhea Quality improvi ng 05/29/2015 None diarrhea Limitation on Activities does not limit activities 05/29/2015 None diarrhea Frequency of Episodes decreasing 05/29/2015 None diarrhea Triggers meals 05/29/2015 None diarrhea Alleviating Factors medication 05/29/2015 questran diarrhea Quality increas ed amount 04/30/2015 None diarrhea Onset and Resolution ongoing 04/30/2015 None diarrhea Onset of Symptom _ years ago 04/30/2015 None diarrhea Frequency of Episodes daily 04/30/2015 3 per day usually diarrhea Timing of Episodes after meals 04/30/2015 None diarrhea Pertinent Findings Denies cough 04/30/2015 None diarrhea Pertinent Findings Denies fever 04/30/2015 None Advance Directives No Advance Directive data Encounters Encounter Performer Loca tion Codes Date ([id number]) [id number] EST. P ATIENT, LEVEL III Diagnosis: Polycystic ovarian syndrome[ICD10: E28.2] Chari Leon MD, [facility] CPT-4: 98581 05/19/2018 ([id number] EST. P ATIENT, LEVEL III Diagnosis: Phlebitis and thrombophlebitis of superficial vessels of left lower extremity[ICD10: I80.02] Chari Leon MD, [facility] CPT-4: 11384 05/06/2018 84599 EST. PATIENT, LEVEL III Diagnosis: Pain in thoracic spine[ICD10: M54.6] Merline Leon MD, [facility] CPT- 4: 94781 2018 95669 EST. PATIENT, LEVEL III Diagnosis: Impacted cerumen, bilateral[ICD10: H61.23] Diagnosis: Acute serous otitis media, left ear[ICD10: H65.02] Merline Leon MD, [facility] CPT-4: 67158 03/16/2018 60439 EST. PATIENT, LEVEL IV Diagnosis: Left upper quadrant pain[ICD10: R10.12] Merline Leon MD, [facility] CPT-4: 80545 04/24/2017 92656 EST. PATIENT, LEVEL III Diagnosis: Acute laryngopharyngitis[ICD10: J06.0] Diagnosis: Other allergic rhinitis[ICD10: J30.89] Merline Leon MD, [facility] CPT-4: 38436 02/02/2017 54523 EST. PATIENT, LEVEL IV Diagnosis: Acute laryngopharyngitis[ICD10: J06.0] Diagnosis: Other acute sinusitis[ICD10: J01.80] Diagnosis: Other allergic rhinitis[ICD10: J30.89] Merline Leon MD, [facility] CPT-4: 52662 05/13/2016 47494 EST. PATIENT, LEVEL IV Diagnosis: Strain of other muscle(s) and tendon(s) at lower leg level, right leg, initial encounter[ICD10: S86.811A] Merline Leon MD, [facility] CPT-4: 92104 10/11/2015 86586 EST. PATIENT, LEVEL III Diagnosis: Dysuria[ICD10: R30.0] Diagnosis: Right upper quadrant pain[ICD10: R10.11] Merline Leon MD, [facility] CPT-4: 52037 09/27/2015 26633 EST. PATIENT, LEVEL III Diagnosis: Dysuria[ICD10: R30.0] Merline Leon MD, [facility] CPT-4: 96108 09/21/2015 ([id number]) 48496 EST. P ATIENT, LEVEL III Diagnosis: Nontoxic multinodular goiter[ICD10: E04.2] Diagnosis: Noninfective gastroenteritis and colitis, unspecified[ICD10: K52.9] Ioana Leon MD, [facility] CPT-4: 24157 05/29/2015 ([id number]) OFFICE VISI T, NEW - LEVEL 3 Diagnosis: Nontoxic multinodular goiter[ICD10: E04.2] Diagnosis: Noninfective gastroenteritis and colitis, unspecified[ICD10: K52.9] Ioana Leon MD, [facility] CPT-4: 62461 04/30/2015 Plan of Care Planned Activity Notes C odes Status Date Patient Education: Patient Medication Summary Completed 09/14/2018 Care Plan: [facility] 57317-2 Pending 09/14/2018 Visit Plan: Thrombophlebitis - reso lved - pt to continue with the aspirin 325mg daily x 1 month - her control was stopped. PCOS - pt to alert us if her symptoms of PCOS worsen off of the control. 05/19/2018 [phone] [place] (15 min) Moderate 05/19/2018 Patient Education: Patient Medication Summary Completed [...] 2 weeks 05/06/2018 Appointment[phone] [facility] [place] (15 min) Moderate 05/06/2018 Patient [...] improve. 2018 Appointment: [phone] [place] (30 min) Complex 2018 Patient Education: Patient Medication Summary Completed 2018 Visit Plan: Otitis Media - discusse d the diagnosis with the patient, script sent [...] process. 03/16/2018 Appointment: Merline Matta [facility]el[facility] [phone] [facility] [place] (15 min) Moderate 03/16/2018 Patient Education: Patient Medication Summary Completed 03/16/2018 Care Plan: X-RAY EXAM OF ABDOMEN LOINC : 06555-6 Pending 04/26/2017 Visit Plan: Left flank pain - histo ry of kidney stones - UA negative - will order x-ray and treat or refer as indicated - pt is to notify clinic with any changes, questions, or concerns. 04/24/2017 Visit Plan: Left flank pain - histo ry of kidney stones - UA negative - will order x-ray and treat or refer as indicated - pt is to notify clinic with any changes, questions, or concerns. 04/24/2017 Appointment: Merline Matta [facility]Ptel: [phone] [facility] [place] (15 min) Moderate 04/24/2017 Patient Education: Patient Medication Summary Completed 04/24/2017 Appointment: Lab Draw 03/04/2017 Patient Education: Patient Medication Summary Completed 03/04/2017 Visit Plan: URI - Pt advised to inc rease fluids, vitamin C. Discussed natural and expected [...] Visit Plan: URI - Pt advised to inc rease fluids, vitamin C. Discussed natural and expected [...] allergy spray. 02/02/2017 Appointment: Merline Matta WPtel: [facility] (15 min) Moderate 02/02/2017 Patient Education: Patient Medication Summary Completed 02/02/2017 Visit Plan: URI - Pt advised to inc rease fluids, vitamin C. Discussed natural and expected [...] Visit Plan: URI - Pt advised to inc rease fluids, vitamin C. Discussed natural and expected [...] allergy spray. 05/13/2016 Appointment: Merline Matta WPtel: [phone] [facility] [place] (15 min) Moderate 05/13/2016 Patient Education: Patient Medication Summary Completed 05/13/2016 Appointment: (30 min) Complex 11/20/2015 Visit Plan: Right calf pain - Pt st ates that she was stepping off her porch [...] any concerns. 10/11/2015 Appointment: Merline Matta WPtel: [phone] [facility] [place] (30 min) Complex 10/11/2015 Patient Education: Patient Medication Summary Completed 10/11/2015 Visit Plan: Right flank pain - pt s tates that she feels like she still has a uti - will repeat UA C&S if indicated - will order KUB, will treat pending results. 09/27/2015 Appointment: Merline Matta WPtel: [facility] (30 min) Complex 09/27/2015 Patient Education: Patient [...] Education: Obesity Completed 09/21/2015 Visit Plan: Thyroid nodules-stable- repeat ultrasound in 6 months Chronic diarrhea-significantly improved-continue questran 05/29/2015 Visit Plan: Thyroid nodules-stable- repeat ultrasound in 6-12 months-minimal change Chronic diarrhea-significantly improved-continue questran 05/29/2015 Appointment: (30 min) Complex 05/29/2015 Patient Education: Patient Medication Summary Completed 05/29/2015 Patient Education: Obesity Completed 05/29/2015 Visit Plan: Multinodular goiter-fol low up thyroid ultrasound- check labs Chronic diarrhea-post [...] pending results. . URI - Pt advised t o increase fluids, vitamin C. Discussed natural and [...] allergy spray. . URI - Pt advised t o increase fluids, vitamin C. Discussed natural and [...] 2 weeks . URI - Pt advised t o increase fluids, vitamin C. Discussed natural and [...] allergy spray. . URI - Pt advised t o increase fluids, vitamin C. Discussed natural and [...] worsen, or with any concerns. . Thyroid nodules-st able-repeat ultrasound in 6 months Chronic diarrhea-significantly improved-continue questran . Thyroid nodules-st able-repeat ultrasound in 6-12 months- minimal change Chronic diarrhea-significantly improved-continue questran . Left [...] in 1 month . Otitis Media - dis cussed the diagnosis with the patient, script sent [...]
--- OUTSIDE RECORDS SUMMARY | 2019-08-12 07:20 | XMS REPORT | CCD ---
Author Author Tiffanie Valenzuela Organization Chari Leon MD, [facility] Address [address] [place] [address] Phone Care Team Providers Care Software Sales Consultant Name Role Phone PP Unavailable CCM Unavailable Summary Purpose Interface Exchange Insurance Providers Payer name Policy type / Coverage type Covered green party ID Effective Begin Date Effective End Date Blue Cross Blue Shield [facility] e Cross/Blue Shield [id number] Unknown Unknown Family history Daughter Diagnosis Age At Onset Asthma Unknown Father Diagnosis Age At Onset Cancer Unknown Mother Diagnosis Age At Onset Hyperlipidemia Unknown Social History Social History Element Codes Description Effective Dates Marital status Unknown D ivorced 04/30/2015 Number of children Unknown 3 04/30/[address]: 445061541 Never smoker 04/30/[address]: 598682919 Never drinks alcohol 04/30/2015 Allergies, Adverse Reactions, Alerts Substance Reaction Codes Entered Date Inactivated Date Status * NO KNOWN DRUG SAMSON RGIES Unknown 04/30/2015 No Inactive Date Active Past Medical History Illness Codes Condition Status Onset Date Resolved Date Encounter for genera l adult medical examination without abnormal findings ICD-9: V70.0 ICD-10: Z00.00 Active 11/17/2018 Unknown Encounter for screen ing mammogram for malignant [...] Effectiv e Dates Condition Status Encounter for genera l adult medical examination without abnormal findings ICD-9: V70.0 ICD-10: Z00.00 11/17/2018 Active Encounter for screen ing mammogram for malignant [...] Instructions cephalexin 500 mg ta blet RxNorm: 917856 1 Capsule(s) PO TID 05/06/2018 05/15/2018 Inactive cyclobenzaprine 5 mg tablet RxNorm: 917353 1 Tablet(s) PO TID as needed muscle spasms 2018 05/08/2018 Inactive Augmentin 500 mg-125 mg tablet RxNorm: 450229 1 Tablet(s) PO TID 03/16/2018 03/22/2018 Inactive take with probiotic BID prednisone 20 mg tablet RxNorm: 613425 2 Tablet(s) PO daily to equil 40mg 02/17/2017 02/21/2017 In active prednisone 20 mg tablet RxNorm: 972835 2 Tablet(s) PO daily 02/17/2017 02/16/2017 Inactive Augmentin 500 mg-125 mg tablet RxNorm: 465539 1 Tablet(s) PO TID 02/17/2017 02/23/2017 Inactive take with probiotic BID Kenalog 40 mg/mL tip pension for injection RxNorm: 9945840 Milliliter(s) Inj 02/02/2017 02/02/2017 In active Zithromax Z-Everardo 250 mg tablet RxNorm: 812322 1 Tablet(s) PO UD 02/02/2017 03/15/2018 Inactive Kenalog 40 mg/mL tip pension for injection RxNorm: 3211290 1 Milliliter(s) Inj 05/13/2016 05/13/2016 In active Phenergan with Codei ne Syrup RxNorm: 5-10 Milliliter(s) PO QID a s needed 05/13/2016 03/15/2018 In active Augmentin 500 mg-125 mg tablet RxNorm: 605520 1 Tablet(s) PO TID 05/13/2016 05/19/2016 Inactive Ventolin HFA 90 mcg/ actuation aerosol inhaler RxNorm: 018470 1 Puff(s) INH PRN 05/06/2016 03/15/2018 In active Augmentin 500 mg-125 mg tablet RxNorm: 744897 1 Tablet(s) PO TID 09/27/2015 10/03/2015 Inactive Augmentin 500 mg-125 mg tablet RxNorm: 837599 1 Tablet(s) PO TID 09/27/2015 09/26/2015 Inactive Bactrim DS 800 mg-16 0 mg tablet RxNorm: 914385 1 Tablet(s) PO BID 09/21/2015 09/27/2015 Inactive Questran 4 gram oral powder RxNorm: 944693 2 Gram(s) PO daily 04/30/2015 05/29/2015 Inactive Sprintec (28) 0.25 m g-35 mcg tablet RxNorm: 612710 1 Tablet(s) PO daily 04/30/2015 05/05/2018 In active Ventolin HFA 90 mcg/ actuation aerosol inhaler RxNorm: 226688 1 Puff(s) INH PRN No Start Date 05/05/2016 Inactive Medication Administered Medication Codes Instruc tions Start Date Status Kenalog 40 mg/mL suspension for injection RxNorm: 0249897 Milliliter 02/02/2017 No longer Active Kenalog 40 mg/mL suspension for injection RxNorm: 5063744 1Milliliter 05/13/2016 N o longer Active Immunizations Vaccine Codes Date Status Influenza CVX: 141 12/31 completed Assessments Condition Codes Effectiv e Dates Encounter for general adult medical exam ination without abnormal findings ICD-10: Z00.00 ICD-9: V70.0 11/17/2018 Encounter for screening mammogram for ma lignant [...] Visit Reason For Visit Effective Dates Notes well woman exam (40-65 years) 11/17/2018 lower leg pain 05/19/2018 lower leg pain [...] NO Growth Day 1 09/23 Comp Metabolic Yjx537 NA 138 mEq/L 05/02/2015 Comp Metabolic Cda466 K 3.8 mEq/L 05/02/2015 Comp Metabolic Ass287 CL 106 mEq/L 05/02/2015 Comp Metabolic Zfu860 CO2 24.0 mEq/L 05/02/2015 Comp Metabolic Jou266 AN ION GAP 12 05/02/2015 Comp Metabolic Rpm680 GL UCOSE 102 mg/dL 05/02/2015 Comp Metabolic Bct830 Cr eat 0.9 mg/dL 05/02/2015 Comp Metabolic Tbv066 eG FR 74 ml/min/1.73m2 05/01 Comp Metabolic Grf724 BUN 14 mg/dL 05/02/2015 Comp Metabolic Ivx659 B/ C Ratio 15.9 Ratio 05/02/2015 Comp Metabolic Qqk371 CA LCIUM 9.0 mg/dL 05/02/2015 Comp Metabolic Twd058 AL K PHOS 40 U/L 05/02/2015 Comp Metabolic Hfu248 T(SGOT) 14 U/L 05/02/2015 Comp Metabolic Ecx023 AL T(SGPT) 9 U/L 05/02/2015 Comp Metabolic Apn358 BI LI T 0.6 mg/dL 05/02/2015 Comp Metabolic Lwu391 AL BUMIN 4.2 g/dL 05/02/2015 Comp Metabolic Vmy276 TP RO 6.5 g/dL 05/02/2015 Comp Metabolic Cxq939 GL OB 2.3 g/dL 05/02/2015 Comp Metabolic Slr052 A/ G Ratio 1.8 Ratio 05/02/2015 Comp Metabolic Zuq446 Os mo 276 mOsmo 05/02/2015 Cbc With [...] 31.0 pg 05/02/2015 Cbc With Differential Ord2 [place]% 6.1 % 05/02/2015 Cbc With Differential Ord2 [...] 2.18 K/ul 05/02/2015 Cbc With Differential Ord2 [place] ABS# 0.5 K/ul 05/02/2015 Cbc With Differential [...] Result Effective Dates Constitutional No recent illness 11/17/2018 Constitutional No anorexia 11/17/2018 Constitutional No night sweats 11/17/2018 Constitutional No chills 11/17/2018 Constitutional No diaphoresis 11/17/2018 Constitutional fatigue 0 11/17/2018 Constitutional No fever 11/17/2018 Constitutional No insomnia 11/17/2018 Constitutional No malaise 11/17/2018 Eyes No eye discharge Eyes No eye erythema Ears/Nose/Throat/Neck No dizziness 11/17/2018 Ears/Nose/Throat/Neck No headache 11/17/2018 Ears/Nose/Throat/Neck No nasal allergies 11/17/2018 Ears/Nose/Throat/Neck No nasal discharge 11/17/2018 Cardiovascular No chest pain/pressure 11/17/2018 Cardiovascular No dyspnea 11/17/2018 Cardiovascular No edema 11/17/2018 Respiratory asthma 11/17 Respiratory No cough Gastrointestinal No abdominal pain 11/17/2018 Gastrointestinal No constipation 11/17/2018 Gastrointestinal No diarrhea 11/17/2018 Gastrointestinal No nausea 11/17/2018 Gastrointestinal No vomiting 11/17/2018 Genitourinary/Nephrology No dysuria 11/17/2018 Musculoskeletal No joint complaint 11/17/2018 Dermatologic No rash Neurologic No alteration of consciousness 11/17/2018 Psychiatric No anxiety 0 11/17/2018 Psychiatric No depression 11/17/2018 Endocrine No dry or coarse skin 11/17/2018 Hematologic/Lymphatic No abnormal bl eeding and bruising 11/17/2018 Cardiovascular No near-syncope/dizziness 11/17/2018 Cardiovascular No syncope 11/17/2018 Respiratory No chest congestion 11/17/2018 Respiratory No chest tightness 11/17/2018 Respiratory No dyspnea 0 11/17/2018 Respiratory No productive sputum 11/17/2018 Genitourinary/Nephrology No breast c omplaint 11/17/2018 Genitourinary/Nephrology No hematuria 11/17/2018 Genitourinary/Nephrology No urinary frequency 11/17/2018 Genitourinary/Nephrology No urinary incontinence 11/17/2018 Genitourinary/Nephrology No urinary urgenc y 11/17/2018 Genitourinary/Nephrology No vaginal discharge 11/17/2018 Genitourinary/Nephrology No menopaus al symptoms 11/17/2018 Genitourinary/Nephrology No nocturia 11/17/2018 Genitourinary/Nephrology No Pap smea r abnormality 11/17/2018 Dermatologic No sores Constitutional recent illness 05/19/2018 Constitutional No fatigue [...] 1994 Constitutional general appearance Overall: well developed 11/17/2018 None Full Exam - General 1994 Constitutional general appearance Overall: in no acute distress 11/17/2018 None Full Exam - General 1994 Constitutional general appearance Overall: well nourished 11/17/2018 None Full Exam - General 1994 Eyes conjunctiva/eyelids Overall: conjunctiva clear 11/17/2018 None Full Exam - General 1994 Eyes conjunctiva/eyelids Overall: cornea clear 11/17/2018 None Full Exam - General 1994 Eyes conjunctiva/eyelids Overall: eyelids normal 11/17/2018 None Full Exam - General 1994 Eyes pupils and irises Overall: pupils equal, round, reactive to light and accomodation 11/17/2018 None Full Exam - General 1994 Ears/Nose/Throat otoscopic exam Overall: external auditory canals clear 11/17/2018 None Full Exam - General 1994 Ears/Nose/Throat otoscopic exam Overall: tympanic membranes clear 11/17/2018 None Full Exam - General 1994 Ears/Nose/Throat oral cavity/pharynx/larynx Overall: oral mucosa clear 11/17/2018 None Full Exam - General 1995 Ears/Nose/Throat oral cavity/pharynx/larynx Overall: oropharyngeal mucosa clear 11/17/2018 None Full Exam - General 1994 Ears/Nose/Throat oral cavity/pharynx/larynx Overall: no masses 11/17/2018 None Full Exam - General 1994 Respiratory auscultation Overall: breath sounds clear bilaterally 11/17/2018 None Full Exam - General 1994 Respiratory respiratory effort/rhythm Overall: no retractions 11/17/2018 None Full Exam - General 1994 Respiratory respiratory effort/rhythm Overall: normal rate 11/17/2018 None Full Exam - General 1994 Cardiovascular extremities Overall: no clubbing 11/17/2018 None Full Exam - General 1994 Cardiovascular auscultation of heart Overall: regular rate 11/17/2018 None Full Exam - General 1994 Cardiovascular auscultation of heart Overall: normal heart sounds 11/17/2018 None Full Exam - General 1994 Cardiovascular auscultation of heart Overall: no murmurs 11/17/2018 None Full Exam - General 1994 Abdomen abdominal exam Overall: no tenderness 11/17/2018 None Full Exam - General 1994 Abdomen abdominal exam Overall: normal bowel sounds 11/17/2018 None Full Exam - General 1994 Lymphatic neck nodes Overall: anterior cervical chain benign 11/17/2018 None Full Exam - General 1994 Lymphatic neck nodes Overall: posterior cervical chain benign 11/17/2018 None Full Exam - General 1994 Musculoskeletal gait and station Overall: normal gait 11/17/2018 None Full Exam - General 1994 Musculoskeletal gait and station Overall: normal station 11/17/2018 None Full Exam - General 1994 Musculoskeletal head and neck Overall: head atraumatic 11/17/2018 None Full Exam - General 1994 Musculoskeletal head and neck Overall: cervical spine benign 11/17/2018 None Full Exam - General 1994 Integument inspection of skin Overall: no rash, lesions 11/17/2018 None Full Exam - General 1994 Neurologic cranial nerves Overall: crainial nerves 2 - 12 grossly intact 11/17/2018 None Full Exam - General 1994 Psychiatric orientation/consciousness Overall: oriented to person, place and time 11/17/2018 None Full Exam - Genitourinary/Female Car diovascular examination of vasculature Overall: no clubbing, cyanosis, edema 11/17/2018 None Full Exam - Genitourinary/Female Abdomen abdominal exam Overall: non tender, non distended 11/17/2018 None Full Exam - Genitourinary/Female Abdomen abdominal exam Overall: no mass lesions 11/17/2018 None Full Exam - Genitourinary/Female Gen itourinary breast inspection & palpation Overall: breasts symmetric and without lesions 11/17/2018 None Full Exam - Genitourinary/Female Gen itourinary breast inspection & palpation Overall: breasts non-tender, no mass lesions 11/17/2018 None Full Exam - Genitourinary/Female Gen itourinary breast inspection & palpation Overall: no nipple discharge 11/17/2018 None Full Exam - Genitourinary/Female Gen itourinary external genitalia Overall: no discharge 11/17/2018 None Full Exam - Genitourinary/Female Gen itourinary external genitalia Overall: no lesions 11/17/2018 None Full Exam - Genitourinary/Female Gen itourinary urethral meatus Overall: normal size and location 11/17/2018 None Full Exam - Genitourinary/Female Gen itourinary vagina Overall: no disch arge 11/17/2018 None Full Exam - Genitourinary/Female Gen itourinary vagina Overall: no lesio ns 11/17/2018 None Full Exam - Genitourinary/Female Gen itourinary vagina Overall: normal t one 11/17/2018 None Full Exam - Genitourinary/Female Gen itourinary vagina Overall: normal p elvic support 11/17/2018 None Full Exam - Genitourinary/Female Gen itourinary vagina Introitus: normal appearance 11/17/2018 None Full Exam - Genitourinary/Female Gen itourinary vagina Vaginal discharge: absent 11/17/2018 None Full Exam - Genitourinary/Female Gen itourinary vagina Vagina: no lesion s present 11/17/2018 None Full Exam - Genitourinary/Female Gen itourinary vagina Vaginal tone: a n ormal exam 11/17/2018 None Full Exam - Genitourinary/Female Lymphatic inspection and palpation of nodes Overall: anterior cervical chain benign 11/17/2018 None Full Exam - Genitourinary/Female Lymphatic inspection and palpation of nodes Overall: posterior cervical chain benign 11/17/2018 None Full Exam - Genitourinary/Female Integumen t inspection and palpation of skin Overall: no rash, lesions 11/17/2018 None Full Exam - Genitourinary/Female Neurologi c mood and affect Overall: normal mood 11/17/2018 None Full Exam - Genitourinary/Female Neurologi c mood and affect Overall: normal affect 11/17/2018 None Full Exam - Genitourinary/Female Neurologi c orientation Overall: oriented to person, place and time 11/17/2018 None Full Exam - General 1994 Constitutional [...] Date URINALYSIS NONAUTO W /O SCOPE CPT-4: 95563 03/04/2017 TRIAMCINOLONE ACET I [place] NOS CPT-4: J3301 02/02/2017 TRIAMCINOLONE ACET I [place] NOS CPT-4: J3301 05/13/2016 Vital Signs Date Vital 11/17/2018 Blood Pressure 1: 122/74 Code: 8480-6 BMI: 25.6 Code: 12598-7 Heart Rate 1: 80 bpm Height: 5'5" SpO2: 99% Weight: 154 lbs 05/19/2018 Blood Pressure 1: 110/68 Code: 8480-6 BMI: 26.3 Code: 50034-7 Heart Rate 1: 90 bpm Height: 5'5" SpO2: 98% Weight: 158 lbs 05/06/2018 Blood Pressure 1: 132/74 Code: 8480-6 BMI: 26.6 Code: 60701-8 Heart Rate 1: 77 bpm Height: 5'5" SpO2: 96% Weight: 160 lbs 2018 Blood Pressure 1: 145/80 Code: 8480-6 BMI: 26.6 Code: 98309-6 Heart Rate 1: 90 bpm Height: 5'5" SpO2: 99% Weight: 160 lbs 03/16/2018 Blood Pressure 1: 114/80 Code: 8480-6 BMI: 26.5 Code: 98579-4 Heart Rate 1: 82 bpm Height: 5'5" SpO2: 98% Weight: 159 lbs 04/24/2017 Blood Pressure 1: 130/76 Code: 8480-6 BMI: 26.0 Code: 09328-5 Heart Rate 1: 75 bpm Height: 5'5" SpO2: 99% Weight: 156 lbs 02/02/2017 Blood Pressure 1: 128/74 Code: 8480-6 BMI: 26.0 Code: 50592-8 Heart Rate 1: 76 bpm Height: 5'5" SpO2: 98% Temperature: 37.6 (C ) / 99.6 (F) Weight: 156 lbs 05/13/2016 Blood Pressure 1: 138/80 Code: 8480-6 BMI: 26.0 Code: 83408-3 Heart Rate 1: 83 bpm Height: 5'5" SpO2: 97% Temperature: 37.1 (C ) / 98.7 (F) Weight: 156 lbs 10/11/2015 Blood Pressure 1: 126/72 Code: 8480-6 Heart Rate 1: 80 bpm Height: 5'5" SpO2: 99% Weight: 09/27/2015 Blood Pressure 1: 126/68 Code: 8480-6 BMI: 26.0 Code: 08179-6 Heart Rate 1: 70 bpm Height: 5'5" SpO2: 99% Weight: 156 lbs 09/21/2015 Blood Pressure 1: 138/72 Code: 8480-6 BMI: 26.0 Code: 36678-7 Heart Rate 1: 81 bpm Height: 5'5" SpO2: 98% Weight: 156 lbs 05/29/2015 Blood Pressure 1: 126/62 Code: 8480-6 BMI: 26.1 Code: 62890-4 Heart Rate 1: 83 bpm Height: 5'5" SpO2: 96% Weight: 157 lbs 04/30/2015 Blood Pressure 1: 110/70 Code: 8480-6 BMI: 26.1 Code: 28857-0 Heart Rate 1: 80 bpm Height: 5'5" SpO2: 99% Weight: 157 lbs Functional Status No Functional Status data History of Present Illness Symptom Name Status Resu lt Effective Date Notes Cardiovascular Risk Factors family history of cardiovascular disease 11/17/2018 None Health Guidance baseli ne mammogram 11/17/2018 None Health Guidance depres tisha symptoms 11/17/2018 None Health Guidance self-b reast exam 11/17/2018 None Immunizations influenz a vaccine (annually over 50 y.o.) 11/17/2018 None Lifestyle no history o f physical abuse 11/17/2018 None Menstrual History irre gular menses 11/17/2018 None Nutrition and Exercise balanced nutrition 11/17/2018 None Nutrition and Exercise normal weight 11/17/2018 None Breast/Protection Agent Complaints perimenopausal symptoms 11/17/2018 None Control none 11/17/2018 None Nutrition and Exercise regular diet 11/17/2018 None Nutrition and Exercise minimal exercise 11/17/2018 None Obstetrical History 3 total pregnancies 11/17/2018 None Health Guidance colono scopy/sigmoidoscopy 11/17/2018 due next year Sexual Activity experi ences sexual satisfaction 11/17/2018 None Location on the left 05/19/2018 None Quality [...] moderately limits activities 05/19/2018 None Pertinent Findings aissatou spear 05/19/2018 None Onset and Resolution r esolved [...] moderately limits activities 05/06/2018 None Pertinent Findings aissatou spear 05/06/2018 None Onset of Symptom 3 day [...] Encounters Encounter Performer Loca tion Codes Date (30737) PREV VISIT E ST AGE 40-64 Diagnosis: Encounter for general adult medical examination without abnormal findings[ICD10: Z00.00] [facility] CPT-4: 86965 11/17/2018 ([id number]) 23780 EST. P ATIENT, LEVEL III Diagnosis: Polycystic ovarian syndrome[ICD10: E28.2] Chari Leon MD, [facility] CPT-4: 13324 05/19/2018 ([id number]) 71404 EST. P ATIENT, LEVEL III Diagnosis: Phlebitis and thrombophlebitis of superficial vessels of left lower extremity[ICD10: I80.02] Chari Leon MD, [facility] CPT-4: 27751 05/06/2018 85986 EST. PATIENT, LEVEL III Diagnosis: Pain in thoracic spine[ICD10: M54.6] Merline Leon MD, [facility] CPT- 4: 67328 2018 37270 EST. PATIENT, LEVEL III Diagnosis: Impacted cerumen, bilateral[ICD10: H61.23] Diagnosis: Acute serous otitis media, left ear[ICD10: H65.02] Merline Leon MD, [facility] CPT-4: 02115 03/16/2018 [id number] EST. PATIENT, LEVEL IV Diagnosis: Left upper quadrant pain[ICD10: R10.12] Merline Leon MD, [facility] CPT-4: 66017 04/24/2017 95093 EST. PATIENT, LEVEL III Diagnosis: Acute laryngopharyngitis[ICD10: J06.0] Diagnosis: Other allergic rhinitis[ICD10: J30.89] Merline Leon MD, [facility] CPT-4: 11289 02/02/2017 85224 EST. PATIENT, LEVEL IV Diagnosis: Acute laryngopharyngitis[ICD10: J06.0] Diagnosis: Other acute sinusitis[ICD10: J01.80] Diagnosis: Other allergic rhinitis[ICD10: J30.89] Merline Leon MD, [facility] CPT-4: 30040 05/13/2016 77139 EST. PATIENT, LEVEL IV Diagnosis: Strain of other muscle(s) and tendon(s) at lower leg level, right leg, initial encounter[ICD10: S86.811A] Merline Leon MD, [facility] CPT-4: 69866 10/11/2015 20354 EST. PATIENT, LEVEL III Diagnosis: Dysuria[ICD10: R30.0] Diagnosis: Right upper quadrant pain[ICD10: R10.11] Merline Leon MD, [facility] CPT-4: 24843 09/27/2015 32034 EST. PATIENT, LEVEL III Diagnosis: Dysuria[ICD10: R30.0] [facility] CPT-4: 99468 09/21/2015 ([id number]) 82616 EST. P ATIENT, LEVEL III Diagnosis: Nontoxic multinodular goiter[ICD10: E04.2] Diagnosis: Noninfective gastroenteritis and colitis, unspecified[ICD10: K52.9] Ioana Leon MD, [facility] CPT-4: 42029 05/29/2015 ([id number]) OFFICE VISI T, NEW - LEVEL 3 Diagnosis: Nontoxic multinodular goiter[ICD10: E04.2] Diagnosis: Noninfective gastroenteritis and colitis, unspecified[ICD10: K52.9] Ioana Leon MD, [facility] CPT-4: 77358 04/30/2015 Plan of Care Planned Activity Notes C odes Status Date Visit Plan: Well Adult - pt was cou nseled about diet, exercise, and encouraged to follow a heart healthy diet and increase activity level. The patient was instructed to RTC yearly for well adult exams and PRN for acute illnesses. The pt was also instructed to have yearly labs for check of cholesterol, thyroid, chem panel, CBC, and renal functioning. Hx of superficial blood clots - pt unable to take control 11/17/2018 Visit Plan: Well Adult - pt was cou nseled about diet, exercise, and encouraged to follow a heart healthy diet and increase activity level. The patient was instructed to RTC yearly for well adult exams and PRN for acute illnesses. The pt was also instructed to have yearly labs for check of cholesterol, thyroid, chem panel, CBC, and renal functioning. Hx of superficial blood clots - pt unable to take control 11/17/2018 Patient Education: Patient Medication Summary Completed 11/17/2018 Patient Education: Patient Medication Summary Completed 09/14/2018 Visit Plan: Thrombophlebitis - reso lved - pt to continue with the aspirin 325mg daily x 1 month - her control was stopped. PCOS - pt to alert us if her symptoms of PCOS worsen off of the control. 05/19/2018 Appointment: [facility] [phone] [facility] [place] [place] (15 min) Moderate 05/19/2018 Patient Education: [...] 2 weeks 05/06/2018 Appointment: Chari Leon WPtel: [facility] [place] [place] (15 min) Moderate 05/06/2018 Patient Education: [...] improve. 2018 [facility]ment[facility] [phone] [facility] [place] ([facility] min) Complex 2018 Patient Education: [...] process. 03/16/2018 Appointment: [facility] [phone] [facility] [place] (15 min) Moderate 03/16/2018 Patient Education: Patient Medication Summary Completed 03/16/2018 Care Plan: X-RAY EXAM OF ABDOMEN LOINC : 62021-7 Pending 04/26/2017 Visit Plan: Left flank pain [...] concerns. 04/24/2017 Appointment: [facility] [phone] [facility] [place] (15 min) Moderate 04/24/2017 Patient Education: [...] allergy spray. 02/02/2017 Appointment: Merline Matta WPtel: [address] [place], [place] [id number] (15 min) Moderate 02/02/2017 Patient Education: Patient [...] allergy spray. 05/13/2016 Appointment: Merline Matta WPtel[facility] (15 min) Moderate 05/13/2016 Patient Education: Patient [...] any concerns. 10/11/2015 Appointment: [facility] [phone] [facility] [place] (30 min) Complex 10/11/2015 Patient Education: Patient Medication Summary Completed 10/11/2015 Visit Plan: Right flank pain - pt s tates that she feels like she still has a uti - will repeat UA C&S if indicated - will order KUB, will treat pending results. 09/27/2015 Appointment: [facility] [phone] [facility] [place] (30 min) Complex 09/27/2015 Patient Education: [...] with any changes, questions, or concerns. . Well Adult - pt wa s counseled about diet, exercise, and encouraged to follow a heart healthy diet and increase activity level. The patient was instructed to RTC yearly for well adult exams and PRN for acute illnesses. The pt was also instructed to have yearly labs for check of cholesterol, thyroid, chem panel, CBC, and renal functioning. Hx of superficial blood clots - pt unable to take control . Well Adult - pt wa s counseled about diet, exercise, and encouraged to follow a heart healthy diet and increase activity level. The patient was instructed to RTC yearly for well adult exams and PRN for acute illnesses. The pt was also instructed to have yearly labs for check of cholesterol, thyroid, chem panel, CBC, and renal functioning. Hx of superficial blood clots - pt unable to take control
--- OUTSIDE RECORDS SUMMARY | 2019-08-12 07:22 | XMS REPORT | Continuity of Care Document ---
Author Organization Unknown Address Unknown Phone Unavailable Allergies Active Description Code Type Severity Reaction Onset Reported/Identified Relationship to Patient Clinical Status Yes No Known Drug Allergies [id number] Drug Allergy Unknown N/A 08/05/2019 Medications There is no data. Problems Date Dx Coded Attending Type Code Diagnosis Diagnosed By 01/29/1505 BRENNEN ENCARNACION, JACIEL Denise Ot Z01.818 ENCOUNTER FOR OTHER PREPROCEDURAL EXAMIN 01/29/1505 JACIEL HUTTON MD Ot Z11. 59 ENCOUNTER FOR SCREENING FOR OTHER VIRAL 07/07/2009 Ot 780.50 06/02/2011 Ot 530.81 ESO PHAGEAL REFLUX 06/02/2011 Ot 789.00 ABD OMINAL PAIN, UNSPECIFIED SITE 04/14/2014 BELLA ENCARNACION, PRINCE Whitmore Ot 574.20 04/18/2014 Ot 240.9 04/18/2014 Ot 240.9 04/18/2014 Ot 246.2 04/18/2014 Ot V76.12 04/18/2014 Ot 789.00 04/18/2014 Ot V13.01 04/18/2014 Ot 780.4 04/18/2014 Ot 784.0 04/18/2014 PRINCE BLANCO MD Ot V76.12 04/18/2014 PAULA ENCARNACION, LOLLY Comer Ot 241.0 04/18/2014 PRINCE BLANCO MD Ot 574.20 04/20/2014 PRINCE BLANCO MD Ot V76.12 04/24/2014 WILLI ENCARNACION, IDALIA Comer Ot 787.91 DIARRHEA 04/24/2014 WILLI ENCARNACION, IDALIA Comer Ot V12.72 PERSONAL HISTORY OF COLONIC POLYPS 04/24/2014 WILLI ENCARNACION, IDALIA Comer Ot V16.0 FAMILY HX-GI MALIGNANCY 04/27/2014 PRINCE BLANCO MD Ot 574.20 04/28/2014 IDALIA MÁRQUEZ MD Ot 575.11 CHRONIC CHOLECYSTITIS 05/14/2015 Ot 789.00 [...] PRINCE Whitmore Ot Z12.31 05/16/2015 FREDRICK RODRIGUEZ SIGN ERECTOR Ot E04.2 05/30/2015 BELLA ENCARNACION, PRINCE Whitmore Ot Z12.31 05/30/2015 FREDRICK RODRIGUEZ SIGN ERECTOR Ot E04.2 08/24/2015 Ot 780.4 DIZZ INESS AND GIDDINESS 08/24/2015 Ot 784.0 HEAD ACHE 08/24/2015 BELLA ENCARNACION, PRINCE Whitmore Ot V76.12 OTH SCREEN MAMMO-MALIGN NEOPLASM OF ASHLEY 08/24/2015 PAULA ENCARNACION, LOLLY Comer Ot 241.0 NONTOX UNINODULAR GOITER 08/24/2015 PRINCE BLANCO MD Ot V76.12 OTH SCREEN [...] MAMMOGRAM FOR MALIGNANT NE 08/24/2015 FREDRICK RODRIGUEZ SIGN ERECTOR Ot E04.2 NONTOXIC MULTINODULAR GOITER 08/27/2015 Ot 780.4 DIZZ INESS AND GIDDINESS 08/27/2015 Ot 784.0 HEAD ACHE 08/27/2015 PRINCE BLANCO MD Ot V76.12 OTH [...] Comer Ot V72.84 EXAM PRE-OPERATIVE NOS 08/27/2015 BELLA ENCARNACION, PRINCE Whitmore Ot Z12.31 ENCNTR SCREEN MAMMOGRAM FOR MALIGNANT NE 08/27/2015 FREDRICK RODRIGUEZ SIGN ERECTOR Ot E04.2 NONTOXIC MULTINODULAR GOITER 09/27/2015 Ot 780.4 DIZZ INESS AND GIDDINESS 09/27/2015 Ot 784.0 HEAD ACHE 09/27/2015 PRINCE BLANCO MD Ot V76.12 OTH SCREEN MAMMO-MALIGN NEOPLASM OF ASHLEY 09/27/2015 PAULA ENCARNACION, LOLLY Comer Ot 241.0 NONTOX UNINODULAR GOITER 09/27/2015 PRINCE BLANCO MD Ot V76.12 OTH SCREEN MAMMO-MALIGN NEOPLASM OF ASHLEY 09/27/2015 PRINCE BLANCO MD Ot 574.20 CHOLELITHIASIS NOS 09/27/2015 WILLI ENCARNACION, IDALIA Comer Ot 575.6 GB CHOLESTEROLOSIS 09/27/2015 WILLI ENCARNACION, IDALIA Comer Ot V72.63 PRE-PROCEDURAL LABORATORY EXAMINATION 09/27/2015 WILLI ENCARNACION, IDALIA Comer Ot V74.8 SCREEN-BACTERIAL DIS NEC 09/27/2015 WILLI ENCARNACION, IDALIA Comer Ot V72.84 EXAM PRE-OPERATIVE NOS 09/27/2015 BELLA ENCARNACION, PRINCE Whitmore Ot Z12.31 ENCNTR SCREEN MAMMOGRAM FOR MALIGNANT NE 09/27/2015 FREDRICK RODRIGUEZ Ot E04.2 NONTOXIC MULTINODULAR GOITER 09/28/2015 FAB MATTA LOAN UNDERWRITER Ot R10.32 LEFT LOWER QUADRANT PAIN 10/12/2015 FAB MATTA LOAN UNDERWRITER Ot R10.32 LEFT LOWER QUADRANT PAIN 10/12/2015 FAB MATTA LOAN UNDERWRITER Ot M79.661 PAIN IN RIGHT LOWER LEG 10/15/2015 FAB MATTA LOAN UNDERWRITER Ot M79.661 PAIN IN RIGHT LOWER LEG 11/01/2015 FAB MATTA LOAN UNDERWRITER Ot M79.661 PAIN IN RIGHT LOWER LEG 05/23/2016 Ot 780.4 DIZZ INESS AND GIDDINESS 05/23/2016 Ot 784.0 HEAD ACHE 05/23/2016 PRINCE BLANCO MD Ot V76.12 OTH SCREEN MAMMO-MALIGN NEOPLASM OF ASHLEY 05/23/2016 PAULA ENCARNACION, LOLLY Comer Ot 241.0 NONTOX UNINODULAR GOITER 05/23/2016 BELLA ENCARNACION, PRINCE Whitmore Ot V76.12 OTH SCREEN MAMMO-MALIGN NEOPLASM OF ASHLEY 05/23/2016 PRINCE BLANCO MD Ot 574.20 CHOLELITHIASIS NOS 05/23/2016 WILLI ENCARNACION, IDALIA Comer Ot 575.6 GB CHOLESTEROLOSIS 05/23/2016 WILLI ENCARNACION, IDALIA Comer Ot V72.63 PRE-PROCEDURAL LABORATORY EXAMINATION 05/23/2016 WILLI ENCARNACION, IDALIA Comer Ot V74.8 SCREEN-BACTERIAL DIS NEC 05/23/2016 WILLI ENCARNACION, IDALIA Comer Ot V72.84 EXAM PRE-OPERATIVE NOS 05/23/2016 BELLA ENCARNACION, PRINCE Whitmore Ot Z12.31 ENCNTR SCREEN MAMMOGRAM FOR MALIGNANT NE 05/23/2016 FREDRICK RODRIGUEZ Ot E04.2 NONTOXIC MULTINODULAR GOITER 05/23/2016 FAB MATTA APRN Ot R10.32 LEFT LOWER QUADRANT PAIN 05/23/2016 FAB MATTA LOAN UNDERWRITER Ot M79.661 PAIN IN RIGHT LOWER LEG 05/23/2016 PRINCE BLANCO MD, Ot Z12.31 ENCNTR SCREEN MAMMOGRAM FOR MALIGNANT NE 06/05/2016 PRINCE BLANCO MD, Ot Z12.31 ENCNTR SCREEN MAMMOGRAM FOR MALIGNANT NE 08/21/2016 Ot 780.4 DIZZ INESS AND GIDDINESS 08/21/2016 Ot 784.0 HEAD ACHE 08/21/2016 PRINCE BLANCO MD Ot V76.12 OTH SCREEN MAMMO-MALIGN NEOPLASM OF ASHLEY 08/21/2016 LOLLY MITCHELL MD Ot 241.0 NONTOX UNINODULAR GOITER 08/21/2016 PRINCE BLANCO MD, Ot V76.12 OTH SCREEN MAMMO-MALIGN NEOPLASM OF ASHLEY 08/21/2016 PRINCE BLANCO MD Ot 574.20 CHOLELITHIASIS NOS 08/21/2016 WILLI ENCARNACION, IDALIA Comer Ot 575.6 GB CHOLESTEROLOSIS 08/21/2016 WILLI ENCARNACION, IDALIA Comer Ot V72.63 PRE-PROCEDURAL LABORATORY EXAMINATION 08/21/2016 WILLI ENCARNACION, IDALIA Comer Ot V74.8 SCREEN-BACTERIAL DIS NEC 08/21/2016 WILLI ENCARNACION, IDALIA Comer Ot V72.84 EXAM PRE-OPERATIVE NOS 08/21/2016 PRINCE BLANCO MD, Ot Z12.31 ENCNTR SCREEN MAMMOGRAM FOR MALIGNANT NE 08/21/2016 FREDRICK RODRIGUEZ [facility] Ot E04.2 NONTOXIC MULTINODULAR GOITER 08/21/2016 FAB MATTA LOAN UNDERWRITER Ot R10.32 LEFT LOWER QUADRANT PAIN 08/21/2016 FAB MATTA LOAN UNDERWRITER Ot M79.661 PAIN IN RIGHT LOWER LEG 08/21/2016 PRINCE BLANCO MD, Ot Z12.31 ENCNTR SCREEN MAMMOGRAM FOR MALIGNANT NE 03/01/2017 Ot 780.4 DIZZ INESS AND GIDDINESS 03/01/2017 Ot 784.0 HEAD ACHE 03/01/2017 PRINCE BLANCO MD Ot V76.12 OTH SCREEN MAMMO-MALIGN NEOPLASM OF ASHLEY 03/01/2017 LOLLY MITCHELL MD Ot 241.0 NONTOX UNINODULAR GOITER 03/01/2017 PRINCE [...] MAMMOGRAM FOR MALIGNANT NE 03/01/2017 FREDRICK RODRIGUEZ SIGN ERECTOR Ot E04.2 NONTOXIC MULTINODULAR GOITER 03/01/2017 FAB MATTA LOAN UNDERWRITER Ot R10.32 LEFT LOWER QUADRANT PAIN 03/01/2017 FAB MATTA LOAN UNDERWRITER Ot M79.661 PAIN IN RIGHT LOWER LEG 03/01/2017 PRINCE BLANCO MD Ot Z12.31 ENCNTR SCREEN MAMMOGRAM FOR MALIGNANT NE 03/01/2017 Ot 780.4 DIZZ INESS AND GIDDINESS 03/01/2017 Ot 784.0 HEAD ACHE 03/01/2017 PRINCE BLANCO MD Ot V76.12 OTH SCREEN MAMMO-MALIGN NEOPLASM OF ASHLEY 03/01/2017 LOLLY MITCHELL MD Ot 241.0 NONTOX UNINODULAR GOITER 03/01/2017 PRINCE BLANCO MD Ot V76.12 OTH SCREEN MAMMO-MALIGN NEOPLASM OF ASHLEY 03/01/2017 PRINCE BALNCO MD Ot 574.20 CHOLELITHIASIS NOS 03/01/2017 WILLI ENCARNACION, IDALIA Comer Ot 575.6 GB CHOLESTEROLOSIS 03/01/2017 WILLI ENCARNACION, IDALIA Comer Ot V72.63 PRE-PROCEDURAL LABORATORY EXAMINATION 03/01/2017 WILLI ENCARNACION, IDALIA Comer Ot V74.8 SCREEN-BACTERIAL DIS NEC 03/01/2017 WILLI ENCARNACION, IDALIA Comer Ot V72.84 EXAM PRE-OPERATIVE NOS 03/01/2017 PRINCE BLANCO MD, Ot Z12.31 ENCNTR SCREEN MAMMOGRAM FOR MALIGNANT NE 03/01/2017 FREDRICK RODRIGUEZ Ot E04.2 NONTOXIC MULTINODULAR GOITER 03/01/2017 FAB MATTA LOAN UNDERWRITER Ot R10.32 LEFT LOWER QUADRANT PAIN 03/01/2017 FAB MATTA LOAN UNDERWRITER Ot M79.661 PAIN IN RIGHT LOWER LEG 03/01/2017 PRINCE BLANCO MD, Ot Z12.31 ENCNTR SCREEN MAMMOGRAM FOR MALIGNANT NE 08/18/2017 PRINCE BLANCO MD, Ot Z01.818 ENCOUNTER FOR OTHER PREPROCEDURAL EXAMIN 09/10/2017 PRINCE BLANCO MD, Ot J45.909 UNSPECIFIED ASTHMA, UNCOMPLICATED 09/10/2017 PRINCE BLANCO MD, Ot 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 09/10/2017 PRINCE BLANCO MD, Ot N92.0 EXCESSIVE AND FREQUENT MENSTRUATION WITH 09/10/2017 PRINCE BLANCO MD Ot N93.8 OTHER SPECIFIED ABNORMAL UTERINE AND [...] ACUTE EMBOLISM AND THROMBOSIS OF DEEP VE 09/10/2018 RANULFO MEDINA MD Ot J45.990 EXERCISE INDUCED BRONCHOSPASM 09/10/2018 RANULFO MEDINA MD Ot N13.2 HYDRONEPHROSIS WITH RENAL AND URETERAL C 09/10/2018 CAROL ENCARNACION, RANULFO Denise Ot R10.32 LEFT LOWER QUADRANT PAIN 09/16/2018 CAROL ENCARNACION, RANULFO Denise Ot J45.990 EXERCISE INDUCED BRONCHOSPASM 09/16/2018 CAROL ENCARNACION, RANULFO Denise Ot N13.2 HYDRONEPHROSIS WITH RENAL AND URETERAL C 09/16/2018 RANULFO MEDINA MD Ot R10.32 LEFT LOWER QUADRANT PAIN 09/19/2018 BELLA ENCARNACION, PRINCE Whitmore Ot Z12.31 ENCNTR SCREEN MAMMOGRAM FOR MALIGNANT NE 04/29/2019 W R10.12 Lef t upper quadrant pain Juan A Owens 06/24/2019 W E04.2 Nont oxic multinodular goiter Fab Matta 06/24/2019 W R00.2 Palp itations Fab Matta 06/24/2019 W R06.00 Par oxysmal nocturnal dyspnea Fab Matta 06/27/2019 FAB MATTA LOAN UNDERWRITER Ot R00.2 PALPITATIONS 06/27/2019 FAB MATTA LOAN UNDERWRITER Ot R06.00 DYSPNEA, UNSPECIFIED 06/27/2019 FAB MATTA LOAN UNDERWRITER Ot R00.2 PALPITATIONS 06/27/2019 FAB MATTA LOAN UNDERWRITER Ot R06.00 DYSPNEA, UNSPECIFIED 06/28/2019 W E04.2 Nont oxic multinodular goiter Fab Matta 06/28/2019 W R00.2 Palp itations Fab Matta 06/28/2019 W R06.00 Par oxysmal nocturnal dyspnea Fab Matta 06/30/2019 FAB MATTA LOAN UNDERWRITER Ot R00.2 PALPITATIONS 06/30/2019 FAB MATTA LOAN UNDERWRITER Ot R06.00 DYSPNEA, UNSPECIFIED 07/04/2019 PRINCE BLANCO MD Ot V76.12 OTH SCREEN MAMMO-MALIGN NEOPLASM OF ASHLEY 07/04/2019 PRINCE BLANCO MD Ot 574.20 CHOLELITHIASIS NOS 07/04/2019 WILLI ENCARNACION, IDALIA Comer Ot 575.6 GB CHOLESTEROLOSIS 07/04/2019 WILLI ENCARNACION, IDALIA Comer Ot V72.63 PRE-PROCEDURAL LABORATORY EXAMINATION 07/04/2019 WILLI ENCARNACION, IDALIA Comer Ot V74.8 SCREEN-BACTERIAL DIS NEC 07/04/2019 WILLI ENCARNACION, IDALIA Comer Ot V72.84 EXAM PRE-OPERATIVE NOS 07/04/2019 BELLA ENCARNACION, PRINCE Whitmore Ot Z12.31 ENCNTR SCREEN MAMMOGRAM FOR MALIGNANT NE 07/04/2019 FREDRICK RODRIGUEZ MIKAEL Ot E04.2 NONTOXIC MULTINODULAR GOITER 07/04/2019 FAB MATTA APRN Ot R10.32 LEFT LOWER QUADRANT PAIN 07/04/2019 FAB MATTA APRN Ot M79.661 PAIN IN RIGHT LOWER LEG 07/04/2019 PRINCE BLANCO MD, Ot Z12.31 ENCNTR SCREEN MAMMOGRAM FOR MALIGNANT NE 07/04/2019 PRINCE BLANCO MD, Ot J45.909 UNSPECIFIED ASTHMA, UNCOMPLICATED 07/04/2019 PRINCE BLANCO MD, Ot 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 07/04/2019 PRINCE BLANCO MD, Ot N92.0 EXCESSIVE AND FREQUENT MENSTRUATION WITH 07/04/2019 PRINCE BLANCO MD Ot N93.8 OTHER SPECIFIED ABNORMAL UTERINE AND VAG 07/04/2019 PRINCE BLANCO MD Ot Z12.31 ENCNTR SCREEN MAMMOGRAM FOR MALIGNANT NE 07/04/2019 GRACIELA ENCARNACION, JUAN A Nuñez Ot I82.492 ACUTE EMBOLISM AND THROMBOSIS OF DEEP VE 07/04/2019 PRINCE BLANCO MD, Ot Z12.31 ENCNTR SCREEN MAMMOGRAM FOR MALIGNANT NE 07/04/2019 FAB MATTA LOAN UNDERWRITER Ot R00.2 PALPITATIONS 07/04/2019 FAB MATTA LOAN UNDERWRITER Ot R06.00 DYSPNEA, UNSPECIFIED 07/05/2019 FAB MATTA LOAN UNDERWRITER Ot R00.2 PALPITATIONS 07/05/2019 FAB MATTA APRN Ot R06.00 DYSPNEA, UNSPECIFIED 07/06/2019 FAB MATTA LOAN UNDERWRITER Ot R00.2 PALPITATIONS 07/06/2019 FAB MATTA LOAN UNDERWRITER Ot R06.00 DYSPNEA, UNSPECIFIED 07/13/2019 FAB MATTA LOAN UNDERWRITER Ot R00.1 BRADYCARDIA, UNSPECIFIED 07/13/2019 FAB MATTA LOAN UNDERWRITER Ot R00.2 PALPITATIONS 07/13/2019 FAB MATTA APRN Ot R06.00 DYSPNEA, UNSPECIFIED 07/14/2019 FAB MATTA APRN Ot E04.1 NONTOXIC SINGLE THYROID NODULE 07/27/2019 FAB MATTA APRN Ot E04.1 NONTOXIC SINGLE THYROID NODULE 08/05/2019 JACIEL HUTTON MD Ot Z01.818 ENCOUNTER FOR OTHER PREPROCEDURAL EXAMIN 08/05/2019 JACIEL HUTTON MD, Ot Z01.818 ENCOUNTER FOR OTHER PREPROCEDURAL EXAMIN 08/08/2019 JACIEL HUTTON MD, Ot Z01.818 ENCOUNTER FOR OTHER PREPROCEDURAL EXAMIN Procedures There is no data. Results Test Result Range Urine beta human chorionic gonadotropin (hCG) measurement - 08/21/17 10:57 Urine beta human chorionic gonadotropin (hCG) measurem ent NEGATIVE NEGATIVE Methicillin resistant Staphylococcus aur eus (MRSA) screening culture - 08/21/17 11:07 Methicillin resistant Staphylococcus aureus (MRSA) scr eening culture NEG NRG Complete blood count (CBC) with automate d white blood cell (WBC) differential - 08/21/17 11:25 Blood leukocytes automated count (number/volume) 6.3 10*3/uL 4.3-11.0 Blood erythrocytes automated count (number/volume) 4.58 10*6/uL 4.35-5.85 Venous blood hemoglobin measurement (mass/volume) 14.6 g/dL 11.5-16.0 Blood hematocrit (volume fraction) 41 % 35-52 Automated erythrocyte mean corpuscular volume 90 [ foz_us] 80-99 Automated erythrocyte mean corpuscular h emoglobin (mass per erythrocyte) 32 pg 25-34 Automated erythrocyte mean corpuscular h emoglobin concentration measurement (mass/volume) 35 g/dL 32-36 Automated erythrocyte distribution width ratio 12. 6 % 10.0- 14.5 Automated blood platelet count [...] 10*3 1.0-4.0 Blood monocytes automated count (number/volume) 0. 5 10*3 0.0-1.0 Automated eosinophil count 0.0 10*3/uL 0 .0-0.3 Automated blood basophil count (count/volume) 0.0 10*3/uL 0.0-0.1 Complete blood count (CBC) with automate d white blood cell (WBC) differential - 09/10/18 06:52 Blood leukocytes automated count (number/volume) 9.6 10*3/uL 4.3-11.0 Blood erythrocytes automated count (number/volume) 4.78 10*6/uL 4.35-5.85 Venous blood hemoglobin measurement (mass/volume) 14.8 g/dL 11.5-16.0 Blood hematocrit (volume fraction) 43 % 35-52 Automated erythrocyte mean corpuscular volume 90 [ foz_us] 80-99 Automated erythrocyte mean corpuscular h emoglobin (mass per erythrocyte) 31 pg 25-34 Automated erythrocyte mean corpuscular h emoglobin concentration measurement (mass/volume) 35 g/dL 32-36 Automated erythrocyte distribution width ratio 12. 7 % 10.0- 14.5 Automated blood platelet count [...] 10*3 1.0-4.0 Blood monocytes automated count (number/volume) 0. 8 10*3 0.0-1.0 Automated eosinophil count 0.1 10*3/uL 0 .0-0.3 Automated blood basophil count (count/volume) 0.0 10*3/uL 0.0-0.1 Comprehensive metabolic panel - 09/10/18 06:52 Serum or plasma sodium measurement (moles/volume) 142 mmol/L 135-145 Serum or plasma potassium measurement (moles/volume) 3.2 mmol/L 3.6-5.0 Serum or plasma chloride measurement (moles/volume) 107 mmol/L 98-107 Carbon dioxide 22 mmol/L 21-32 Serum or plasma anion gap determination (moles/volume) 13 mmol/L 5-14 Serum or plasma urea nitrogen measurement (mass/volume ) 14 mg/dL 7-18 Serum or plasma creatinine measurement (mass/volume) 1.02 mg/dL 0.60-1.30 Serum or plasma urea nitrogen/creatinine mass ratio 14 NRG Serum or plasma creatinine measurement w ith calculation of estimated glomerular filtration rate 58 NRG Serum or plasma glucose measurement (mass/volume) 116 mg/dL 70-105 Serum or plasma calcium measurement (mass/volume) 9.4 mg/dL 8.5-10.1 Serum or plasma total bilirubin measurement (mass/volu me) 1.0 mg/dL 0.1-1.0 Serum or plasma alkaline phosphatase liudmila surement (enzymatic activity/volume) 56 U/L 40-136 Serum or plasma aspartate aminotransfera se measurement (enzymatic activity/volume) 35 U/L 5-34 Serum or plasma alanine aminotransferase measurement (enzymatic activity/volume) 49 U/L 0-55 Serum or plasma protein measurement (mass/volume) 6.8 g/dL 6.4-8.2 Serum or plasma albumin measurement (mass/volume) 4.2 g/dL 3.2-4.5 CALCIUM CORRECTED 9.2 mg/dL 8.5-10.1 Serum or plasma choriogonadotropin (preg flor test) detection - 09/10/18 06:52 Serum or plasma choriogonadotropin ( test) de tection NEGATIVE NEGATIVE Complete urinalysis with reflex to cultu re - 09/10/18 07:30 Urine color determination YELLOW NRG Urine clarity determination CLEAR NR G Urine pH measurement by test strip 6.5 5-9 Specific gravity of urine by test strip 1.020 1.016-1.022 Urine protein assay by test strip, semi-quantitative 2+ NEGATIVE Urine glucose detection by automated test strip NE GATIVE NEGATIVE Erythrocytes detection in urine sediment by light micr oscopy 5+ NEGATIVE Urine ketones detection by automated test strip 4+ NEGATIVE Urine nitrite detection by test strip NEGATIVE NEGATIVE Urine total bilirubin detection by test strip NEGA TIVE NEGATIVE Urine urobilinogen measurement by automated test strip (mass/volume) NORMAL NORMAL Urine leukocyte esterase detection by dipstick 1+ NEGATIVE Automated urine sediment erythrocyte cou nt by microscopy (number/high power field) > [HPF] NRG Automated urine sediment leukocyte count by microscopy (number/high power field) [HPF] NRG Bacteria detection in urine sediment by light microsco py MODERATE NRG Squamous epithelial cells detection in u rine sediment by light microscopy 10-25 NRG Crystals detection in urine sediment by light microsco py PRESENT NRG Casts detection in urine sediment by light microscopy NONE NRG Mucus detection in urine sediment by light microscopy NEGATIVE NRG Complete urinalysis with reflex to culture NO NRG Amorphous sediment detection in urine sediment by ligh t microscopy MOD JARED URATES NRG Renal epithelial cells detection in urin e sediment by light microscopy NONE NRG Complete blood count (CBC) with automate d white blood cell (WBC) differential - 06/24/19 14:05 Blood leukocytes automated count (number/volume) 6.9 10*3/uL 4.3-11.0 Blood erythrocytes automated count (number/volume) 4.68 10*6/uL 4.35-5.85 Venous blood hemoglobin measurement (mass/volume) 14.4 g/dL 11.5-16.0 Blood hematocrit (volume fraction) 43 % 35-52 Automated erythrocyte mean corpuscular volume 91 [ foz_us] 80-99 Automated erythrocyte mean corpuscular h emoglobin (mass per erythrocyte) 31 pg 25-34 Automated erythrocyte mean corpuscular h emoglobin concentration measurement (mass/volume) 34 g/dL 32-36 Automated erythrocyte distribution width ratio 12. 8 % 10.0- 14.5 Automated blood platelet count (count/volume) 215 10*3/uL 130-400 Automated blood platelet mean volume measurement 9.5 [foz_us] 7.4-10.4 Automated blood neutrophils/100 leukocytes 65 % 42-75 Automated blood lymphocytes/100 leukocytes 26 % 12-44 Blood monocytes/100 leukocytes 8 % 0-12 Automated blood eosinophils/100 leukocytes 0 % 0-10 Automated blood basophils/100 leukocytes 1 % 0-10 Blood neutrophils automated count (number/volume) 4.5 10*3 1.8-7.8 Blood lymphocytes automated count (number/volume) 1.8 10*3 1.0-4.0 Blood monocytes automated count (number/volume) 0. 5 10*3 0.0-1.0 Automated eosinophil count 0.0 10*3/uL 0 .0-0.3 Automated blood basophil count (count/volume) 0.0 10*3/uL 0.0-0.1 Fibrin D-dimer FEU measurement in platel et poor plasma (mass/volume) - 06/24/19 14:05 Fibrin D-dimer FEU measurement in platelet poor plasma (mass/volume) 0.27 ug/mL 0.00-0.49 Comprehensive metabolic panel - 06/24/19 14:05 Serum or plasma sodium measurement (moles/volume) 141 mmol/L 135-145 Serum or plasma potassium measurement (moles/volume) 3.6 mmol/L 3.6-5.0 Serum or plasma chloride measurement (moles/volume) 108 mmol/L 98-107 Carbon dioxide 24 mmol/L 21-32 Serum or plasma anion gap determination (moles/volume) 9 mmol/L 5-14 Serum or plasma urea nitrogen measurement (mass/volume ) 13 mg/dL 7-18 Serum or plasma creatinine measurement (mass/volume) 0.83 mg/dL 0.60-1.30 Serum or plasma urea nitrogen/creatinine mass ratio 16 NRG Serum or plasma creatinine measurement w ith calculation of estimated glomerular filtration rate > NRG Serum or plasma glucose measurement (mass/volume) 124 mg/dL 70-105 Serum or plasma calcium measurement (mass/volume) 9.5 mg/dL 8.5-10.1 Serum or plasma total bilirubin measurement (mass/volu me) 0.6 mg/dL 0.1-1.0 Serum or plasma alkaline phosphatase liudmila surement (enzymatic activity/volume) 48 U/L 40-136 Serum or plasma aspartate aminotransfera se measurement (enzymatic activity/volume) 18 U/L 5-34 Serum or plasma alanine aminotransferase measurement (enzymatic activity/volume) 17 U/L 0-55 Serum or plasma protein measurement (mass/volume) 6.9 g/dL 6.4-8.2 Serum or plasma albumin measurement (mass/volume) 4.2 g/dL 3.2-4.5 CALCIUM CORRECTED 9.3 mg/dL 8.5-10.1 Coronavirus SARS-CoV-2 SO 2018 0 07:52 Coronavirus Ab [Units/volume] in Serum Negative Negative Encounters ACCT No. Visit Date/Time Discharge Status Pt. Type Provider Facility Loc./Unit Complaint [id number] 08/28/2016 08:23:04 08/28/2016 23:59:5 9 CLS Outpatient [id number] 08/08/2019 05:48:00 15:06:00 DIS Outpatient BRENNEN ENCARNACION, JACIEL Denise [facility] PREOP COLONOSCOPY [id number] 07/13/2019 09:45:00 23:59:59 CLS Outpatient FAB MATTA APRN [facility] RAD THYROID NODULE [id number] 07/13/2019 09:45:00 23:59:59 CLS Preadmit FAB MATTA APRN [facility] RAD THYROID NODULE [id number] 07/04/2019 07:44:00 23:59:59 CLS Outpatient FAB MATTA APRN [facility] CARD PALPITATIONS [id number] 06/24/2019 13:59:00 23:59:59 CLS Outpatient FAB MATTA APRN [facility] LAB DYSPNEA, PALPITATIONS [id number] 09/13/2018 07:24:00 23:59:59 CLS Outpatient PRINCE BLANCO MD [facility] RAD SCREENING [id number] 09/10/2018 06:49:00 09:43:00 DIS Emergency RANULFO MEDINA MD [facility] ER POSS KIDNEY STO NE [id number] 05/06/2018 15:20:00 23:59:59 CLS Outpatient JUAN A OWENS MD [facility] RAD LT LEG PAIN,SWELLING [id number] 09/10/2017 07:35:00 23:59:59 CLS Outpatient PRINCE BLANCO MD [facility] RAD ROUTINE SCREENI NG [id number] 08/21/2017 10:46:00 018 23:59:59 CLS Outpatient PRINCE BLANCO MD [facility] DYSFUNCTIONAL U TERINE BLEEDING/UTERINE MASS [id number] 08/18/2017 05:32:00 018 13:20:00 DIS Outpatient PRINCE BLANCO MD [facility] PREOP DYSFUNCTIONAL U TERINE BLEEDING/UTERINE MASS [id number] 05/05/2017 09:29:00 018 23:59:59 CLS Preadmit PRINCE BLANCO MD [facility] RAD ROUTINE SCREENI NG [id number] 05/23/2016 14:12:00 017 23:59:59 CLS Outpatient PRINCE BLANCO MD [facility] RAD SCREENING [id number] 10/11/2015 12:27:00 016 23:59:59 CLS Outpatient FAB MATTA APRN [facility] RAD RIGHT CALF PAIN [id number] 09/27/2015 11:00:00 016 23:59:59 CLS Outpatient FAB MATTA APRN [facility] RAD L FLANK PAIN [id number] 05/14/2015 07:29:00 016 23:59:59 CLS Outpatient FREDRICK RODRIGUEZ [facility] RAD MULTINODULAR GO ITER [id number] 05/14/2015 07:26:00 016 23:59:59 CLS Outpatient PRINCE BLANCO MD [facility] RAD SCREENING [id number] 04/28/2014 08:00:00 015 23:59:59 CLS Outpatient IDALIA MÁRQUEZ MD [facility] GALL BLADDER POLYPS [id number] 04/24/2014 09:15:00 015 23:59:59 CLS Outpatient IDALIA MÁRQUEZ MD [facility] SDC FAMILY HISTORY OF POLY PS; DIARRHEA [id number] 04/21/2014 10:45:00 015 23:59:59 CLS Outpatient IDALIA MÁRQUEZ MD [facility] PREOP GALL BLADDER POLYPS [id number] 04/19/2014 15:30:00 015 23:59:59 CLS Outpatient IDALIA MÁRQUEZ MD [facility] PREOP FAMILY HISTORY OF POLY PS; DIARRHEA [id number] 04/18/2014 08:44:00 015 23:59:59 CLS Outpatient PRINCE BLANCO MD [facility] RAD SCREENING [id number] 04/12/2014 08:55:00 015 23:59:59 CLS Outpatient PRINCE BLANCO MD [facility] RAD BILLIARY CHOLIC [id number] 10/12/2013 13:15:00 014 23:59:59 CLS Outpatient LOLLY MITCHELL MD [facility] RAD DYSPHAGIA GOITE R [id number] 02/24/2013 09:15:00 013 23:59:59 CLS Outpatient PRINCE BLANCO MD [facility] RAD SCREENING [id number] 08/12/2019 08:00:00 P EN Andreina HUTTON MD, JACIEL Denise [facility] ENDO FAMILY HX COLON CA [id number] 04/18/2014 08:45:00 Document Registration [id number] 11/25/2011 08:41:00 Document Registration [id number] 06/02/2011 04:37:00 Document Registration [id number] 12/18/2009 10:11:00 Document Registration [id number] 08/03/2009 10:17:00 Document Registration [id number] 07/06/2009 20:51:00 Document Registration [id number] 02/13/2009 10:43:00 Document Registration [id number] 02/02/2009 09:59:00 Document Registration
[2019-08-12] MEDS ORDERED: LACTATED RINGERS 1,000 ML IV STA (07:32)
[2019-08-12] MEDS ORDERED: MIDAZOLAM 2 MG/2 ML (VERSED) VIAL ONE (07:43)
[2019-08-12] MEDS ORDERED: LIDOCAINE JELLY 2% 6 ML SYRINGE MM PRN (07:45)
[2019-08-12] MEDS ORDERED: proPOfol 200 MG/20 ML (DIPRIVAN) VIAL IV ONE (07:45)
[2019-08-12] MEDS ORDERED: PROPOFOL INJECTION 50 ML IV ONE ×2 (07:45→08:17)
[2019-08-12 08:00] VITALS: BP 113/76
--- NOTE | 2019-08-12 08:01 | Pre-Op Note & Conscious Sedat ---
Pre-Operative Progress Note H&P Reviewed The H&P was reviewed, patient examined and no changes noted. Date H&P Reviewed: Aug 12, 2019 Time H&P Reviewed: 07:50 Conscious Sedation Pre-Proced ASA Score 1 For ASA 3 and 4: Consider anesthesia and medical clearance. Also, for patients with a history of failed moderate sedation consider anesthesia. Airway Lungs Heart ASA score ASA 1: a normal healthy patient ASA 2: a patient with a mild systemic disease (mid diabetes, controlled hypertension, obesity ASA 3: a patient with a severe systemic disease that limits activity (angina, COPD, prior Myocardial infarction) ASA 4: a patient with an incapacitating disease that is a constant threat to life (CHF, renal failure) ASA 5: a moribund patient not expected to survive 24 hrs. (ruptured aneurysm) ASA 6: a declared brain- patient whose organs are being harvested. For emergent operations, add the letter E after the classification Mallampati Classification Grade 1 Sedation Plan Analgesia, Amnesia, Plan communicated to team members, Discussed options with patient/fam, Discussed risks with patient/fam The patient is an appropriate candidate to undergo the planned procedure, sedation, and anesthesia. The patient immediately re-assessed prior to indication. JACIEL HUTTON MD Aug 12, 2019 08:01
[2019-08-12 08:30] VITALS: BP 100/56
[2019-08-12 08:35] VITALS: BP 102/59
[2019-08-12 08:40] VITALS: BP 103/61
[2019-08-12 09:08] VITALS: BP 109/70
[2019-08-12 09:11] VITALS: BP 109/70
--- NOTE | 2019-08-12 15:05 | OPERATIVE REPORT ---
DATE OF SERVICE: COLONOSCOPY SUMMARY INDICATION FOR THE PROCEDURE: Screening colonoscopy. DESCRIPTION OF PROCEDURE: The patient was placed in the left lateral decubitus position. Prior to undergoing colonoscopy, a digital rectal evaluation was performed. Anal sphincter tone was normal and the perianal reflexes were intact. No abnormalities were noted on digital inspection of anal canal or distal rectal vault. The colonoscope was then inserted into the rectum and under direct visualization advanced to the cecum. The cecum was identified by identification of the ileocecal valve and cecal strap. Photographic documentation was obtained. Careful inspection was made as the colonoscope was withdrawn. The patient tolerated the procedure well. Quality of the prep was good. FINDINGS: There was no evidence for external hemorrhoids. One small grade I internal hemorrhoid was noted. The rectum was otherwise unremarkable. The sigmoid colon, descending colon, splenic flexure and transverse colon and hepatic flexure were unremarkable. Present in the mid ascending colon was a diminutive polyp. It was biopsied and ablated and submitted for histopathology. The remainder of the ascending colon and cecum was unremarkable. ASSESSMENT AND PLAN: 1. One diminutive polyp was removed from the mid ascending colon. As long as there are no surprises on histopathology report, we will advocate repeat surveillance colonoscopy in 5 years due to family history of colon cancer, index case being her father as I recall diagnosed around the age of 70. 2. One small grade I internal hemorrhoid was noted, but no evidence for external hemorrhoids. I thank you for the referral of this pleasant lady. Job ID: [id number] DocumentID: [id number] Dictated Date: 08/12/2019 10:11:16 Senior [employer] Date: 08/12/2019 15:05:04 Dictated By: JACIEL HUTTON MD [facility]
--- NOTE | 2019-08-12 15:17 | Anesthesia-General Post-Op ---
MAC Patient Condition Mental Status/LOC: Same as Preop Cardiovascular: Satisfactory Nausea/Vomiting: Absent Respiratory: Satisfactory Pain: Controlled Complications: Absent Post Op Complications Complications None Follow Up Care/Instructions Patient Instructions None needed. Anesthesiology Discharge Order Discharge Order Patient is doing well, no complaints, stable vital signs, no apparent adverse anesthesia problems. No complications reported per nursing. PARAS BECERRA CRNA Aug 12, 2019 15:17
== END 2019-08-12 09:15 | disposition home or self-care (01) ==
LOC: ENDO 07:04
PROVIDERS: ATTEND Internal Medicine
DX: Z12.11 Encounter for screening for malignant neoplasm of colon (principal); K63.5 Polyp of colon; K64.8 Other hemorrhoids; Z86.010 Personal history of colon polyps; R00.1 Bradycardia, unspecified
CPT/HCPCS: 84703

== ENCOUNTER → 2020-07-23 | Outpatient (CLI) | payer BC ==
[~2020-07-23] MED LIST changes: -OXYC-471 PO; +OXYC1TAB11 PO
--- NOTE | 2020-07-23 11:25 | Diagnostic Imaging Report ---
INDICATION: THYROID NODULE TECHNIQUE: Grayscale sonographic images of the thyroid gland. CORRELATION STUDY: None FINDINGS: RIGHT LOBE: 5.0 x 1.6 x 2.1 cm. 2 small nodules right thyroid lobe. Largest at the inferior pole 1.0 x 0.6 x 0.7 cm. Additional in the mid superior pole 0.6 x 0.5 x 0.6 cm generally stable. LEFT LOBE: 4.5 x 1.6 x 1.5 cm. 2 small hypoechoic nodules left lobe. Largest inferior pole 1.1 x 0.6 x 0.8 cm additional super pole 0.8 x 0.6 x 0.8 cm. Isthmus appears unremarkable. IMPRESSION: Generally stable appearance about the thyroid gland with bilateral thyroid nodules. Definitive dominant or concerning thyroid mass does not appear to be suggested at this time. Followup ultrasound in one year would be recommended. (Normal gland size: 4-5 x 2 x 2 cm) Dictated by: Dictated on workstation # [id number]
== END ==
LOC: RAD 09:45
PROVIDERS: ATTEND Nurse Practitioner Family
DX: E04.2 Nontoxic multinodular goiter (principal)
CPT/HCPCS: 76536

== ENCOUNTER → 2020-08-09 | Outpatient (CLI) | payer BC ==
--- NOTE | 2020-08-09 11:49 | Diagnostic Imaging Report ---
Digital mammogram INDICATION: Bilateral screening This study was compared to the prior exam of 09/13/2018, 09/10/2017 and 05/23/2016. At this time there are no current complaints. The current study was also evaluated with a Computer Aided Detection (CAD) system. FINDINGS: The fibroglandular tissue in both breasts is dense. This does limit the sensitivity of this exam. Overall, there does not appear to have been any significant change when compared to the prior study. No primary or secondary sign of malignancy is noted. IMPRESSION: There is no radiographic evidence for malignancy. The patient should have her annual bilateral screening mammogram on schedule in July 2021. ACR BI-RADS Category 1: Negative. Result letter will be mailed to the patient. Note: At least 10% of breast cancer is not imaged by mammography. Dictated by: Dictated on workstation # [id number]
== END ==
LOC: RAD 07:25
PROVIDERS: ATTEND Obstetrics & Gynecology
DX: Z12.31 Encounter for screening mammogram for malignant neoplasm of breast (principal)
CPT/HCPCS: 77063; 77067

== ENCOUNTER → 2021-08-23 | Outpatient (CLI) | payer OTHER ==
--- NOTE | 2021-08-23 09:08 | Diagnostic Imaging Report ---
PROCEDURE: US Thyroid. TECHNIQUE: Multiple real-time grayscale images were obtained of the thyroid in various projections. INDICATION: Clinically palpable thyroid nodule. FINDINGS: Right lobe measures 5.5 x 2.1 x 1.9 cm. Left lobe measures 4.4 x 1.5 x 2 cm. Isthmus is 2 mm. There is an anechoic cyst in the right lobe with a few coarse calcifications measuring 9 x 6 mm. The left lobe shows a hypoechoic oval homogeneous well-circumscribed nodule without calcification measuring 7 x 6 mm. This does show mild vascularity. There is a 2nd isoechoic oval nodule without calcification inferiorly in the left lobe measuring 1 x 0.6 cm. IMPRESSION: 1. There are 2 nodules within the left lobe considered mildly suspicious. One-year ultrasound followup recommended. TI-RADS 3 2. 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 Dictated by: Dictated on workstation # [id number]
== END ==
LOC: MERGE 08:00 → RAD 08:00
PROVIDERS: ATTEND Nurse Practitioner Family
DX: E04.2 Nontoxic multinodular goiter (principal)
CPT/HCPCS: 76536

== ENCOUNTER → 2021-12-26 | Outpatient (CLI) | payer OTHER ==
--- NOTE | 2021-12-26 11:54 | Diagnostic Imaging Report ---
PROCEDURE: US right lower extremity venous. TECHNIQUE: Multiple real-time grayscale images were obtained over the right lower extremity in various projections. Additional spectral analysis and color Doppler duplex images were also obtained. INDICATION: Right calf pain. There is no evidence of right lower extremity DVT. Right lower extremity deep venous system shows normal compressibility with normal response to augmentation and Valsalva. No fluid collection or mass is detected. IMPRESSION: No evidence of right lower extremity DVT. Dictated by: Dictated on workstation # [id number]
== END ==
LOC: RAD 10:07
PROVIDERS: ATTEND Nurse Practitioner Family
DX: M79.661 Pain in right lower leg (principal)

== ENCOUNTER → 2021-12-31 | Outpatient (CLI) | payer OTHER ==
--- NOTE | 2021-12-31 16:51 | Diagnostic Imaging Report ---
EXAMINATION: Chest 2 view HISTORY: Cough COMPARISON: None available. FINDINGS: The lungs are clear without edema or pneumonia. No pleural effusion or pneumothorax. Heart size is normal. IMPRESSION: 1. Clear lungs. Dictated by: Dictated on workstation # [id number]
== END ==
LOC: RAD 14:01
PROVIDERS: ATTEND Nurse Practitioner Family
DX: R05.9 Cough, unspecified (principal)
CPT/HCPCS: 71046

== ENCOUNTER → 2022-02-10 | Outpatient (CLI) | payer OTHER ==
--- NOTE | 2022-02-10 10:47 | Diagnostic Imaging Report ---
INDICATION: Routine screening. Comparison is made with prior mammogram from 08/09/2020 and 09/13/2018. 2-D and 3-D bilateral screening mammography was performed with CAD. Both breasts are heterogeneously dense, limiting the sensitivity of mammography. There are scattered benign calcifications throughout both breasts. No mass or malignant-appearing microcalcifications are seen. Axillae are unremarkable. IMPRESSION: No mammographic features suspicious for malignancy are identified. ACR BI-RADS Category 2: Benign findings. Result letter will be mailed to the patient. Note: At least 10% of breast cancer is not imaged by mammography. BI-RADS Category 2 Dictated by: Dictated on workstation # [id number]
== END ==
LOC: RAD 07:30
PROVIDERS: ATTEND Obstetrics & Gynecology
DX: Z12.31 Encounter for screening mammogram for malignant neoplasm of breast (principal)
CPT/HCPCS: 77063; 77067